=== PATIENT | male | born 1960 | race Caucasian/White ===

== ENCOUNTER → 2016-09-15 | Outpatient (CLI) | payer OTHER ==
[2016-09-15 18:01] LABS: ALT/SGPT 22 U/L (12-78); BLOOD UREA NITROGEN 17 mg/dl (7-18); CALCIUM 9.2 mg/dl (8.5-10.1); CARBON DIOXIDE 23 mmol/L (21-32); CHLORIDE 107 mmol/L (98-107); CHOLESTEROL 130 mg/dl (0-200); GLUCOSE 111 mg/dl (70-99); POTASSIUM 4.6 mmol/L (3.5-5.1); SODIUM 138 mmol/L (136-145); TRIGLYCERIDES 71 mg/dl (0-150); VERY LOW DENSITY LIPOPROT CALC 14 mg/dl
[2016-09-15 18:04] LABS: ALB/GLOB RATIO 1.2 (0.9-2); ALKALINE PHOSPHATASE 73 U/L (45-117); AST/SGOT 22 U/L (15-37); CHOLESTEROL/HDL RATIO 3.3; HDL CHOLESTEROL 40 mg/dl; LDL CHOLESTEROL CALCULATED 76 mg/dl
[2016-09-16 06:05] LABS: ESTIMATED AVERAGE GLUCOSE 117 mg/dl; HA1C FLAG Normal (Normal)
== END | disposition home or self-care (01) ==
LOC: C.LABPVFM 12:02
PROVIDERS: ATTEND Nurse Practitioner
DX: I10 Essential (primary) hypertension (principal); E78.5 Hyperlipidemia, unspecified; R73.01 Impaired fasting glucose

== ENCOUNTER → 2017-04-05 | Outpatient (CLI) | payer OTHER ==
[2017-04-05 17:48] LABS: ALT/SGPT 26 U/L (12-78); BLOOD UREA NITROGEN 19 mg/dl (7-18); BUN/CREATININE RATIO 14.7 (10-20); CALCIUM 9.3 mg/dl (8.5-10.1); CARBON DIOXIDE 26 mmol/L (21-32); CHLORIDE 106 mmol/L (98-107); CHOLESTEROL 151 mg/dl (0-200); GLUCOSE 119 mg/dl (70-99); POTASSIUM 4.7 mmol/L (3.5-5.1); SODIUM 136 mmol/L (136-145); TRIGLYCERIDES 64 mg/dl (0-150); VERY LOW DENSITY LIPOPROT CALC 13 mg/dl
[2017-04-05 17:51] LABS: ALB/GLOB RATIO 1.2 (0.9-2); ALKALINE PHOSPHATASE 81 U/L (45-117); AST/SGOT 22 U/L (15-37); CHOLESTEROL/HDL RATIO 3.6; HDL CHOLESTEROL 42 mg/dl; LDL CHOLESTEROL CALCULATED 96 mg/dl
[2017-04-06 07:46] LABS: ESTIMATED AVERAGE GLUCOSE 114 mg/dl; HA1C FLAG Normal (Normal)
== END | disposition home or self-care (01) ==
LOC: C.LABPVFM 10:59
PROVIDERS: ATTEND Nurse Practitioner
DX: E78.5 Hyperlipidemia, unspecified (principal); R73.01 Impaired fasting glucose; I10 Essential (primary) hypertension

== ENCOUNTER → 2017-10-06 | Outpatient (CLI) | payer OTHER ==
[2017-10-06 17:44] LABS: BLOOD UREA NITROGEN 20 mg/dl (7-18); CALCIUM 9.4 mg/dl (8.5-10.1); CARBON DIOXIDE 25 mmol/L (21-32); CREATININE 1.16 mg/dl (0.60-1.40); GLUCOSE 94 mg/dl (70-99); POTASSIUM 4.4 mmol/L (3.5-5.1); SODIUM 137 mmol/L (136-145)
== END | disposition home or self-care (01) ==
LOC: C.LABPVFM 13:47
PROVIDERS: ATTEND Nurse Practitioner
DX: I10 Essential (primary) hypertension (principal); R73.01 Impaired fasting glucose

== ENCOUNTER 2019-10-12 10:56 | Observation (INO) ==
[2019-10-12 11:42] LABS: Basophils # (auto) 0.06 K/uL (0-0.2); Basophils % (auto) 0.7 %; Eosinophils # (auto) 0.03 K/uL (0-0.5); Eosinophils % (auto) 0.3 %; Hematocrit (blood only) 37.5 % (42-52); Hemoglobin 13.1 g/dL (14.0-18.0); Immature Granulocytes # (auto) 0.11 K/uL (0.00-0.02); Immature Granulocytes % (auto) 1.3 %; Lymphocytes # (auto) 1.19 K/uL (1.2-3.4); Lymphocytes % (auto) 13.6 %; Mean Corpuscular Hemoglobin 31.9 pg (25-34); Mean Corpuscular Hgb Conc 34.9 g/dL (32-36); Mean Corpuscular Volume 91.2 fL (80-100); Mean Platelet Volume 10.2 fL (7.4-10.4); Monocytes # (auto) 0.57 K/uL (0.11-0.59); Monocytes % (auto) 6.5 %; Neutrophils # (auto) 6.78 K/uL (1.4-6.5); Neutrophils % (auto) 77.6 %; Platelet Count 252 K/uL (130-400); RDW Coefficient of Variation 15.7 % (11.5-14.5); Red Blood Count 4.11 M/uL (4.7-6.1); White Blood Count 8.74 K/uL (4.8-10.8)
[2019-10-12 11:48] LABS: Appearance Urine Clear (Clear); Bacteria Urine Automated Negative (Negative); Bilirubin Urine Negative (Negative); Blood Urine Negative (Negative); Color Urine Yellow; Epithelial Cell Urine Auto 0-5 /lpf (0-5); Glucose Urine UA Negative (Negative); Ketones Urine Negative (Negative); Leukocyte Esterase Urine Negative (Negative); Nitrite Urine Negative (Negative); Protein Urine 1+ (Negative); RBC Urine Automated 0-4 /hpf (0-4); Specific Gravity Urine 1.018 (1.000-1.030); Urobilinogen Urine Negative (Negative); pH Urine 5.5 (4.5-7.5)
[2019-10-12] MEDS: SODIUM CHLORIDE 0.9% 1000ML 1,000 ML IV SCH ×3 (11:53→17:18)
--- NOTE | 2019-10-12 11:53 | XRay Report ---
XR chest 1V portable CLINICAL HISTORY: 59 years-old Male presenting with arf, cough, flulike symptoms for several weeks. TECHNIQUE: Portable upright AP view of the chest was obtained. COMPARISON: None. FINDINGS: Borderline enlargement of the cardiac silhouette. Mild prominence of pulmonary vasculature with promi nence of interstitial lung markings. Bronchial wall cuffing is suspected diffusely. And a density wit h vague reticulonodular opacities in the lung bases, right greater than left. No large effusion or pn eumothorax. Degenerative changes of the thoracic spine. Upper abdomen normal. IMPRESSION: 1. Bibasilar reticulonodular vague opacities may suggest mild diffuse interstitial infiltrates or di ffuse bronchitis/bronchiolitis. This could relate to an inflammatory or atypical infectious etiology. 2. Borderline cardiomegaly with possible mild volume overload. ACT 112: Negative or not required by law. Results electronically sent 10/12/2019 11:51 AM to: Citlali Cole DO Electronically signed by: Alex Gannon M.D. 10/12/2019 11:51 AM
[2019-10-12 11:56] LABS: Albumin Level 3.2 gm/dl (3.4-5.0); BUN Creatinine Ratio 23.8 (10-20); Calcium 8.8 mg/dl (8.5-10.1); Creatinine Clr Calc Pharmacy 39.7 ml/min; Est GFR (African American) 33.8; Est GFR (Non-African American) 29.2; Potassium 3.6 mmol/L (3.5-5.1)
[2019-10-12 12:04] LABS: Albumin Globulin Ratio 0.8 (0.9-2); Total Protein 7.2 gm/dl (6.4-8.2); Troponin I 0.617 ng/ml (0-0.045)
--- NOTE | 2019-10-12 12:48 | CT Scan Report ---
CT abd pelvis wo con CLINICAL HISTORY: 59 years-old Male presenting with arf. TECHNIQUE: Multidetector CT of the abdomen and pelvis was performed without the use of intravenous co ntrast. IV contrast: None. One or more dose lowering techniques were used consistent with the princip les of ALA (as low as reasonably achievable), including automatic exposure control, mA or kV adjust ment to individual patient size, and/or use of iterative reconstruction. COMPARISON: None. CT DOSE (mGy.cm): The estimated cumulative dose is 972.16 mGycm. FINDINGS: Control Systems Developer topogram: Unremarkable. Lung bases: Multichamber enlargement of the heart. Coronary artery, aortic valve, and mitral annular calcification. No pericardial or pleural effusion. Extensive nodular infiltrates throughout the lung bases with a slight dependent predominance. Mild interlobular septal thickening may also be present. Liver: Normal morphology. Normal density. Biliary: No gross biliary ductal dilatation allowing for noncontrast technique. Normal gallbladder. Pancreas: Moderate atrophy Spleen: Normal. Adrenal glands: Normal noncontrast appearance. Kidneys and ureters: Normal noncontrast appearance. No nephrolithiasis. No hydronephrosis. Normal ure ters. Moderate bilateral perinephric fat infiltration, which is symmetric and nonspecific. 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 Bladder: Incompletely evaluated secondary to underdistention. Pelvic organs: Normal noncontrast appearance. Bowel: Normal. No bowel obstruction. Peritoneal cavity: No free fluid or intraperitoneal gas. Lymph nodes: No gross lymphadenopathy allowing for noncontrast technique. Vasculature: Atherosclerosis of the normal caliber abdominal aorta. Abdominal wall: Small fat-containing inguinal hernias. Musculoskeletal: Degenerative changes of the spine. IMPRESSION: 1. Extensive nodular infiltrates at the lung bases concerning for infectious bronchiolitis or bronch opneumonia versus aspiration. Less likely etiologies include metastatic disease and sarcoidosis. 2. Allowing for noncontrast technique, no acute intra-abdominal pathology. 3. No hydronephrosis or nephrolithiasis. No significant renal pathology. ACT 112: Negative or not required by law. Results electronically sent 10/12/2019 12:47 PM to: Citlali Cole DO Electronically signed by: Alex Gannon M.D. 10/12/2019 12:47 PM
[2019-10-12] MEDS ORDERED: ALBUT/IPRATROP 3MG/0.5MG NEB 3 ML VIAL NEB STA (12:57)
--- NOTE | 2019-10-12 14:40 | History & Physical Report ---
Date of Service October 12, 2019 Assessment & Plan (1) Fatigue: (2) KAMRYN (acute kidney injury): - Admit to med surg with tele - Consult nephrology - NSS at 125 mL/h, has already received 1 L NSS - Avoid nephrotoxins, holding home lisinopril as well as aspirin, renally dose other medications - Baseline creatinine of 1.1-1.3, CR = 2.35, BUN = 56 - Etiology likely decreased renal perfusion with poor oral intake, recent influenza a, and possibly taking routinely scheduled EL. (3) Generalized weakness: -Has been ongoing for approximately 3 weeks -Vitamin D supplementation was given x10 days, high-dose as per PCP, other vitamin deficiencies have recently been checked by PCP -IV fluids as above, other supportive care -PT/OT (4) Elevated troponin: - On admission, trop = 0.617, Trend troponins x2 sets - Patient does not demonstrate any findings consistent with ACS, it is likely that elevated troponin is secondary to demand ischemia, ?cardiorenal syndrome with valvular issues with aortic sclerosis - follow echo results - The patient admits to being very sedentary since becoming ill initially, so ideally would do a CTPE--due to his elevated kidney function it cannot be done today, consider tomorrow pending BMP trend - continue IV fluids as above - [place] [address] however the patient appear to be euvolemic on exam, also can hear loud murmur on exam, follow echo. - EKG reviewed as above, I do not have a previous scan to compare to, nor previous troponin for reference - Check 2 D echo - PT/OT consulted (5) Hypertension: - May continue atenolol, BP currently 132/76, holding lisinopril (6) Aortic valve sclerosis: - Hx of such, follow echo (7) Hyperlipidemia: - continue simvastatin 80 mg qpm, check lipid panel with am labs (8) Hidradenitis suppurativa: - stable, noted (9) Chronic gout: - Continue allopurinol (10) Tobacco abuse: - hx of smoking 3/4 ppd, has not been interested in smoking much at all, cessation encouraged, no nicotine patch at this time (11) DVT prophylaxis: - Teds, heparin subq CODE: FULL Dispo: From home, likely to remain in the hospital x 1-2 days. History of Present Illness Primary Care Provider: MADDIE Malone This is a 59 yo M with PMHx of HTN, HLD, impaired fasting glucose, moderate aortic and mitral regurg, hidradentis suppurativa, anxiety, chronic gout, chronic smoker with 3/4 ppd, who presents from PCP office for elevated BUN, Creatinine, Trop, and BNP. The patient recently was positive for influenza A, but upon going to his PCP ~ 3 wks ago, was outside of the treatment range for Tamiflu. Yesterday he had a follow-up appointment at his PCP for recheck of labs for worsening overall fatigue as part of a vitamin deficiency workup. Previously he had been vitamin D deficient and had taken high levels of this x10 days. He admits to poor appetite with intermittent nausea within the last week. He has not been taking his medications very routinely, but thinks that he did take lisinopril and baby aspirin the last 2 days. In regards to elevated troponin of 0.6 at time of admission, patient denies any chest pain, shortness of breath, exertional dyspnea, radiation of pain down the arm or up into the jaw. He also smokes routinely a 3/4 ppd however has not felt up to smoking cigarettes at all recently, and think he might have smoked a total 1/2 pack cigarettes within the past week. He does admit to having some intermittent lightheadedness whenever he would stand up abruptly within the past week. He has not ever required any supplemental oxygen. His daughter is at bedside and supports the history. Allergies Allergy/AdvReac Type Severity Reaction Status Date / Time No Known Drug Allergies Allergy Verified 10/12/19 12:11 Home Medications Home Medications Medication Instructions Recorded Confirmed Type hydrocodone 5 mg-acetaminophen 325 1 tab PO Q6H PRN #15 tab 07/12/19 10/12/19 Rx mg tablet allopurinol 300 mg PO QPM 10/12/19 10/12/19 History aspirin 81 mg PO QAM 10/12/19 10/12/19 History atenolol 75 mg PO QAM 10/12/19 10/12/19 History lisinopril 40 mg PO DAILY 10/12/19 10/12/19 History lorazepam 0.5 mg PO HS PRN 10/12/19 10/12/19 History potassium gluconate 2.5 meq PO QPM 10/12/19 10/12/19 History simvastatin 80 mg PO QPM 10/12/19 10/12/19 History Past Med/Surg History Medical History Anxiety (Chronic) Aortic valve sclerosis (Chronic) Chronic gout (Chronic) Dermatitis (Acute) Fatigue Hidradenitis suppurativa (Chronic) Hyperlipidemia (Chronic) Hypertension (Chronic) Impaired fasting glucose (Chronic) Influenza A (Acute) Lightheaded Poor appetite Vitamin D deficiency (Chronic) Surgical History No pertinent past surgical history Family History Father Heart disease Mother Leukemia Denies family history of Ovarian cancer Prostate cancer Myocardial infarction Breast cancer Colorectal cancer Stroke Social History Preferred Language: Maori Event Lighting Specialist Required: No Beliefs That Will Affect Care: None marital status: Current Living Situation: Spouse current occupational status: employed current occupation: self employed Other Information That Helps Us Care for You: No Feels Safe at Home: Yes Safety Concerns: Feels Safe At This Time Smoking Status: Current every day smoker Tobacco Type: cigarettes ; packs per day: 1 ; Do You Dip or Chew Tobacco: No ; Second Hand Exposure: No ; Tobacco Cessation Education Requested by Patient: No Hx Alcohol Use: Yes (rarely) Alcohol type: wine Hx Substance Use: No Dental Care, Regularly: Yes Seatbelt Use: always Sunscreen Use: No Review of Systems Review of Systems: Constitutional: No fever, sweats or chills, intermittent lightheadedness with abrupt standing Eyes: No diplopia, no worsening or blurred vision ENT: normal hearing, no trouble swallowing Respiratory: + Occasional cough, no sputum, no dyspnea at rest or on exertion Cardiovascular: No chest pain, tightness or palpitations Abdomen: No pain, nausea, vomiting, diarrhea or constipation Musculoskeletal: No joint pain, calf pain, swelling Neurologic: + Generalized weakness, no numbness/tingling, or balance problems Psychiatric: No anxiety or depression Skin: No rash or itch Physical Exam Physical Exam: General: awake, alert, no apparent distress Head: Normocephalic, atraumatic ENT: PERRL, EOMI, no pharyngeal exudate, mucous membranes moist Chest: on room air, + faint crackles heard at bases bilaterally, no wheezes rales or rhonchi otherwise Cardiac: Regular rate and rhythm, + loud TY, grade III/, no JVD, normal peripheral pulses, good capillary refill Abdominal: NABS x 4 quadrants, soft, nontender to palpation, no rebound, guarding or tenderness Extremities: Normal inspection, no peripheral edema or erythema, calfs nontender to palpation Psych: Normal mood and affect Neuro: AAO x 3, strength intact bilaterally and rated 5/5, no motor deficits, speech is clear, no peripheral sensory deficits Skin: no rash or erythema Results & Data Vital Signs (Past 12 Hours) Vital Signs Temp Pulse Pulse Resp BP BP Pulse Ox 10/12/19 13:19 71 17 96 10/12/19 13:00 73 20 132/76 97 10/12/19 11:06 36.4 C L 63 16 115/70 96 Diagnostic Findings XR chest 1V portable CLINICAL HISTORY: 59 years-old Male presenting with arf, cough, flulike symptoms for several weeks. TECHNIQUE: Portable upright AP view of the chest was obtained. COMPARISON: None. FINDINGS: Borderline enlargement of the cardiac silhouette. Mild prominence of pulmonary vasculature with prominence of interstitial lung markings. Bronchial wall cuffing is suspected diffusely. And a density with vague reticulonodular opacities in the lung bases, right greater than left. No large effusion or pneumothorax. Degenerative changes of the thoracic spine. Upper abdomen normal. IMPRESSION: 1. Bibasilar reticulonodular vague opacities may suggest mild diffuse interstitial infiltrates or diffuse bronchitis/bronchiolitis. This could relate to an inflammatory or atypical infectious etiology. 2. Borderline cardiomegaly with possible mild volume overload. ACT 112: Negative or not required by law. Results electronically sent 10/12/2019 11:51 AM to: Citlali Cole DO Electronically signed by: Alex Gannon M.D. 10/12/2019 11:51 AM ECG Additional Comments: 12-OCT-2019 11:51:10 [facility]-EDSTAT ROUTINE RETRIEVAL Normal sinus rhythm ST & T wave abnormality, consider lateral ischemia Prolonged QT Abnormal ECG No previous ECGs available 25mm/s 10mm/mV 150Hz 9.0.9 12SL 241 SMILEY: 16 Referred by: REFERRED SELF Unconfirmed Vent. rate 64 BPM [place] interval 202 ms QRS duration 102 ms QT/QTc 462/476 ms P-R-T axes 40 6 134 Code Status & VTE Plan Code Status Full code-discussed with the patient and his daughter at bedside Supervising Physician Co-Signing Physician Notes I have seen and examined patient with Samantha Ny PA-C and I agree with the assessment and plan. PG Care Time/CCT Total # of Minutes Spent Total Time Spent with Patient: Total time spent is greater than 50% in coordination of care (as documented) at patient's floor/unit and/or counseling patient: Coding Level of Care Code 72032 Initial Inpt Care Lvl 3 Diagnoses Fatigue R53.83 KAMRYN (acute kidney injury) N17.9 Generalized weakness R53.1 Elevated troponin R79.89 Hypertension I10 Aortic valve sclerosis I35.8 Hyperlipidemia E78.5 Hidradenitis suppurativa L73.2 Chronic gout [id number] Tobacco abuse Z72.0 DVT prophylaxis Z29.9
--- NOTE | 2019-10-12 16:01 | Electrocardiogram Report ---
Test Reason : Blood Pressure : / mmHG Vent. Rate : 064 BPM Atrial Rate : 064 BPM P-R Int : 202 ms QRS Dur : 102 ms QT Int : 462 ms P-R-T Axes : 040 006 134 degrees QTc Int : 476 ms Normal sinus rhythm Prolonged QT Abnormal ECG No previous ECGs available Confirmed by Mane Win ([id number]) on 10/12/2019 4:00:58 PM Referred By: REFERRED SELF Confirmed By:Mane Win
[2019-10-12] MEDS ORDERED: LORazepam 0.5 MG TAB PO PRN (16:44)
[2019-10-12] MEDS ORDERED: ONDANSETRON INJ 2 MG/ML 2 ML VIAL IV PRN (16:44)
[2019-10-12] MEDS ORDERED: ACETAMINOPHEN 325 MG TAB PO PRN (16:44)
[2019-10-12] MEDS: SIMVASTATIN 80 MG TAB PO SCH (20:24)
[2019-10-12] MEDS: allopurinoL 300 MG TAB PO SCH (20:24)
[2019-10-12] MEDS: HEPARIN SOD 5,000 UNIT/0.5 ML VIAL SQ SCH (20:25)
[2019-10-12] MEDS ORDERED: POTASSIUM GLUCONATE PO SCH (21:00)
[2019-10-13] MEDS: SODIUM CHLORIDE 0.9% 1000ML 1,000 ML IV SCH (01:39)
[2019-10-13 04:00] LABS: Hematocrit (blood only) 32.1 % (42-52); Mean Corpuscular Hemoglobin 31.5 pg (25-34); Mean Corpuscular Hgb Conc 34.3 g/dL (32-36); Mean Platelet Volume 9.7 fL (7.4-10.4); Platelet Count 212 K/uL (130-400); RDW Standard Deviation 53.1 fL (36.4-46.3); Red Blood Count 3.49 M/uL (4.7-6.1)
[2019-10-13 04:20] LABS: Albumin Level 2.6 gm/dl (3.4-5.0); BUN Creatinine Ratio 23.4 (10-20); Calcium 7.7 mg/dl (8.5-10.1); Creatinine Clr Calc Pharmacy 44.8 ml/min; Est GFR (African American) 39.4; Potassium 3.8 mmol/L (3.5-5.1)
[2019-10-13 04:30] LABS: Albumin Globulin Ratio 0.8 (0.9-2); Bilirubin,Total 0.8 mg/dl (0.2-1); Globulin 3.1 gm/dl (2.5-4.0); Total Protein 5.7 gm/dl (6.4-8.2)
[2019-10-13] MEDS: HEPARIN SOD 5,000 UNIT/0.5 ML VIAL SQ SCH ×2 (06:05→13:26)
[2019-10-13 07:25] LABS: Estimated Average Glucose 126 mg/dl
[2019-10-13] MEDS ORDERED: LACTATED RINGER'S 1,000 ML IV SCH (08:15)
[2019-10-13] MEDS: ATENOLOL 25 MG TABLET PO SCH (09:09)
[2019-10-13] MEDS: ASPIRIN 81 MG ECTAB PO SCH (09:17)
--- NOTE | 2019-10-13 11:25 | Emergency Department Note ---
Entered by Angelina Vera acting as a scribe for History of Present Illness General Chief complaint: Referred by Doctor Stated complaint: DR REF TO HAVE LEVELS CHECKED Time Seen by Provider: 10/12/19 11:12 Source: patient and family (daughter) History of Present Illness Onset (ago): hour(s) (today ) Location: head (general ) Pain Consistency: + other (episode ) Maximum Pain Intensity: 0 Quality: + other (referral by doctor) Associated symptoms: + cough (intermittent), + loss of appetite and + other (negative changes in urine) The patient is a 59 year old male who presents to the Emergency Room with complaints of an episode of referral by his doctor that occurred today. The patient states that he went to his PCP yesterday for a wellness visit and labs were performed at this time. The patient states that over the past 2 weeks he has had flu-like symptoms. The patient reports an intermittent cough over the past several weeks. The patient states that he still does not "feel right". He states that during this time he has had a loss of appetite. The patient denies any recent changes in his urine, and he denies any history of kidney problems. The patient's daughter reports that over the past several weeks the patient has not been taking his medications regularly. Home Medications Home Medications Medication Instructions Recorded Confirmed Type hydrocodone 5 mg-acetaminophen 325 1 tab PO Q6H PRN #15 tab 07/12/19 10/12/19 Rx mg tablet allopurinol 300 mg PO QPM 10/12/19 10/12/19 History aspirin 81 mg PO QAM 10/12/19 10/12/19 History atenolol 75 mg PO QAM 10/12/19 10/12/19 History lisinopril 40 mg PO DAILY 10/12/19 10/12/19 History lorazepam 0.5 mg PO HS PRN 10/12/19 10/12/19 History potassium gluconate 2.5 meq PO QPM 10/12/19 10/12/19 History simvastatin 80 mg PO QPM 10/12/19 10/12/19 History Allergies Allergy/AdvReac Type Severity Reaction Status Date / Time No Known Drug Allergies Allergy Verified 10/12/19 12:11 Past Med/Surg History Medical History Anxiety (Chronic) Aortic valve sclerosis (Chronic) Chronic gout (Chronic) Dermatitis (Acute) Fatigue Hidradenitis suppurativa (Chronic) Hyperlipidemia (Chronic) Hypertension (Chronic) Impaired fasting glucose (Chronic) Influenza A (Acute) Lightheaded Poor appetite Vitamin D deficiency (Chronic) Surgical History No pertinent past surgical history Family History Father Heart disease Mother Leukemia Denies family history of Ovarian cancer Prostate cancer Myocardial infarction Breast cancer Colorectal cancer Stroke Social History Preferred Language: Turkish Improvement Intern Required: No Beliefs That Will Affect Care: None marital status: Current Living Situation: Spouse current occupational status: employed current occupation: self employed Other Information That Helps Us Care for You: No Feels Safe at Home: Yes Safety Concerns: Feels Safe At This Time Smoking Status: Current every day smoker Tobacco Type: cigarettes ; packs per day: 1 ; Do You Dip or Chew Tobacco: No ; Second Hand Exposure: No ; Tobacco Cessation Education Requested by Patient: No Hx Alcohol Use: Yes (rarely) Alcohol type: wine Hx Substance Use: No Dental Care, Regularly: Yes Seatbelt Use: always Sunscreen Use: No Review of Systems See HPI for pertinent positives & negatives. and A total of 10 systems reviewed and were otherwise negative Physical Exam Vital Signs Vital Signs - 24 hr 10/12/19 13:00 10/12/19 13:19 10/12/19 14:39 Pulse Rate [Radial] 73 71 69 Pulse Rhythm [Radial] Regular Respiratory Rate 20 17 20 Respiratory Effort / Characteristics Non-Labored Non-Labored Spontaneous Respiratory Depth Normal Respiratory Pattern Regular Blood Pressure [Left Arm] 132/76 Blood Pressure Mean [Left Arm] 94 Pulse Oximetry 97 96 98 Oxygen Delivery Method Room Air Room Air GENERAL: alert, ill-appearing, well nourished, no distress, non-toxic EYE EXAM: normal conjunctiva, PERRL and EOM's grossly intact OROPHARYNX: no exudate, no erythema, lips, buccal mucosa, and tongue normal and mucous membranes are moist NECK: supple, no nuchal rigidity, no adenopathy, non-tender LUNGS: Clear to auscultation. Normal chest wall mechanics, no w/r/r, no increased work of breathing HEART: no murmurs, S1 normal and S2 normal ABDOMEN: abdomen soft, non-tender, normo-active bowel sounds, no masses, no rebound or guarding. BACK: Back is symmetrical on inspection and there is no deformity, no midline tenderness, no CVA tenderness. SKIN: no rashes and no bruising, no petechiae UPPER EXTREMITIES: upper extremities are grossly normal. FROM, nml pulses b/l. LOWER EXTREMITIES: No pitting edema. FROM, nml pulses b/l. NEURO EXAM: Normal sensorium, cranial nerves II-XII grossly intact, normal speech, no gross weakness of arms, no gross weakness of legs. Course Course 1124: Past medical records reviewed. The patient was evaluated in room A3. A complete history and physical exam was performed. 1326: Patient updated on results. Discussed with him need for additional evaluation and management. Patient and daughter bedside in agreement. 1426: I discussed the case with Dr. Coughlin[facility] Hospitalist who accepts the patient for further evaluation. 1522: Patient remaining hemodynamically stable in the emergency room. Patient is being cautiously hydrated with IV fluids. Patient kept up-to-date on results while awaiting hospitalist evaluation. Administered Medications Allopurinol (Zyloprim) 300 mg PO QPM [facility] Stop: 11/11/19 20:59 Last Admin: 10/12/19 20:24 Dose: 300 mg Documented by: [id number] Aspirin (Ecotrin Ectab) 81 mg PO QAM [facility]ITI Stop: 11/12/19 08:59 Last Admin: 10/13/19 09:17 Dose: 81 mg Documented by: [id number] Atenolol (Tenormin) 75 mg PO QAM TITI Stop: 11/12/19 08:59 Last Admin: 10/13/19 09:09 Dose: 75 mg Documented by: [id number] Heparin Sodium (Porcine) (Heparin Sodium (Porcine)) 5,000 units SQ Q8 TITI Stop: 11/11/19 21:59 Last Admin: 10/13/19 06:05 Dose: 5,000 units Documented by: [id number] Cosigned by: [id number] Admin: 10/12/19 20:25 Dose: 5,000 units Documented by: [id number] Cosigned by: [id number] Simvastatin (Zocor) 80 mg PO QPM [facility] Stop: 11/11/19 20:59 Last Admin: 10/12/19 20:24 Dose: 80 mg Documented by: [id number] Discontinued Medications Albuterol (Duoneb) 3 ml NEB NOW STA Stop: 10/12/19 12:58 Last Admin: 10/12/19 13:19 Dose: 3 ml Documented by: [id number] Sodium Chloride (Nss 1000ml) 1,000 mls @ 200 mls/hr IV .Q5H TITI Stop: 11/11/19 11:44 Last Admin: 10/12/19 17:14 Dose: Not Given Documented by: [id number] Infusion: 10/12/19 17:14 Dose: 0 mls/hr Documented by: [id number] Admin: 10/12/19 11:53 Dose: 200 mls/hr Documented by: [id number] Sodium Chloride (Nss 1000ml) 1,000 mls @ 125 mls/hr IV .Q8H TITI Stop: 11/11/19 16:43 Last Infusion: 10/13/19 09:44 Dose: 0 mls/hr Documented by: [id number] Admin: 10/13/19 01:39 Dose: 125 mls/hr Documented by: [id number] Infusion: 10/13/19 01:18 Dose: 125 mls/hr Documented by: [id number] Admin: 10/12/19 17:18 Dose: 125 mls/hr Documented by: [id number] Lactated Ringer's (Lr) 1,000 mls @ 125 mls/hr IV .Q8H TITI Stop: 11/12/19 08:14 Last Infusion: 10/13/19 10:47 Dose: 0 mls/hr Documented by: [id number] Admin: 10/13/19 09:26 Dose: 125 mls/hr Documented by: [id number] Medical Decision Making Differential Diagnosis Differential Diagnosis includes but is not limited to dehydration, stroke, anemia, hypoglycemia, hyponatremia, hypernatremia, urinary tract infection, pneumonia, bronchitis, sepsis, gastroenteritis, additional abdominal pathology, metabolic abnormalities and infections. Medical Records Attestation: I reviewed the patient's medical records. Home Medications Current Medication List: was personally reviewed by me Laboratory Data Attestation: I reviewed the patient's lab results. Result diagrams: 10/13/19 03:48 10/13/19 03:48 Lab Results 0310/12/19 10/12/19 Range/Units 11:25 11:25 11:25 WBC 8.74 (4.8-10.8) K/uL RBC 4.11 L (4.7-6.1) M/uL Hgb 13.1 L (14.0-18.0) g/dL Hct 37.5 L (42-52) % MCV 91.2 (80-100) fL MCH 31.9 (25-34) pg MCHC 34.9 (32-36) g/dL RDW Std Deviation 52.0 H (36.4-46.3) fL RDW Coeff of Katelin 15.7 H (11.5-14.5) % Plt Count 252 (130-400) K/uL MPV 10.2 (7.4-10.4) fL Immature Gran % (Auto) 1.3 % Neut % (Auto) 77.6 % Lymph % (Auto) 13.6 % [place] % (Auto) 6.5 % Eos % (Auto) 0.3 % Baso % (Auto) 0.7 % Immature Gran # (Auto) 0.11 H (0.00-0.02) K/uL Neut # (Auto) 6.78 H (1.4-6.5) K/uL Lymph # (Auto) 1.19 L (1.2-3.4) K/uL [place] # (Auto) 0.57 (0.11-0.59) K/uL Eos # (Auto) 0.03 (0-0.5) K/uL Baso # (Auto) 0.06 (0-0.2) K/uL Sodium 137 (136-145) mmol/L Potassium 3.6 (3.5-5.1) mmol/L Chloride 109 H (98-107) mmol/L Carbon Dioxide 21 (21-32) mmol/L Anion Gap 7.0 (3-11) BUN 56 H (7-18) mg/dl Creatinine 2.35 H (0.6-1.4) mg/dl Est Cr Clr Drug Dosing 39.7 ml/min Est GFR ( Amer) 33.8 Est GFR (Non-Af Amer) 29.2 BUN/Creatinine Ratio 23.8 H (10-20) Glucose 115 H (70-99) mg/dl Calcium 8.8 (8.5-10.1) mg/dl Magnesium 2.0 (1.8-2.4) mg/dl Total Bilirubin 1.0 (0.2-1) mg/dl AST 38 H (15-37) U/L ALT 42 (12-78) U/L Alkaline Phosphatase 62 (45-117) U/L Troponin I 0.617 H* (0-0.045) ng/ml NT-Pro-B Natriuret Pep 39281 H (0-900) pg/ml Total Protein 7.2 (6.4-8.2) gm/dl Albumin 3.2 L (3.4-5.0) gm/dl Globulin 4.0 (2.5-4.0) gm/dl Albumin/Globulin Ratio 0.8 L (0.9-2) Urine Color Yellow Urine Appearance Clear (Clear) Urine pH 5.5 (4.5-7.5) Ur Specific [place] 1.018 (1.000-1.030) Urine Protein 1+ H (Negative) Urine Glucose (UA) Negative (Negative) Urine Ketones Negative (Negative) Urine Blood Negative (Negative) Urine Nitrite Negative (Negative) Urine Bilirubin Negative (Negative) Urine Urobilinogen Negative (Negative) Ur Leukocyte Esterase Negative (Negative) Urine WBC (Auto) 1-5 (0-5) /hpf Urine RBC (Auto) 0-4 (0-4) /hpf U Hyaline Cast (Auto) 1-5 (0-5) /lpf U Epithel Cells (Auto) 0-5 (0-5) /lpf Urine Bacteria (Auto) Negative (Negative) Imaging Data Radiologist's Impression: Radiology results as stated below per my review and the radiologist's interpretation: XR chest 1V portable CLINICAL HISTORY: 59 years-old Male presenting with arf, cough, flulike symptoms for several weeks. TECHNIQUE: Portable upright AP view of the chest was obtained. COMPARISON: None. FINDINGS: Borderline enlargement of the cardiac silhouette. Mild prominence of pulmonary vasculature with prominence of interstitial lung markings. Bronchial wall cuffing is suspected diffusely. And a density with vague reticulonodular opacities in the lung bases, right greater than left. No large effusion or pneumothorax. Degenerative changes of the thoracic spine. Upper abdomen normal. IMPRESSION: 1. Bibasilar reticulonodular vague opacities may suggest mild diffuse interstitial infiltrates or diffuse bronchitis/bronchiolitis. This could relate to an inflammatory or atypical infectious etiology. 2. Borderline cardiomegaly with possible mild volume overload. ACT 112: Negative or not required by law. Results electronically sent 10/12/2019 11:51 AM to: Citlali Cole DO Electronically signed by: Alex Gannon M.D. 10/12/2019 11:[address] abd pelvis wo con CLINICAL HISTORY: 59 years-old Male presenting with arf. TECHNIQUE: Multidetector CT of the abdomen and pelvis was performed without the use of intravenous contrast. IV contrast: None. One or more dose lowering techniques were used consistent with the principles of ALARA (as low as r easonably achievable), including automatic exposure control, mA or kV adjustment to individual patient size, and/or use of iterative reconstruction. COMPARISON: None. CT DOSE (mGy.cm): The estimated cumulative dose is 972.16 mGycm. FINDINGS: Camera Systems Engineer topogram: Unremarkable. Lung bases: Multichamber enlargement of the heart. Coronary artery, aortic valve, and mitral annular calcification. No pericardial or pleural effusion. Extensive nodular infiltrates throughout the lung bases with a slight dependent predominance. Mild interlobular septal thickening may also be present. Liver: Normal morphology. Normal density. Biliary: No gross biliary ductal dilatation allowing for noncontrast technique. Normal gallbladder. Pancreas: Moderate atrophy Spleen: Normal. Adrenal glands: Normal noncontrast appearance. Kidneys and ureters: Normal noncontrast appearance. No nephrolithiasis. No hydronephrosis. Normal ureters. Moderate bilateral perinephric fat infiltration, which is symmetric and nonspecific. 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 Bladder: Incompletely evaluated secondary to underdistention. Pelvic organs: Normal noncontrast appearance. Bowel: Normal. No bowel obstruction. Peritoneal cavity: No free fluid or intraperitoneal gas. Lymph nodes: No gross lymphadenopathy allowing for noncontrast technique. Vasculature: Atherosclerosis of the normal caliber abdominal aorta. Abdominal wall: Small fat-containing inguinal hernias. Musculoskeletal: Degenerative changes of the spine. IMPRESSION: 1. Extensive nodular infiltrates at the lung bases concerning for infectious bronchiolitis or bronchopneumonia versus aspiration. Less likely etiologies include metastatic disease and sarcoidosis. 2. Allowing for noncontrast technique, no acute intra-abdominal pathology. 3. No hydronephrosis or nephrolithiasis. No significant renal pathology. ACT 112: Negative or not required by law. Results electronically sent 10/12/2019 12:47 PM to: Citlali Cole DO Electronically signed by: Alex Gannon M.D. 10/12/2019 12:47 PM ECG Data Attestation: I personally reviewed and interpreted this ECG as follows: Indication: + weakness Rate (beats per minute): 64 Rhythm: + sinus rhythm ECG Intervals/blocks: + First degree AV block ECG ST segments: + T-wave inversions (I, avL, V4-V6); no ST elevation ECG Findings: no PACs and no PVCs Comparison ECG Date: no prior available Blood Pressure Blood Pressure Findings: Elevated blood pressure Blood Pressure Disposition: further management by hospitalist ETTA Narrative Patient sent in after outpatient labs revealed acute renal failure. Patient reevaluated by his PCP after being diagnosed with influenza 2 weeks ago. Patient states he has had weakness, fatigue, poor appetite. Patient did feel he was staying up on fluid intake though. Patient afebrile here and hemodynamically stable throughout. Patient with no prior history of renal dysfunction or disease. Patient found to have a new elevated creatinine. No evidence of urinary tract infection. Patient sent for CT imaging which was reassuring and did not reveal any additional obstructive uropathy. Slight abnormalities noted at lung bases, likely due to recent influenza and known history of tobacco abuse. No evidence of focal consolidation. Given lack of leukocytosis and fever as well as other respiratory symptoms at this time. I do not feel patient needs started on antibiotics for a respiratory infection. Patient and family kept aware of plan and all results and were in agreement. Case was discussed with the hospitalist. I did note patient had an abnormal EKG, priors that were obtained by case management from his PCPs office were remote however did suggest that at some point there had been a change in his EKG. Patient's troponin here was elevated, however patient had no symptoms of chest pain or shortness of breath. My initial suspicion was that the patient's elevated troponin and elevated BNP were secondary to his acute renal failure. Patient was made aware of this also as well as likely need for additional card iac evaluation, he and daughter verbalized understanding. At this time I do not suspect evolving ACS or CHF. Impression & Plan Generalized weakness, Acute renal failure, Elevated troponin, Abnormal EKG, Tobacco abuse, Elevated brain natriuretic peptide (BNP) level Discharge Plan Visit Data *Final* Discharge Date/Time: 10/12/19 16:19 Chief Complaint: Referred by Doctor Stated Complaint: DR REF TO HAVE LEVELS CHECKED ED Provider: Citlali Cole Discharge Problem: Generalized weakness, Acute renal failure, Elevated troponin, Abnormal EKG, Tobacco abuse, Elevated brain natriuretic peptide (BNP) level Patient Disposition: Admitted As Inpatient Discharge Instructions Interventions: ED Discharge Assessment Last Done: 10/12/19 16:19 Discharge Problem: Acute renal failure Qualifiers: Acute renal failure type: unspecified Qualified Code(s): N17.9 - Acute kidney failure, unspecified The scribe's documentation has been prepared under my direction and personally reviewed by me in its entirety. I confirm that the note above accurately reflects all work, treatment, procedures, and medical decision making performed by me.
--- NOTE | 2019-10-13 12:39 | Nephrology Consultation ---
Date of Consultation October 13, 2019 Assessment & Plan (1) KAMRYN (acute kidney injury): - BP and volume status are acceptable - Mild NAGMA associated with KAMRYN and NSS - Hold IVF at this time - Continue to hold Lisinopril - Volume status euvolemic - Non-oliguric - KAMRYN attributed to volume depletion and EL coupled with recent infection - UA + protein, acellular microscopy - CT did not demonstrate any evidence of obstruction - Electrolytes are normal - Albumin low - Encourage nutrition - Repeat metabolic profile tomorrow - Outpatient follow up with nephrology can be arranged at discharge (2) Hypertension: - Continue to hold EL for now History of Present Illness Reason for Consultation: KAMRYN Requesting Physician: Victorina Ny PA-C> Attending Physician: Rosalio Lara MD History of Present Illness Mr. Carly Yee is a 59-year-old male seen in consultation today for acute kidney injury. Mr. Yee presented to [facility] yesterday with generalized fatigue and malaise. The patient was referred by his PCP with laboratory studies demonstrating kidney injury and an elevated troponin. Symptoms are improving. Laboratory studies are als improving. EKG was reassuring. The patient was found to be volume depleted on presentation. He has tolerated aggressive IVF hydration well. Urine output is appropriate. He is afebrile. He denies myalgias or arthralgias. Appetite is good. He denies any urinary symptoms. Mr. Yee had been diagnosed with influenza A several weeks ago. He presented outside the window for Tamiflu and was managed conservatively. Unfortunately, despite improvement in respiratory symptoms, generalized fatigue and malaise persisted. Medical history is notable for hypertension, hyperlipidemia, anxiety, gout, smoker, and hidradenitis suppurativa. Review of symptoms was also notable for mild orthostatic lightheadedness without syncope or presyncope. This has also improve with supportive care. Allergies Allergy/AdvReac Type Severity Reaction Status Date / Time No Known Drug Allergies Allergy Verified 10/12/19 12:11 Home Medications Home Medications Medication Instructions Recorded Confirmed Type hydrocodone 5 mg-acetaminophen 325 1 tab PO Q6H PRN #15 tab 07/12/19 10/12/19 Rx mg tablet allopurinol 300 mg PO QPM 10/12/19 10/12/19 History aspirin 81 mg PO QAM 10/12/19 10/12/19 History atenolol 75 mg PO QAM 10/12/19 10/12/19 History lisinopril 40 mg PO DAILY 10/12/19 10/12/19 History lorazepam 0.5 mg PO HS PRN 10/12/19 10/12/19 History potassium gluconate 2.5 meq PO QPM 10/12/19 10/12/19 History simvastatin 80 mg PO QPM 10/12/19 10/12/19 History Patient History Medical History Anxiety (Chronic) Aortic valve sclerosis (Chronic) Chronic gout (Chronic) Dermatitis (Acute) Fatigue Hidradenitis suppurativa (Chronic) Hyperlipidemia (Chronic) Hypertension (Chronic) Impaired fasting glucose (Chronic) Influenza A (Acute) Lightheaded Poor appetite Vitamin D deficiency (Chronic) Surgical History No pertinent past surgical history Family History Father Heart disease Mother Leukemia Denies family history of Ovarian cancer Prostate cancer Myocardial infarction Breast cancer Colorectal cancer Stroke Social History Preferred Language: Welsh Communication Ability: Effective 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 Beliefs That Will Affect Care: None marital status: Current Living Situation: Spouse current occupational status: employed current occupation: self employed Other Information That Helps Us Care for You: No Feels Safe at Home: Yes Safety Concerns: Feels Safe At This Time Smoking Status: Current every day smoker Tobacco Type: cigarettes ; packs per day: 1 ; Do You Dip or Chew Tobacco: No ; Second Hand Exposure: No ; Tobacco Cessation Education Requested by Patient: No Hx Alcohol Use: Yes (rarely) Alcohol type: wine Hx Substance Use: No Dental Care, Regularly: Yes Seatbelt Use: always Sunscreen Use: No Review of Systems Constitutional: no weight loss, no weight gain and no problem reported Eyes: no problem reported Ear, Nose, Mouth, Throat: no problem reported Respiratory: no problem reported Cardiovascular: no problem reported Gastrointestinal: no problem reported Musculoskeletal: no problem reported Integumentary: no problem reported Neurologic: no problem reported Psychiatric: no problem reported Endocrine: no problem reported Hematologic / Lymphatic: no problem reported Physical Exam Constitutional: well developed; no acute distress Eyes: no scleral abnormality and no corneal abnormality ENMT: Mouth: no oral mucosal abnormality and oral mucous membranes not dry Neck: normal visual inspection and trachea midline Respiratory: normal respiratory effort Auscultation: lungs clear to auscultation bilaterally Cardiovascular: Rate/Rhythm: regular rate Heart Sounds: normal S1 and normal S2 Extremities: no edema Musculoskeletal: Extremities: no cyanosis and no clubbing Skin: normal turgor; no lesions Neurologic: Motor/Sensory: no tremor and no asterixis Psychiatric: Orientation: alert and oriented x 3 Results & Data Vital Signs (Past 12 Hours) Vital Signs Temp Pulse Pulse Resp BP Pulse Ox 10/13/19 12:04 36.6 C 65 16 168/73 H 98 10/13/19 07:40 36.6 C 63 17 147/74 H 99 10/13/19 07:19 66 10/13/19 03:11 36.8 C 71 18 126/70 97 10/13/19 01:31 72 Laboratory Results Laboratory Results - last 24 hr 10/12/19 10/13/19 10/13/19 19:33 03:48 03:48 WBC 6.80 RBC 3.49 L Hgb 11.0 L Hct 32.1 L MCV 92.0 MCH 31.5 MCHC 34.3 RDW Std Deviation 53.1 H RDW Coeff of Katelin 16.0 H Plt Count 212 MPV 9.7 Sodium Potassium Chloride Carbon Dioxide Anion Gap BUN Creatinine Est Cr Clr Drug Dosing Est GFR ( Amer) Est GFR (Non-Af Amer) BUN/Creatinine Ratio Glucose Estimat Average Glucose Hemoglobin A1c Calcium Total Bilirubin AST ALT Alkaline Phosphatase Troponin I 0.376 H* 0.287 H* Total Protein Albumin Globulin Albumin/Globulin Ratio Triglycerides Cholesterol LDL Cholesterol, Calc VLDL Cholesterol, Calc HDL Cholesterol Cholesterol/HDL Ratio 10/13/19 10/13/19 03:48 03:48 WBC RBC Hgb Hct MCV MCH MCHC RDW Std Deviation RDW Coeff of Katelin Plt Count MPV Sodium 139 Potassium 3.8 Chloride 115 H Carbon Dioxide 19 L Anion Gap 5.0 BUN 48 H Creatinine 2.07 H Est Cr Clr Drug Dosing 44.8 Est GFR ( Amer) 39.4 Est GFR (Non-Af Amer) 34.0 BUN/Creatinine Ratio 23.4 H Glucose 88 Estimat Average Glucose 126 Hemoglobin A1c 6.0 H Calcium 7.7 L Total Bilirubin 0.8 AST 30 ALT 33 Alkaline Phosphatase 51 Troponin I Total Protein 5.7 L D Albumin 2.6 L Globulin 3.1 Albumin/Globulin Ratio 0.8 L Triglycerides 112 Cholesterol 121 LDL Cholesterol, Calc 73 VLDL Cholesterol, Calc 22 HDL Cholesterol 26 Cholesterol/HDL Ratio 5 PG Care Time/CCT Total # of Minutes Spent Total Time Spent with Patient: Total time spent is greater than 50% in coordination of care (as documented) at patient's floor/unit and/or counseling patient: Coding Level of Care Code 93706 Inpt Consult Level 4 Diagnoses KAMRYN (acute kidney injury) N17.9 Hypertension I10
--- NOTE | 2019-10-13 16:30 | XCELERA ---
[id number] \\[id number]
--- NOTE | 2019-10-13 20:37 | Hospitalist Progress Note ---
Date of Service October 13, 2019 Assessment & Plan (1) Uremic encephalopathy: Suspect this is the cause of his fatigue and reduced appetite given dramatic improvement. (2) KAMRYN (acute kidney injury): Appreciate nephrology consult - Suspected mostly pre-renal with improvement with IV fluids Possible intrinsic damage from influenza itself, however UA relatively unremarkable No post-renal cause on CT (3) Hyperchloremic metabolic acidosis: Secondary to NSS given on admission. IV fluids now d/c (see below). (4) Generalized weakness: as above for uremic encephalopathy PT/OT (5) Elevated troponin: Echocardiogram pending, need to r/o cardiomyopathy but also will see if any valvular disease given murmur on exam. Troponin trending down. Suspected demand-ischemic (6) Hypertension: Continue atenolol, holding lisinopril in light of KAMRYN. Stable BPO without lisinopril (7) Hyperlipidemia: Continue simvastatin 80 mg qpm, LDL 73 (8) Hidradenitis suppurativa: No current abscesses/cysts (9) Chronic gout: Continue allopurinol (10) Tobacco abuse: Recent cessation secondary to current illness. No known COPD, but mild wheezing on exam. Encouraged continued cessation. (11) Pre-diabetes: HbA1C 6.0. Lifestyle changes only warranted at present. (12) Mitral regurgitation and mitral stenosis: mod-severe MR, moderate MS Will consult cardiology as unclear if acute and will require close follow up. No influenza cardiomyopathy on echo (13) DVT prophylaxis: [place] SQ while inpatient Admission and Anticipated Discharge Date Admission Date: October 12, 2019 Anticipated date of discharge: 10/14/19 Subjective Patient reports generalized fatigue after influenza illness. No recurrent fever or chills. Since starting IV fluids he feels a dramatic improvement in his fatigue and appetite and notes he likely wasn't drinking enough at home. His is currently not at home and he has been struggling to keep up with his oral intake. He reports having a previous murmur with an echo but unsure of any prior valvular disease but notes murmurs run in his family -> although none have had valvular replacements as far as he is aware. Chronic smoker although reports having only a few cigarettes through this illness. Review of Systems Review of Systems: All systems reviewed & are unremarkable except as noted in HPI & below Physical Exam Constitutional: well developed; no acute distress Eyes: + anicteric sclerae; normal pupil size ENMT: Mouth: oral mucous membranes not dry Neck: normal visual inspection and trachea midline Respiratory: normal respiratory effort Auscultation: + crackles (mild bibasal); no wheezes Cardiovascular: Rate/Rhythm: regular rate Heart Sounds: + murmur (loudest at apex, systolic); + abnormal S1 and + abnormal S2 Extremities: no edema Gastrointestinal (Abdomen): normal bowel sounds, soft, nontender, no hepatosplenomegaly Musculoskeletal: no cyanosis or clubbing, extremities motor strength 5/5 Extremities: no cyanosis and no clubbing Skin: no rashes, warm and dry Neurologic: moves all extremities and awake; no focal motor deficits and not confused Speech / Cognition: normal speech Motor/Sensory: no tremor and no pronator drift Psychiatric: A+Ox3, euthymic affect Genitourinary: no CVA tenderness Lymphatic: no cervical or axillary lymphadenopathy Results & Data ([facility]) Vital Signs (Past 12 Hours) Vital Signs Temp Pulse Pulse Resp BP Pulse Ox 10/13/19 19:59 36.9 C 58 L 18 149/70 H 98 10/13/19 16:39 67 10/13/19 14:42 36.6 C 61 18 164/75 H 98 10/13/19 12:04 36.6 C 65 16 168/73 H 98 PG Care Time/CCT Total # of Minutes Spent Total Time Spent with Patient: Total time spent is greater than 50% in coordination of care (as documented) at patient's floor/unit and/or counseling patient: Coding Level of Care Code 09293 Subseq Hosp Care Lvl 3 Diagnoses Uremic encephalopathy G93.41; N19 KAMRYN (acute kidney injury) N17.9 Hyperchloremic metabolic acidosis E87.2 Generalized weakness R53.1 Elevated troponin R79.89 Hypertension I10 Hypertension type: essential hypertension Hyperlipidemia E78.2 Hyperlipidemia type: mixed hyperlipidemia Hidradenitis suppurativa L73.2 Chronic gout M1A.09X0 Gout etiology: idiopathic Gout site: multiple sites Presence of tophus: without tophus Tobacco abuse Z72.0 Pre-diabetes R73.03 Mitral regurgitation and mitral stenosis I34.2; I34.0 Cardiac valve disease etiology: nonrheumatic DVT prophylaxis Z29.9 (1) Hyperlipidemia Hyperlipidemia type: mixed hyperlipidemia Qualified Code(s): E78.2 - Mixed hyperlipidemia (2) Mitral regurgitation and mitral stenosis Cardiac valve disease etiology: nonrheumatic Qualified Code(s): I34.2 - Nonrheumatic mitral (valve) stenosis; I34.0 - Nonrheumatic mitral (valve) insufficiency (3) Chronic gout Gout etiology: idiopathic Gout site: multiple sites Presence of tophus: without tophus Qualified Code(s): M1A.09X0 - Idiopathic chronic gout, multiple sites, without tophus (tophi) (4) Hypertension Hypertension type: essential hypertension Qualified Code(s): I10 - Essential (primary) hypertension
[2019-10-14] MEDS: HEPARIN SOD 5,000 UNIT/0.5 ML VIAL SQ SCH ×2 (00:53→05:26)
[2019-10-14] MEDS: allopurinoL 300 MG TAB PO SCH (00:54)
[2019-10-14] MEDS: SIMVASTATIN 80 MG TAB PO SCH (00:54)
[2019-10-14 04:55] VITALS: TEMP 97.7
[2019-10-14 06:33] LABS: Hematocrit (blood only) 34.8 % (42-52); Hemoglobin 11.8 g/dL (14.0-18.0); Mean Corpuscular Hemoglobin 31.8 pg (25-34); Mean Corpuscular Hgb Conc 33.9 g/dL (32-36); Mean Corpuscular Volume 93.8 fL (80-100); Mean Platelet Volume 9.8 fL (7.4-10.4); Platelet Count 205 K/uL (130-400); RDW Standard Deviation 54.8 fL (36.4-46.3); Red Blood Count 3.71 M/uL (4.7-6.1); White Blood Count 6.41 K/uL (4.8-10.8)
[2019-10-14 07:10] LABS: Albumin Level 2.8 gm/dl (3.4-5.0); BUN Creatinine Ratio 20.3 (10-20); Calcium 8.6 mg/dl (8.5-10.1); Creatinine Clr Calc Pharmacy 46.9 ml/min; Est GFR (African American) 41.1; Est GFR (Non-African American) 35.5
[2019-10-14 07:12] LABS: Albumin Globulin Ratio 0.8 (0.9-2); Bilirubin,Total 0.8 mg/dl (0.2-1); Globulin 3.7 gm/dl (2.5-4.0); Total Protein 6.5 gm/dl (6.4-8.2)
[2019-10-14 07:28] VITALS: BP 127/71
[2019-10-14] MEDS: ASPIRIN 81 MG ECTAB PO SCH (08:23)
[2019-10-14] MEDS: ATENOLOL 25 MG TABLET PO SCH (08:23)
--- NOTE | 2019-10-14 10:36 | Nephrology Progress Note ---
Date of Service October 14, 2019 Assessment & Plan (1) KAMRYN (acute kidney injury): - Creatinine stable at 2.0 mg/dL - I discussed the plan of care with Dr. Lara this morning - Stable for discharge from a nephrology standpoint, outpatient follow up will be arranged in the clinic - Recheck a metabolic profile within 1 week - BP and volume status are acceptable - Mild NAGMA associated with KAMRYN and NSS - Continue to hold Lisinopril - Volume status euvolemic - Non-oliguric - KAMRYN attributed to volume depletion and EL coupled with recent infection - UA + protein, acellular microscopy - CT did not demonstrate any evidence of obstruction - Electrolytes are normal - In anticipation of outpatient follow up, nephrology will sign-off inpatient coverage. Please call with any additional questions or concerns. (2) Hypertension: - Continue to hold EL for now Subjective No acute events overnight. Feels well this morning. Hopes to be discharged home today. No fevers or chills. No lightheadedness, dizziness, syncope or presyncope. Denies any urinary complaints. Review of Systems Review of Systems: All systems reviewed & are unremarkable except as noted in HPI & below Physical Exam Constitutional: well developed; no acute distress Eyes: no scleral abnormality and no corneal abnormality ENMT: Mouth: no oral mucosal abnormality and oral mucous membranes not dry Neck: normal visual inspection and trachea midline Respiratory: normal respiratory effort Auscultation: lungs clear to auscultation bilaterally Cardiovascular: Rate/Rhythm: regular rate Heart Sounds: normal S1 and normal S2 Extremities: no edema Musculoskeletal: Extremities: no cyanosis and no clubbing Skin: normal turgor; no lesions Neurologic: Motor/Sensory: no tremor and no asterixis Psychiatric: Orientation: alert and oriented x 3 Results & Data Vital Signs (Past 12 Hours) Vital Signs Temp Pulse Pulse Resp BP BP Pulse Ox 10/14/19 07:28 36.5 C 58 L 20 127/71 97 10/14/19 07:20 60 10/14/19 03:36 36.5 C 71 21 138/77 97 10/14/19 00:59 162/74 H 10/14/19 00:06 36.7 C 70 17 171/76 H 97 10/14/19 00:00 68 Laboratory Results Laboratory Results - last 24 hr 10/14/19 10/14/19 06:09 06:09 WBC 6.41 RBC 3.71 L Hgb 11.8 L Hct 34.8 L MCV 93.8 MCH 31.8 MCHC 33.9 RDW Std Deviation 54.8 H RDW Coeff of Katelin 16.0 H Plt Count 205 MPV 9.8 Sodium 140 Potassium 4.0 Chloride 114 H Carbon Dioxide 23 Anion Gap 3.0 BUN 41 H Creatinine 2.00 H Est Cr Clr Drug Dosing 46.9 Est GFR ( Amer) 41.1 Est GFR (Non-Af Amer) 35.5 BUN/Creatinine Ratio 20.3 H Glucose 83 Calcium 8.6 Total Bilirubin 0.8 AST 33 ALT 38 Alkaline Phosphatase 60 Total Protein 6.5 Albumin 2.8 L Globulin 3.7 Albumin/Globulin Ratio 0.8 L PG Care Time/CCT Total # of Minutes Spent Total Time Spent with Patient: Total time spent is greater than 50% in coordination of care (as documented) at patient's floor/unit and/or counseling patient: Coding Level of Care Code 19430 Subseq Hosp Care Lvl 3 Diagnoses KAMRYN (acute kidney injury) N17.9 Hypertension I10
--- NOTE | 2019-10-14 11:24 | Discharge Summary ---
Date of Service October 14, 2019 Admission HPI Per Admitting Provider This is a 59 yo M with PMHx of HTN, HLD, impaired fasting glucose, moderate aortic and mitral regurg, hidradentis suppurativa, anxiety, chronic gout, chronic smoker with 3/4 ppd, who presents from PCP office for elevated BUN, Creatinine, Trop, and BNP. The patient recently was positive for influenza A, but upon going to his PCP ~ 3 wks ago, was outside of the treatment range for Tamiflu. Yesterday he had a follow-up appointment at his PCP for recheck of labs for worsening overall fatigue as part of a vitamin deficiency workup. Previously he had been vitamin D deficient and had taken high levels of this x10 days. He admits to poor appetite with intermittent nausea within the last week. He has not been taking his medications very routinely, but thinks that he did take lisinopril and baby aspirin the last 2 days. In regards to elevated troponin of 0.6 at time of admission, patient denies any chest pain, shortness of breath, exertional dyspnea, radiation of pain down the arm or up into the jaw. He also smokes routinely a 3/4 ppd however has not felt up to smoking cigarettes at all recently, and think he might have smoked a total 1/2 pack cigarettes within the past week. He does admit to having some intermittent lightheadedness whenever he would stand up abruptly within the past week. He has not ever required any supplemental oxygen. His daughter is at bedside and supports the history. Principal Diagnosis Acute kidney injury Demand ischemia (elevated troponin) Moderate-severe mitral regurgitation, moderate mitral stenosis Discharge Exam Constitutional well developed; no acute distress Eyes + anicteric sclerae; normal pupil size ENMT Mouth: oral mucous membranes not dry Neck normal visual inspection and trachea midline Respiratory normal respiratory effort Auscultation: no crackles and no wheezes Cardiovascular Rate/Rhythm: regular rate Heart Sounds: + murmur (loudest at apex, systolic); + abnormal S1 and + abnormal S2 Extremities: no edema Gastrointestinal (Abdomen) normal bowel sounds, soft, nontender, no hepatosplenomegaly Musculoskeletal no cyanosis or clubbing, extremities motor strength 5/5 Extremities: no cyanosis and no clubbing Skin no rashes, warm and dry Neurologic moves all extremities and awake; not confused Psychiatric A+Ox3, euthymic affect Genitourinary no CVA tenderness Discharge Data Allergies Allergy/AdvReac Type Severity Reaction Status Date / Time No Known Drug Allergies Allergy Verified 10/12/19 12:11 Consultations 10/12/19 14:28 ED Decision to Admit Stat 10/12/19 16:44 Consult Case Management - Discharge Planning Routine Consult Nephrology Routine Ordered Studies 10/12/19 11:39 CT abd pelvis wo con IMPRESSION: 1. Extensive nodular infiltrates at the lung bases concerning for infectious bronchiolitis or bronchopneumonia versus aspiration. Less likely etiologies include metastatic disease and sarcoidosis. 2. Allowing for noncontrast technique, no acute intra-abdominal pathology. 3. No hydronephrosis or nephrolithiasis. No significant renal pathology. Hospital Course (1) Uremic encephalopathy: Carly Yee is a 59 year old male were admitted to [facility] from October 11 to 2019 due to elevated creatinine on outpatient labs suggestive of acute kidney injury. He was diagnosed with KAMRYN and responded well to IV fluids. Suspected pre-renal secondary to dehydration after having influenza in setting of lisinopril use. Lisinopril discontinued and stable BP there no additional anti-hypertensives started. BMP ordered for 1 week with labs result to his PCP. He was reviewed by nephrology and creatinine improved from 2.43 to 2.00. He was eating and drinking well therefore appears medically stable for discharge at this time as discussed with Dr Peralta. BUn improved from 68 to 41 with subsequent improvement in appetite and generalized fatigue (although clearly not yet back to his baseline). No post renal cause of KAMRYN on CT. Echocardiogram ordered due to murmur on exam and mild bibasal crackles concerning for heart failure. No cardiomyopathy noted but he was diagnosed with moderate-severe mitral regurgitation and moderate mitral stenosis, which I suspect if more chronic. Recommend referral to cardiology from PCP to monitor this. Kind regards, Dr Rosalio Lara. (2) KAMRYN (acute kidney injury): (3) Hyperchloremic metabolic acidosis: (4) Generalized weakness: (5) Elevated troponin: (6) Hypertension: (7) Hyperlipidemia: (8) Hidradenitis suppurativa: (9) Chronic gout: (10) Tobacco abuse: (11) Pre-diabetes: (12) Mitral regurgitation and mitral stenosis: Total Time Total Time Spent Total Time Spent (In Minutes): 35 Total Time Includes: Examination of the Patient, Discharge Planning, Medication Reconciliation and Communication With Other Providers (Dr Peralta) Discharge Plan Discharge Items Patient Disposition: Home - Self-Care Reason For Visit: ELEVATED TROPONIN AND BNP,ACUTE KIDNEY INJURY Discharge Diagnosis: Acute kidney injury Demand ischemia Moderate-severe mitral regurgitation, moderate mitral stenosis Condition on Discharge: Fair Activity: Resume your previous activity Non-emergency contact: Primary Care Provider Call non-emergency contact if: you have any medication questions Follow-up/Referrals: Patience Hughes CRNP [Primary Care Provider] - 10/18/19 9:30 am Kei Peralta DO [Physician] - 10/26/19 11:20 am (in approximately 2-4 weeks) Diet: Regular Ambulatory Orders: Basic Metabolic Panel (Routine) Timeframe: 1 Week Location: Determined by Patient Ordered By: Rosalio Noonan Attending Provider Instructions: You were admitted to [facility] from October 11 to 2019 due to acute kidney injury. This occurred likely as a result of dehydration after h aving influenza. This improved with IV fluids. Lisinopril stopped as this can make your renal function worse. Given blood pressures while admitted to additional antihypertensive is required at this time, but you should follow up with your primary care physician to monitor this. Please continue to keep well hydrated at home with repeat lab tests in approximately 1 week and follow up with your primary care physician. In addition you had an echocardiogram due to murmur heard on exam. This showed Moderate-severe mitral regurgitation (leaking valve) and moderate mitral stenosis (valve not opening fully). Recommend referral to cardiology as an outpatient for monitoring of this. Kind regards, Dr Rosalio Lara. Pending Studies at Discharge: No Stand-Alone Forms: [facility], Smoking Cessation Medications and DC Order Prescriptions: Continued hydrocodone-acetaminophen 5-325 mg tablet 1 tab PO Q6H PRN (Reason: pain) Qty: 15 RF: 0 potassium gluconate 2.5 mEq Tablet 2.5 meq PO QPM RF: 0 aspirin 81 mg Tablet,Delayed Release (Dr/Ec) 81 mg PO QAM RF: 0 simvastatin 80 mg tablet 80 mg PO QPM RF: 0 lorazepam 0.5 mg tablet 0.5 mg PO HS PRN (Reason: Anxiety) RF: 0 allopurinol 300 mg tablet 300 mg PO QPM RF: 0 atenolol 50 mg tablet 75 mg PO QAM RF: 0 Discontinued lisinopril 40 mg tablet 40 mg PO DAILY RF: 0 Discharge Orders: Discharge Order (Routine); Ordered 10/14/19 Ordered By: Rosalio Minor/Other Patient Handouts: Acute Kidney Injury Dc, A1C Admission Data Admit Date/Time: 10/12/19 14:53 Attending Provider: Rosalio Lara Admit Provider: Cydnee Coughlin Primary Care Provider: Patience Hughes Other Providers: Niyah Mendez ; Rosalio Lara Other Interventions: Discharge Summary Assessment (RN) Last Done: 10/14/19 12:41 DC Date/Time DO NOT enter until pt leaves facility: 10/14/19 14:23 Coding Level of Care Code D/C Day Management >30 mins Diagnoses Uremic encephalopathy G93.41; N19 KAMRYN (acute kidney injury) N17.9 Hyperchloremic metabolic acidosis E87.2 Generalized weakness R53.1 Elevated troponin R79.89 Hypertension I10 Hyperlipidemia E78.2 Hyperlipidemia type: mixed hyperlipidemia Hidradenitis suppurativa L73.2 Chronic gout M1A.09X0 Gout etiology: idiopathic Gout site: multiple sites Presence of tophus: without tophus Tobacco abuse Z72.0 Pre-diabetes R73.03 Mitral regurgitation and mitral stenosis I34.2; I34.0 Cardiac valve disease etiology: nonrheumatic
[2019-10-14 12:42] VITALS: PULSE 68; O2SAT 97
== END 2019-10-14 14:23 | disposition home or self-care (01) | DRG 683 ==
LOC: ED 10:56 → INTOOBSV 14:53 → SUATTDRO 14:53 → 2N 14:53

== ENCOUNTER 2021-08-13 12:56 | Observation (INO) ==
[2021-08-13 13:39] LABS: Basophils # (auto) 0.05 K/uL (0-0.2); Basophils % (auto) 0.4 %; Eosinophils # (auto) 0.23 K/uL (0-0.5); Eosinophils % (auto) 1.7 %; Hematocrit (blood only) 36.9 % (42-52); Hemoglobin 12.3 g/dL (14.0-18.0); Immature Granulocytes # (auto) 0.13 K/uL (0.00-0.02); Lymphocytes # (auto) 1.09 K/uL (1.2-3.4); Lymphocytes % (auto) 8.3 %; Mean Corpuscular Hemoglobin 30.5 pg (25-34); Mean Corpuscular Hgb Conc 33.3 g/dL (32-36); Mean Corpuscular Volume 91.6 fL (80-100); Monocytes # (auto) 0.96 K/uL (0.11-0.59); Monocytes % (auto) 7.3 %; Neutrophils % (auto) 81.3 %; Platelet Count 344 K/uL (130-400); RDW Coefficient of Variation 14.1 % (11.5-14.5); RDW Standard Deviation 47.2 fL (36.4-46.3); Red Blood Count 4.03 M/uL (4.7-6.1); White Blood Count 13.16 K/uL (4.8-10.8)
[2021-08-13 13:50] LABS: INR 1.2 (0.9-1.1); Partial Thromboplastin Time 26.4 Seconds (21.0-31.0); Prothrombin Time 11.7 Seconds (9.0-12.0)
[2021-08-13 14:03] LABS: Alanine Aminotransferase 20 (12-78); Albumin Level 2.8 gm/dl (3.4-5.0); Aspartate Aminotransferase 13 U/L (15-37); BUN Creatinine Ratio 14.3 (10-20); Blood Urea Nitrogen 26 mg/dl (7-18); Calcium 9.2 mg/dl (8.5-10.1); Carbon Dioxide 23 mmol/L (21-32); Chloride 106 mmol/L (98-107); Est GFR (African American) 45.4 ml/min; Est GFR (Non-African American) 39.2 ml/min; Glucose 98 mg/dl (70-99); Potassium 4.4 mmol/L (3.5-5.1); Sodium 135 mmol/L (136-145)
[2021-08-13 14:05] LABS: Albumin Globulin Ratio 0.6 (0.9-2); Alkaline Phosphatase 91 U/L (45-117); Bilirubin,Total 0.5 mg/dl (0.2-1); Globulin 4.4 gm/dl (2.5-4.0); Total Protein 7.2 gm/dl (6.4-8.2)
--- NOTE | 2021-08-13 14:35 | Emergency Department Note ---
History of Present Illness General Chief complaint: Tachycardia Stated complaint: RAPID AFIB WITH RVR Time Seen by Provider: 08/13/21 14:26 Source: patient Mode of arrival: ambulatory Limitations: no limitations History of Present Illness Provider complaint: dysrhythmia This is a 61-year-old male presents the emergency department complaining of rapid heart rate. Patient was scheduled to have an EGD performed today, however during his intake with anesthesia he was noted to be tachycardic. Anesthesia spoke with the GI specialist who was scheduled to do the procedure who then contacted his biomedical analytical scientist and he was referred to the emergency room. Patient states he saw cardiology as part of his preop evaluations 2 weeks ago following an episode of atypical chest discomfort and was found to have new onset atrial fibrillation. Patient states he was started on metoprolol and Eliquis. He states he had a follow-up visit 2 days ago and was then found to have atrial flutter. He states his medications were increased. He states his last dose was Eliquis was on Tuesday as he needed to stop it in order to have the procedure done. Patient states he has been following with Dr. Brown previously due to a heart valve problem. He states he has previously had an echo. No prior history of dysrhythmia until 2 weeks ago. Patient denies fevers, chills, black or bloody stools. Patient states he has noticed increased dyspnea and palpitations with exertion as well as mild lightheadedness. No symptoms at rest. Patient denies any other recent medication changes. Pt seen during a time of high acuity and national emergency pandemic while wearing PPE. Home Medications Medication Instructions Recorded Confirmed Type potassium gluconate 2.5 mEq tablet 2.5 meq PO QPM 10/12/19 08/13/21 History cholecalciferol (vitamin D3) 125 5,000 units PO QAM 10/18/19 08/13/21 History mcg (5,000 unit) disintegrating tablet omeprazole 20 mg capsule,delayed 20 mg PO BID #60 cap 08/03/21 08/13/21 Rx release allopurinol 300 mg tablet 150 mg PO .COMPLEX tab 08/06/21 08/13/21 History atorvastatin 40 mg tablet 40 mg PO .COMPLEX tab 08/06/21 08/13/21 History apixaban 5 mg tablet (Eliquis) 5 mg PO BID 08/07/21 08/13/21 History cyanocobalamin (vitamin B-12) 1,000 mcg PO PM 08/07/21 08/13/21 History 1,000 mcg tablet metoprolol succinate 100 mg 150 mg PO BID #270 tab 08/12/21 08/13/21 Rx tablet,extended release 24 hr Allergies Allergy/AdvReac Type Severity Reaction Status Date / Time No Known Drug Allergies Allergy Verified 08/13/21 15:07 Past Med/Surg History Medical History Anxiety no meds at present > controlled Aortic valve sclerosis Atrial fibrillation dx 08/06/21 > started on Eliquis and metoprolol yesterday with Dr. Brown > no cardioversions Chronic gout CKD (chronic kidney disease) follows with Dr. Fabian Monroy GERD (gastroesophageal reflux disease) questionable? Hyperlipidemia Hypertension Leaky heart valve just monitoring Tobacco abuse Vitamin D deficiency Surgical History History of colonoscopy History of tooth extraction Family History Father Heart disease Mother Leukemia Denies family history of Ovarian cancer Prostate cancer Myocardial infarction Breast cancer Colorectal cancer Stroke Social History Smoking Status: Never smoker packs per day: 1; Years Smoked: 30; Cigarettes Per Day: 15 cigs per day; Second Hand Exposure: No; Hx Alcohol Use: No Hx Substance Use: No Preferred Language: Italian Communication Ability: Effective Puller Through Required: No Beliefs That Will Affect Care: None marital status: Current Living Situation: Spouse current occupational status: employed current occupation: self employed How many Children do You have: 1 Feels Safe at Home: Yes Childhood Exposure to Second-Hand Smoke: Yes caffeine: Yes Dental Care, Regularly: Yes Physical Activity Frequency: Daily Seatbelt Use: always Sunscreen Use: No Assistive Devices: Glasses Review of Systems A total of 10 systems reviewed and were otherwise negative All systems reviewed & are unremarkable except as noted in HPI & below Physical Exam Vital Signs Vital Signs - 24 hr 08/13/21 13:06 08/13/21 13:20 Temperature 36.6 C Temperature Source Temporal Artery Scan Pulse Rate 104 H Respiratory Rate 20 Respiratory Effort / Characteristics Non-Labored Spontaneous Respiratory Depth Normal Respiratory Pattern Regular Blood Pressure 184/74 H Blood Pressure Mean 110 Blood Pressure Position Sitting Pulse Oximetry 98 97 Oxygen Delivery Method Room Air Room Air Sepsis Recent Fever Within 48 Hours No Sepsis New/Unexplained Change in Mental Status No Sepsis Action Taken by Nursing No Action Required GENERAL: alert, well appearing, well nourished, no distress, non-toxic EYE EXAM: normal conjunctiva, PERRL and EOM's grossly intact OROPHARYNX: no exudate, no erythema, lips, buccal mucosa, and tongue normal and mucous membranes are moist NECK: supple, no nuchal rigidity, no adenopathy, non-tender LUNGS: Clear to auscultation. Normal chest wall mechanics, no w/r/r HEART: no murmurs, S1 normal and S2 normal ABDOMEN: abdomen soft, non-tender, normo-active bowel sounds, no masses, no rebound or guarding. BACK: Back is symmetrical on inspection and there is no deformity, no midline tenderness, no CVA tenderness. SKIN: no rashes and no bruising UPPER EXTREMITIES: upper extremities are grossly normal. FROM, nml pulses b/l. LOWER EXTREMITIES: No pitting edema. FROM, nml pulses b/l. NEURO EXAM: Normal sensorium, cranial nerves II-XII grossly intact, normal speech, no gross weakness of arms, no gross weakness of legs. Gross sensation intact. Course Course 1457: Discussed with Dr. Bishop, [facility] cardiology. Administered Medications Diltiazem HCl 125 mg/ Dextrose 125 mls @ 5 mls/hr IV .Q24H [facility]; Protocol Stop: 09/12/21 15:59 Last Admin: 08/13/21 16:29 Dose: 5 mg/hr, 5 mls/hr Documented by: [id number] Cosigned by: [id number] Medical Decision Making Differential Diagnosis Differential diagnosis includes etiologies such as premature contractions, electrolyte abnormality, cardiac dysrhythmia, thyroid dysfunction, pulmonary embolism, infection, gastrointestinal, as well as others were entertained. Medical Records Attestation: I reviewed the patient's medical records. Home Medications Current Medication List: was personally reviewed by me Laboratory Data Attestation: I reviewed the patient's lab results. Result diagrams: 08/13/21 13:31 08/13/21 13:31 Lab Results 08/13/21 08/13/21 08/13/21 Range/Units 13:31 13:31 13:31 WBC 13.16 H (4.8-10.8) K/uL RBC 4.03 L (4.7-6.1) M/uL Hgb 12.3 L (14.0-18.0) g/dL Hct 36.9 L (42-52) % MCV 91.6 (80-100) fL MCH 30.5 (25-34) pg MCHC 33.3 (32-36) g/dL RDW Std Deviation 47.2 H (36.4-46.3) fL RDW Coeff of Katelin 14.1 (11.5-14.5) % Plt Count 344 (130-400) K/uL MPV 9.0 (7.4-10.4) fL Immature Gran % (Auto) 1.0 % Neut % (Auto) 81.3 % Lymph % (Auto) 8.3 % [place] % (Auto) 7.3 % Eos % (Auto) 1.7 % Baso % (Auto) 0.4 % Neut # (Auto) 10.70 H (1.4-6.5) K/uL Lymph # (Auto) 1.09 L (1.2-3.4) K/uL [place] # (Auto) 0.96 H (0.11-0.59) K/uL Eos # (Auto) 0.23 (0-0.5) K/uL Baso # (Auto) 0.05 (0-0.2) K/uL Immature Gran # (Auto) 0.13 H (0.00-0.02) K/uL PT 11.7 (9.0-12.0) Seconds INR 1.2 H (0.9-1.1) APTT 26.4 (21.0-31.0) Seconds PTT Ratio 1.0 Sodium 135 L (136-145) mmol/L Potassium 4.4 (3.5-5.1) mmol/L Chloride 106 (98-107) mmol/L Carbon Dioxide 23 (21-32) mmol/L Anion Gap 6.0 (3-11) BUN 26 H (7-18) mg/dl Creatinine 1.82 H (0.6-1.4) mg/dl Est Cr Clr Drug Dosing Not Reportable Est GFR ( Amer) 45.4 ml/min Est GFR (Non-Af Amer) 39.2 ml/min BUN/Creatinine Ratio 14.3 (10-20) Glucose 98 (70-99) mg/dl Calcium 9.2 (8.5-10.1) mg/dl Total Bilirubin 0.5 (0.2-1) mg/dl AST 13 L (15-37) U/L ALT 20 (12-78) Alkaline Phosphatase 91 (45-117) U/L Troponin I (0-0.045) ng/ml Total Protein 7.2 (6.4-8.2) gm/dl Albumin 2.8 L (3.4-5.0) gm/dl Globulin 4.4 H (2.5-4.0) gm/dl Albumin/Globulin Ratio 0.6 L (0.9-2) 08/13/21 Range/Units 13:31 WBC (4.8-10.8) K/uL RBC (4.7-6.1) M/uL Hgb (14.0-18.0) g/dL Hct (42-52) % MCV (80-100) fL MCH (25-34) pg MCHC (32-36) g/dL RDW Std Deviation (36.4-46.3) fL RDW Coeff of Katelin (11.5-14.5) % Plt Count (130-400) K/uL MPV (7.4-10.4) fL Immature Gran % (Auto) % Neut % (Auto) % Lymph % (Auto) % [place] % (Auto) % Eos % (Auto) % Baso % (Auto) % Neut # (Auto) (1.4-6.5) K/uL Lymph # (Auto) (1.2-3.4) K/uL [place] # (Auto) (0.11-0.59) K/uL Eos # (Auto) (0-0.5) K/uL Baso # (Auto) (0-0.2) K/uL Immature Gran # (Auto) (0.00-0.02) K/uL PT (9.0-12.0) Seconds INR (0.9-1.1) APTT (21.0-31.0) Seconds PTT Ratio Sodium (136-145) mmol/L Potassium (3.5-5.1) mmol/L Chloride (98-107) mmol/L Carbon Dioxide (21-32) mmol/L Anion Gap (3-11) BUN (7-18) mg/dl Creatinine (0.6-1.4) mg/dl Est Cr Clr Drug Dosing Est GFR ( Amer) ml/min Est GFR (Non-Af Amer) ml/min BUN/Creatinine Ratio (10-20) Glucose (70-99) mg/dl Calcium (8.5-10.1) mg/dl Total Bilirubin (0.2-1) mg/dl AST (15-37) U/L ALT (12-78) Alkaline Phosphatase (45-117) U/L Troponin I < 0.015 (0-0.045) ng/ml Total Protein (6.4-8.2) gm/dl Albumin (3.4-5.0) gm/dl Globulin (2.5-4.0) gm/dl Albumin/Globulin Ratio (0.9-2) Imaging Data Radiologist's Impression: Chest X-Ray 08/13/21 00:00 XR chest 1V portable HISTORY: Atrial fibrillation. Tachycardia. COMPARISON: Chest 10/12/2019. FINDINGS: The heart is enlarged. There is mild diffuse interstitial thickening, unchanged. This favors mild central pulmonary vascular congestion without overt edema. No pneumothorax. No pleural effusions. No focal lung consolidations to suggest pneumonia. IMPRESSION: Cardiomegaly with mild central pulmonary vascular congestion without overt edema. ACT 112: Negative or not required by law. Electronically signed by: Tyrone Fortune M.D. 08/13/2021 3:05 PM ECG Data Attestation: I personally reviewed and interpreted this ECG as follows: Indication: + tachycardia Rate (beats per minute): 102 Rhythm: + atrial flutter ECG Intervals/blocks: + Normal QRS and + Normal QT ECG [place]: + Normal ECG ST segments: + Nonspecific ST abnormalities MDM Narrative This is a 61-year-old male who presents after being referred by the GI specialist scheduled to do his EGD today and cardiology. Patient does follow with cardiology and recently found to have atrial fibrillation which is a new diagnosis. Patient referred due to ongoing tachycardia despite recent increase in his medications by his biomedical analytical scientist as an outpatient. Patient does admit symptoms with exertion however not at rest. Patient found to have atrial flutter with a rapid ventricular response on EKG here. I did review patient's recent evaluation I did contact [facility] any cardiology who advised additional inpatient monitoring and evaluation. Patient was otherwise hemodynamically stable and afebrile. Covid swab 48 hours ago was part of his preop testing was negative. I did discuss with him possible need for additional inpatient medication management and monitoring as well as possible need for repeat echo given his prior history. Patient verbalized understanding of this and was in agreement with plan. Case discussed with hospitalist team. Patient's creatinine appears stable compared to prior. An order was placed for continuous cardiac monitoring. The monitor shows a rate of _106_ with _atrial flutter_ rhythm. Impression & Plan Tachycardia, CKD (chronic kidney disease), Atrial flutter, Dyspnea on exertion, Failure of outpatient treatment Discharge Plan Visit Data Chief Complaint: Tachycardia Stated Complaint: RAPID AFIB WITH RVR ED Provider: Citlali Cole Discharge Problem: Tachycardia, CKD (chronic kidney disease), Atrial flutter, Dyspnea on exertion, Failure of outpatient treatment Patient Disposition: Being Evaluated by Hospitalist Condition: Fair Forms Stand Alone Forms: My [facility] Learn with [place] Prescriptions Prescriptions: No Action omeprazole 20 mg capsule,delayed release(DR/EC) 20 mg PO BID Qty: 60 RF: 5 metoprolol succinate 100 mg tablet extended release 24 hr 150 mg PO BID Qty: 270 RF: 3 allopurinol 300 mg tablet 150 mg PO .COMPLEX RF: 0 atorvastatin 40 mg tablet 40 mg PO .COMPLEX RF: 0 cholecalciferol (vitamin D3) 5,000 unit tablet,disintegrating 5,000 units PO QAM RF: 0 potassium gluconate 2.5 mEq Tablet 2.5 meq PO QPM RF: 0 cyanocobalamin (vitamin B-12) 1,000 mcg Tablet 1,000 mcg PO PM RF: 0 Eliquis 5 mg Tablet 5 mg PO BID RF: 0 Referrals Referrals: Patience Hughes CRNP [Primary Care Provider] - Discharge Problem: CKD (chronic kidney disease) Qualifiers: Chronic kidney disease stage: unspecified stage Qualified Code(s): N18.9 - Chronic kidney disease, unspecified Atrial flutter Qualifiers: Atrial flutter type: unspecified Qualified Code(s): I48.92 - Unspecified atrial flutter
[2021-08-13 15:01] LABS: Troponin I < 0.015 ng/ml (0-0.045)
--- NOTE | 2021-08-13 15:06 | XRay Report ---
XR chest 1V portable HISTORY: Atrial fibrillation. Tachycardia. COMPARISON: Chest 10/12/2019. FINDINGS: The heart is enlarged. There is mild diffuse interstitial thickening, unchanged. This favor s mild central pulmonary vascular congestion without overt edema. No pneumothorax. No pleural effusio ns. No focal lung consolidations to suggest pneumonia. IMPRESSION: Cardiomegaly with mild central pulmonary vascular congestion without overt edema. ACT 112: Negative or not required by law. Electronically signed by: Tyrone Fortune M.D. 08/13/2021 3:05 PM
[2021-08-13] MEDS ORDERED: STAT IV Infusion **Titration per Protocol STA (15:47)
[2021-08-13] MEDS ORDERED: dilTIAZem HCL 125 MG in DEXTROSE 5% 100 ML IV SCH ×2 (16:00→21:23)
[2021-08-13] MEDS ORDERED: Heparin IV Adult Wt-Based Low-Dose *NO* Bolus Protocol IV SCH (16:02)
--- NOTE | 2021-08-13 16:04 | History & Physical Report ---
Date of Service August 13, 2021 Assessment & Plan (1) Atrial flutter with rapid ventricular response: (2) Paroxysmal atrial fibrillation with rapid ventricular response: (3) Moderate to severe mitral regurgitation: (4) Moderate mitral stenosis: (5) Mild aortic stenosis: (6) Mild aortic insufficiency: Plan: Mr. Yee is a 61-year-old male with a history of GERD, Anxiety, Tobacco Abuse, Hypertension, Hyperlipidemia, Obesity, CKD, Gout, and Valvular Heart Dis ease (Moderate to Severe IA, Moderate MS, Mild ,Mild AI) who was diagnosed with Paroxysmal Atrial Fibrillation with RVR on 08/06/[address] Brown office complaining of exertional dyspnea over the preceding 3 or 4 weeks. Patient was started on Toprol XL 100 mg b.i.d. and Eliquis 5 mg b.i.d.. He met with Dr. Brown in follow-up on 08/11/21 at which time an EKG showed A-Flutter at 105 bpm with variable AV conduction. Patient's Toprol XL was increased to 150 mg b.i.d., and he was maintained on Eliquis 5 mg b.i.d.. The patient was actually scheduled for an EGD today and he has not taken any Eliquis in the past 48 hours. When he was evaluated by Anesthesia he was noted to be tachycardic, particularly after walking with his ventricular response rate increasing into the 120s and 130s. EGD was canceled and he was referred to the emergency room. EGD was scheduled by his PCP for an anemia and intermittent upper abdomen and lower chest discomfort. Patient continues to complain of exertional dyspnea whenever he climbs up stairs, or if he walks up a grade. His exertional tolerance has decreased since being in atrial fibrillation/atrial flutter. Patient has not experienced any angina pectoris or anginal type discomfort, nor has he had any symptoms suggestive of stroke or mini stroke. His chest x-ray suggest mild central pulmonary vascular congestion without evidence of overt pulmonary edema and his proBNP is elevated -- most likely secondary to tachycardia in the presence of valvular heart disease. His last stool was "perico appearing" but he denies any martina melena or hematochezia. Recommend the following: -- Admit to PCU. -- Continue Toprol XL 150 mg b.i.d.. -- Begin IV Diltiazem drip no bolus, titrate to effect. -- Low dose Heparin drip, no bolus. -- Hold Heparin drip x 2 hours leading up to EGD tomorrow (I discussed this case with Dr. Hollis). -- Continue holding Eliquis until after EGD is completed. Plan going forward will include a transesophageal echocardiogram to further evaluate valvular heart disease. Continue with a rate control/anticoagulation strategy for a minimum of 3-1/2 to 4 weeks, then consider an elective electrical cardioversion if he is still in symptomatic atrial flutter/atrial fibrillation or if rate control is not adequately achieved. (7) Hypertension: Plan: BP is elevated today: -- Continue Toprol XL 150 mg b.i.d.. -- Begin IV Diltiazem drip, convert to oral Diltiazem at discharge. (8) Hyperlipidemia: Plan: -- Continue Atorvastatin 40 mg daily. (9) GERD (gastroesophageal reflux disease): Plan: -- Proceed with EGD tomorrow. -- Continue PPI. (10) Anemia: Plan: -- EGD planned for tomorrow. History of Present Illness Chief Complaint: -- A-Flutter with RVR. -- Recently Diagnosed Paroxysmal Atrial Fibrillation/Flutter. -- Valvular Heart Disease. Primary Care Provider: MADDIE Malone Mr. Yee is a 61-year-old male with a history of GERD, Anxiety, Tobacco Abus e, Hypertension, Hyperlipidemia, Obesity, CKD, Gout, and Valvular Heart Disease (Moderate to Severe IA, Moderate MS, Mild ,Mild AI) who was diagnosed with Paroxysmal Atrial Fibrillation with RVR on 08/06/[address] Brown office complaining of exertional dyspnea over the preceding 3 or 4 weeks. Patient was started on Toprol XL 100 mg b.i.d. and Eliquis 5 mg b.i.d.. He met with Dr. Brown in follow-up on 08/11/21 at which time an EKG showed A- Flutter at 105 bpm with variable AV conduction. Patient's Toprol XL was increased to 150 mg b.i.d., and he was maintained on Eliquis 5 mg b.i.d.. The patient was actually scheduled for an EGD today and he has not taken any Eliquis in the past 48 hours. When he was evaluated by Anesthesia he was noted to be tachycardic, particularly after walking with his ventricular response rate increasing into the 120s and 130s. EGD was canceled and he was referred to the emergency room. EGD was scheduled by his PCP for an anemia and intermittent upper abdomen and lower chest discomfort. Patient continues to complain of exertional dyspnea whenever he climbs up stairs, or if he walks up a grade. His exertional tolerance has decreased since being in atrial fibrillation/atrial flutter. Patient denies any exertional chest pain, heaviness, tightness, pressure, or discomfort. He denies any exertional neck, jaw, back, or arm pain. He denies any shortness of breath at rest, orthopnea, or PND. He denies any peripheral edema or weight gain. Patient occasionally feels a brief palpitation status rare. He has not had any syncope or near syncope. Patient has not had any symptoms suggestive of stroke or mini stroke. His last stool was "perico appearing" but he denies any martina melena or hematochezia. Patient denies any dysuria or hematuria. Allergies Allergy/AdvReac Type Severity Reaction Status Date / Time No Known Drug Allergies Allergy Verified 08/13/21 15:07 Home Medications Medication Instructions Recorded Confirmed Type potassium gluconate 2.5 mEq tablet 2.5 meq PO QPM 10/12/19 08/13/21 History cholecalciferol (vitamin D3) 125 5,000 units PO QAM 10/18/19 08/13/21 History mcg (5,000 unit) disintegrating tablet omeprazole 20 mg capsule,delayed 20 mg PO BID #60 cap 08/03/21 08/13/21 Rx release allopurinol 300 mg tablet 150 mg PO .COMPLEX tab 08/06/21 08/13/21 History atorvastatin 40 mg tablet 40 mg PO .COMPLEX tab 08/06/21 08/13/21 History apixaban 5 mg tablet (Eliquis) 5 mg PO BID 08/07/21 08/13/21 History cyanocobalamin (vitamin B-12) 1,000 mcg PO PM 08/07/21 08/13/21 History 1,000 mcg tablet metoprolol succinate 100 mg 150 mg PO BID #270 tab 08/12/21 08/13/21 Rx tablet,extended release 24 hr Past Med/Surg History Medical History Anxiety no meds at present > controlled Aortic valve sclerosis Atrial fibrillation dx 08/06/21 > started on Eliquis and metoprolol yesterday with Dr. Brown > no cardioversions Chronic gout CKD (chronic kidney disease) follows with Dr. Fabian Monroy GERD (gastroesophageal reflux disease) questionable? Hyperlipidemia Hypertension Leaky heart valve just monitoring Tobacco abuse Vitamin D deficiency Surgical History History of colonoscopy History of tooth extraction Family History Father Heart disease Mother Leukemia Denies family history of Ovarian cancer Prostate cancer Myocardial infarction Breast cancer Colorectal cancer Stroke Social History Smoking Status: Never smoker packs per day: 1; Years Smoked: 30; Cigarettes Per Day: 15 cigs per day; Second Hand Exposure: No; Hx Alcohol Use: No Hx Substance Use: No Preferred Language: Frisian Communication Ability: Effective Toy Consultant Required: No Beliefs That Will Affect Care: None marital status: Current Living Situation: Spouse current occupational status: employed current occupation: self employed How many Children do You have: 1 Feels Safe at Home: Yes Childhood Exposure to Second-Hand Smoke: Yes caffeine: Yes Dental Care, Regularly: Yes Physical Activity Frequency: Daily Seatbelt Use: always Sunscreen Use: No Assistive Devices: Glasses Review of Systems Review of Systems: 10 point ROS was completed, and is negative except for what is mentioned in the HPI. Physical Exam Physical Exam: GENERAL: Patient in no acute distress. HEENT: Head is atraumatic, normocephalic. EOM's intact. Sclerae anicteric. Facies symmetric. No perioral cyanosis. NECK: No JVD. JVP is just above the level of clavicle sitting upright. Carotid upstrokes are + 2 bilaterally. No bruits are noted. CHEST/LUNGS: Clear to auscultation throughout all lung artis. No wheezes, rales, or crackles. CVS: S1 and S2 are slightly irregular, tachycardic at 110 bpm. There is a grade 3/6 crescendo decrescendo basal systolic murmur heard best over the right 2nd intercostal space, grade 2/6 apical holosystolic murmur. No diastolic murmurs appreciated. No diastolic rumbles. No gallops or rubs. PMI is nonpalpable. No lifts, heaves, or thrills. No abdominal aortic or renal bruits. ABDOMINAL EXAM: Bowel sounds are present. No masses, organomegaly, or tenderness. EXTREMITIES: No clubbing or cyanosis. No edema. Intact posterior tibial and radial pulses bilaterally. NEUROLOGIC EXAM: Patient is awake, alert, and oriented. Pleasant and cooperative. Answers questions appropriately. Speech is clear. Normal mo vement in all 4 extremities. Gait pattern was not assessed. EKG 08/13/21: -- Atrial flutter with variable AV block. -- T wave inversions in leads I and aVL, consider lateral ischemia. -- When compared to 08/11/21 tracing; No significant change. Target Worker: -- A-flutter with variable AV conduction, rates ranging between 105-120 bpm. Results & Data Results & Data ([facility]) Vital Signs (Past 12 Hours) Vital Signs Temp Pulse Resp BP Pulse Ox 08/13/21 13:20 97 08/13/21 13:06 36.6 C 104 H 20 184/74 H 98 Laboratory Results Laboratory Results - last 24 hr 08/13/21 08/13/21 08/13/21 13:31 13:31 13:31 WBC 13.16 H RBC 4.03 L Hgb 12.3 L Hct 36.9 L MCV 91.6 MCH 30.5 MCHC 33.3 RDW Std Deviation 47.2 H RDW Coeff of Katelin 14.1 Plt Count 344 MPV 9.0 Immature Gran % (Auto) 1.0 Neut % (Auto) 81.3 Lymph % (Auto) 8.3 Alger % (Auto) 7.3 Eos % (Auto) 1.7 Baso % (Auto) 0.4 Neut # (Auto) 10.70 H Lymph # (Auto) 1.09 L Alger # (Auto) 0.96 H Eos # (Auto) 0.23 Baso # (Auto) 0.05 Immature Gran # (Auto) 0.13 H PT 11.7 INR 1.2 H APTT 26.4 PTT Ratio 1.0 Sodium 135 L Potassium 4.4 Chloride 106 Carbon Dioxide 23 Anion Gap 6.0 BUN 26 H Creatinine 1.82 H Est Cr Clr Drug Dosing Not Reportable Est GFR ( Amer) 45.4 Est GFR (Non-Af Amer) 39.2 BUN/Creatinine Ratio 14.3 Glucose 98 Calcium 9.2 Total Bilirubin 0.5 AST 13 L ALT 20 Alkaline Phosphatase 91 Troponin I Total Protein 7.2 Albumin 2.8 L Globulin 4.4 H Albumin/Globulin Ratio 0.6 L 08/13/21 13:31 WBC RBC Hgb Hct MCV MCH MCHC RDW Std Deviation RDW Coeff of Katelin Plt Count MPV Immature Gran % (Auto) Neut % (Auto) Lymph % (Auto) Alger % (Auto) Eos % (Auto) Baso % (Auto) Neut # (Auto) Lymph # (Auto) Alger # (Auto) Eos # (Auto) Baso # (Auto) Immature Gran # (Auto) PT INR APTT PTT Ratio Sodium Potassium Chloride Carbon Dioxide Anion Gap BUN Creatinine Est Cr Clr Drug Dosing Est GFR ( Amer) Est GFR (Non-Af Amer) BUN/Creatinine Ratio Glucose Calcium Total Bilirubin AST ALT Alkaline Phosphatase Troponin I < 0.015 Total Protein Albumin Globulin Albumin/Globulin Ratio Diagnostic Findings CXR 08/13/21: The heart is enlarged. There is mild diffuse interstitial thickening, unchanged. This favors mild central pulmonary vascular congestion without overt edema. No pneumothorax. No pleural effusions. No focal lung consolidations to suggest pneumonia. IMPRESSION: Cardiomegaly with mild central pulmonary vascular congestion without overt edema. Medications Administered Medications potassium gluconate 2.5 mEq tablet 2.5 meq PO QPM 10/12/19 [History Confirmed 08/13/21] cholecalciferol (vitamin D3) 125 mcg (5,000 unit) disintegrating tablet 5,000 units PO QAM 10/18/19 [History Confirmed 08/13/21] omeprazole 20 mg capsule,delayed release 20 mg PO BID #60 cap 08/03/21 [Rx Confirmed 08/13/21] allopurinol 300 mg tablet 150 mg PO .COMPLEX tab 08/06/21 [History Confirmed 08/13/21] atorvastatin 40 mg tablet 40 mg PO .COMPLEX tab 12/30/21 [History Confirmed 08/13/21] apixaban 5 mg tablet (Eliquis) 5 mg PO BID 08/07/21 [History Confirmed 08/13/21] cyanocobalamin (vitamin B-12) 1,000 mcg tablet 1,000 mcg PO PM 08/07/21 [History Confirmed 08/13/21] metoprolol succinate 100 mg tablet,extended release 24 hr 150 mg PO BID #270 tab 08/12/21 [Rx Confirmed 08/13/21] Home Medications Heparin Sodium/Dextrose (Heparin Iv Adult Wt-Based Low-Dose *No* Bolus Protocol) 1 ea IV Q15M TITI; Protocol Stop: 09/12/21 16:01 Diltiazem HCl 125 mg/ Dextrose 125 mls @ 5 mls/hr IV .Q24H TITI; Protocol Stop: 09/12/21 15:59 Heparin Sodium/Dextrose (Heparin Sodium/Dextrose) 25,000 units in 500 mls @ 0.02 mls/hr IV .Q24H TITI; Protocol Stop: 09/12/21 16:29 Code Status & VTE Plan Code Status Full Code VTE Prophylaxis Plan VTE Prophylaxis will be ordered: Yes Supervising Physician Co-Signing Physician Notes Documentation reviewed, I did discuss with PA. Patient presented here with rapid atrial fibrillation and hypertension. This is a recent diagnosis and the patient will have been started on Eliquis along with metoprolol. Eliquis has been discontinued the patient was due for an EGD in the very near future. Patient is now being admitted to a monitored bed, started on a Cardizem drip. I do see from his vital signs and is rate is improved although his blood pressure still somewhat elevated. Was cardiology to evaluate for further recommendations. PG Care Time/CCT Total # of Minutes Spent Total Time Spent with Patient: Total time spent is greater than 50% in coordination of care (as documented) at patient's floor/unit and/or counseling patient:35 Coding Level of Care Code INT OBSERVATION CARE 70M LVL 3 Diagnoses Atrial flutter with rapid ventricular response I48.92 Paroxysmal atrial fibrillation with rapid ventricular response I48.0 Moderate to severe mitral regurgitation I34.0 Moderate mitral stenosis I05.0 Mild aortic stenosis I35.0 Mild aortic insufficiency I35.1 Hypertension I10 Hypertension type: essential hypertension Hyperlipidemia E78.2 Hyperlipidemia type: mixed hyperlipidemia GERD (gastroesophageal reflux disease) K21.9 Anemia D64.9 Time Spent (min) 58 (1) Hyperlipidemia Hyperlipidemia type: mixed hyperlipidemia Qualified Code(s): E78.2 - Mixed hyperlipidemia (2) Hypertension Hypertension type: essential hypertension Qualified Code(s): I10 - Essential (primary) hypertension
[2021-08-13] MEDS ORDERED: HEPARIN SODIUM/DEXTROSE 25,000 UNITS/500 ML BAG IV SCH ×2 (16:30→21:23)
[2021-08-13 17:20] LABS: Thyroid Stimulating Hormone 0.665 uIu/ml (0.300-4.500)
[2021-08-13] MEDS ORDERED: CYANOCOBALAMIN 500 MCG TABLET (VITAMIN B-12) PO SCH (21:23)
[2021-08-13] MEDS ORDERED: ZOLPIDEM TARTRATE 5 MG TAB PO PRN (21:23)
[2021-08-13] MEDS ORDERED: Heparin IV Adult Wt-Based Low-Dose *NO* Bolus Protocol ONE (21:23)
[2021-08-13] MEDS ORDERED: MoRPHine SULFATE 2 MG/ML CARP IV PRN (21:23)
[2021-08-13] MEDS ORDERED: ACETAMINOPHEN 325 MG TAB PO PRN (21:23)
[2021-08-13] MEDS ORDERED: ALUMINUM/MAGNESIUM SUSP 30 ML UDC PO PRN (21:23)
[2021-08-13] MEDS ORDERED: MAGNESIUM HYDROXIDE SUSP 30 ML UDC PO PRN (21:23)
[2021-08-13] MEDS ORDERED: POTASSIUM GLUCONATE PO SCH (21:23)
[2021-08-13] MEDS ORDERED: ONDANSETRON INJ 2 MG/ML 2 ML VIAL IV PRN (21:23)
[2021-08-13] MEDS ORDERED: NITROGLYCERIN SL 0.4 MG/TAB TAB SL PRN (21:23)
[2021-08-13] MEDS ORDERED: POLYETHYLENE (MIRALAX) 17 GM PACK PO PRN (21:23)
[2021-08-13] MEDS: PANTOprazole 40 MG TAB PO SCH (22:16)
[2021-08-13] MEDS: METOPROLOL SUCC 50MG EXT REL TAB PO SCH (22:17)
[2021-08-14 02:58] LABS: Partial Thromboplastin Ratio 1.2; Partial Thromboplastin Time 31.2 Seconds (21.0-31.0)
[2021-08-14] MEDS ORDERED: HEPARIN SOD (PORCINE) 1000 UNIT/ML IV ONE (04:04)
[2021-08-14] MEDS ORDERED: HEPARIN IV BOLUS 3,000 UNITS in SYRINGE 0 ML IV ONE (05:00)
--- NOTE | 2021-08-14 06:44 | Electrocardiogram Report ---
Test Reason : Blood Pressure : / mmHG Vent. Rate : 102 BPM Atrial Rate : 340 BPM P-R Int : 000 ms QRS Dur : 086 ms QT Int : 364 ms P-R-T Axes : 000 025 126 degrees QTc Int : 474 ms Poor data quality, interpretation may be adversely affected Atrial flutter with variable A-V block T wave abnormality, consider lateral ischemia Abnormal ECG When compared with ECG of 12-OCT-2019 11:51, Atrial flutter has replaced Sinus rhythm Vent. rate has increased BY 38 BPM T wave inversion less evident in Anterolateral leads Confirmed by Ino Bisohp ([id number]) on 08/14/2021 6:44:05 AM Referred By: Confirmed By:Ino Bishop
[2021-08-14] MEDS: METOPROLOL SUCC 50MG EXT REL TAB PO SCH (08:55)
[2021-08-14] MEDS: PANTOprazole 40 MG TAB PO SCH (08:56)
[2021-08-14] MEDS ORDERED: ATORVASTATIN 40 MG TAB PO SCH (09:00)
[2021-08-14] MEDS ORDERED: allopurinoL 300 MG TAB PO SCH (09:00)
[2021-08-14] MEDS ORDERED: CHOLECALCIFEROL 5,000 UNITS 125 MCG TAB PO SCH (09:00)
--- NOTE | 2021-08-14 09:14 | History & Physical Bridge Note ---
Date of Service August 14, 2021 History & Physical Bridge Note I have examined the patient, reviewed the History & Physical and in the interval since the performance of the History & Physical I have noted the following changes of clinical significance: Patient now rate controlled on Cardizem ggt. Patient has been NPO except sips with medications post midnight. Denies any chest pain, palpitations, shortness of breath, abdominal pain, n/v, diarrhea, constipation, melena, or hematochezia. Discussed with Dr. Abernathy of anesthesia, okay to proceed with EGD today. PE: A&Ox3. RRR, +grade 2 systolic murmur. Lungs CTA bilaterally. Abdomen soft, nontender. Normal bowel sounds. A/P: Patient is a 61 y.o. male with intermittent substernal chest pain and shortness of breath admitted prior to EGD yesterday due to A flutter with RVR now rate controlled. * Remain NPO for now. * Stop Heparin ggt at 0930 this morning. * EGD with Dr. Benson at 1130 for further evaluation. * Continue Pantoprazole 40 mg BID. * Further recommendations will be made pending results of testing.
--- NOTE | 2021-08-14 11:25 | Anesthesiology Consultation ---
Date of Service August 14, 2021 The patient was supposed to have an EGD done yesterday but he came in with sob and was noted to be in afib with RVR. He was admitted to the hospital and placed on a diltiazem gtt. His HR is now under good control and he feels much better with no chest pain or sob this morning. Assessment & Plan (1) Encounter for pre-operative examination: Chart Review Chart Review: Acceptable Risk for Surgery (necessary surgery) and Patient NOT seen in Pre Admission Testing Consults Requested none History Surgery Operation Date: 08/14/21 15:45 Proposed Procedures p Esophagogastroduodenoscopy Dr. Marcelino Benson MD Height/Weight Height: 5 ft 10 in Weight: 101.5 kg Allergies Allergy/AdvReac Type Severity Reaction Status Date / Time No Known Drug Allergies Allergy Verified 08/13/21 15:07 Medications Home Medications Medication Instructions Recorded Confirmed Last Taken potassium gluconate 2.5 mEq tablet 2.5 meq PO QPM 10/12/19 08/13/21 08/13/21 cholecalciferol (vitamin D3) 125 5,000 units PO QAM 10/18/19 08/13/21 08/13/21 mcg (5,000 unit) disintegrating tablet omeprazole 20 mg capsule,delayed 20 mg PO BID #60 cap 08/03/21 08/13/21 08/13/21 08:00 release allopurinol 300 mg tablet 150 mg PO .COMPLEX tab 08/06/21 08/13/21 08/11/21 atorvastatin 40 mg tablet 40 mg PO .COMPLEX tab 08/06/21 08/13/21 08/11/21 apixaban 5 mg tablet (Eliquis) 5 mg PO BID 08/07/21 08/13/21 08/10/21 cyanocobalamin (vitamin B-12) 1,000 mcg PO PM 08/07/21 08/13/21 08/12/21 1,000 mcg tablet metoprolol succinate 100 mg 150 mg PO BID #270 tab 08/12/21 08/13/21 08/13/21 08:00 tablet,extended release 24 hr Active Medications Generic Name Dose Route Start Last Admin Trade Name Freq PRN Reason Stop Dose Admin Allopurinol 150 mg 08/14/21 09:00 08/14/21 08:48 Allopurinol 300 Mg Tab PO 09/13/21 08:59 150 mg Q3D@0900 TITI Administration Atorvastatin Calcium 40 mg 08/14/21 09:00 08/14/21 08:48 Atorvastatin 40 Mg Tab PO 09/13/21 08:59 40 mg Q3D@0900 TITI Administration Cyanocobalamin 1,000 mcg 08/13/21 21:23 08/13/21 22:16 Cyanocobalamin 500 Mcg Tablet (Vitamin B-12) PO 09/12/21 21:22 1,000 mcg PM TITI Administration Heparin Sodium/Dextrose 25,000 units in 500 mls @ 0 mls/hr 08/13/21 16:30 08/14/21 09:32 Heparin Sodium/Dextrose IV 09/12/21 16:29 0 units/hr .Q0M TITI 0 mls/hr Titration Protocol 0 UNITS/HR Metoprolol Succinate 150 mg 08/13/21 21:23 08/14/21 08:55 Metoprolol Succ 50mg Ext Rel Tab PO 09/12/21 21:22 150 mg BID TITI Administration Pantoprazole Sodium 40 mg 08/13/21 21:23 08/14/21 08:56 Pantoprazole 40 Mg Tab PO 09/12/21 21:22 40 mg BID TITI Administration Vitamin D 5,000 units 08/14/21 09:00 08/14/21 08:54 Cholecalciferol 5,000 Units 125 Mcg Tab PO 09/13/21 08:59 5,000 units QAM TITI Administration Past Medical History Medical History (Updated 08/14/21 @ 11:29 by Tyrone Abernathy MD) Anemia Anxiety no meds at present > controlled Aortic valve sclerosis Atrial fibrillation dx 08/06/21 > started on Eliquis and metoprolol yesterday with Dr. Brown > no cardioversions Chronic gout CKD (chronic kidney disease) follows with Dr. Fabian Monroy GERD (gastroesophageal reflux disease) questionable? Hyperlipidemia Hypertension Leaky heart valve just monitoring Obesity Tobacco abuse Vitamin D deficiency Exercise / Class Metabolic Activity II 4-5 Yardwork/Stairs/Walk up hill Past Family History Family History Father Heart disease Mother Leukemia Denies family history of Ovarian cancer Prostate cancer Myocardial infarction Breast cancer Colorectal cancer Stroke Past Surgical History Surgical History History of colonoscopy History of tooth extraction Past Anesthesia History No Hx of Anesthesia Complications and No Family Hx of Anesthesia Complications Social History Smoking Status: Current every day smoker tobacco type: cigarettes Smoking cigarettes per day: 15 cigs per day Do You Dip or Chew Tobacco: No Hx Alcohol Use: No Alcohol type: wine alcohol intake frequency: holidays/special occasions only Hx Substance Use: No substance use type: does not use Physical Exam Vital Signs Last Vital Signs Temp 37.0 C 08/14/21 08:00 Pulse 96 H 08/14/21 08:00 Resp 18 08/14/21 08:00 BP 142/69 H 08/14/21 08:00 Pulse Ox 96 08/14/21 08:00 Testing Laboratory Results 08/13/21 13:31 08/13/21 13:31 PT 11.7 Seconds (9.0-12.0) 08/13/21 13:31 INR 1.2 (0.9-1.1) H 08/13/21 13:31 APTT 31.2 Seconds (21.0-31.0) H 08/14/21 00:49 Electrocardiogram Date: 08/14/21 aflutter with variable heart block, rate 75, cannot rule out inferior infarct Chest X-Ray Date: 08/13/21 XR chest 1V portable HISTORY: Atrial fibrillation. Tachycardia. COMPARISON: Chest 10/12/2019. FINDINGS: The heart is enlarged. There is mild diffuse interstitial thickening, unchanged. This favors mild central pulmonary vascular congestion without overt edema. No pneumothorax. No pleural effusions. No focal lung consolidations to suggest pneumonia. IMPRESSION: Cardiomegaly with mild central pulmonary vascular congestion without overt edema. ACT 112: Negative or not required by law. Electronically signed by: Tyrone Fortune M.D. 08/13/2021 3:05 PM Dictated:08/13/21 1501 Transcribed: 08/13/21 1501 Echocardiogram Date: 03/24/21 EF: 70 Other Findings: + atrial enlargement (left atrial severe dilation) and + LVH (moderate concentric) Valvular Disease: + MS (mild) and + MR (moderate to severe) moderate outflow tract obstruction without MARCELL
[2021-08-14] MEDS ORDERED: LIDOCAINE 2% 2 ML VIAL/AMP(20MG/ML) INFIL ONE (11:51)
[2021-08-14] MEDS ORDERED: PROPOFOL IV EMULSION 10 MG/ML 20 ML VIAL IV ONE (11:51)
[2021-08-14] MEDS ORDERED: KETAMINE 50 MG/5 ML SYRINGE ONE (11:52)
[2021-08-14] MEDS ORDERED: dilTIAZem HCl 60 MG TAB PO ONE (12:00)
--- NOTE | 2021-08-14 12:16 | GI REPORT ---
Patient Name: Carly Yee Procedure Date: 08/14/2021 11:33 AM Date of : 1960 Admit Type: Inpatient Age: 61 Gender: Male Attending MD: Donny Benson MD Procedure: Upper GI endoscopy Providers: Donny Benson MD Referring MD: John Brown Indications: Epigastric abdominal pain Medicines: Monitored Anesthesia Care Complications: No immediate complications. Estimated blood loss: None. Estimated Blood Loss: Estimated blood loss: none. Procedure: Pre-Anesthesia Assessment: - Prior Anticoagulants: The patient has taken no previous anticoagulant or antiplatelet agents. - ASA Grade Assessment: II - A patient with mild systemic disease. After obtaining informed consent, the endoscope was passed under direct vision. Throughout the procedure, the patient's blood pressure, pulse, and oxygen saturations were monitored continuously. The Endoscope was introduced through the mouth, and advanced to the second part of duodenum. The upper GI endoscopy was accomplished without difficulty. The patient tolerated the procedure well. Findings: LA Grade A (one or more mucosal breaks less than 5 mm, not extending between tops of 2 mucosal folds) esophagitis with no bleeding was found in the lower third of the esophagus. Biopsies were taken with a cold forceps for histology. Estimated blood loss: none. Diffuse mild inflammation characterized by erythema was found in the stomach. Biopsies were taken with a cold forceps for Helicobacter pylori testing. Estimated blood loss: none. The duodenal bulb and second portion of the duodenum were normal. Impression: - LA Grade A esophagitis. Biopsied. - Gastritis. Biopsied. - Normal duodenal bulb and second portion of the duodenum. Recommendation: - Return patient to hospital [facility] for ongoing care. - Advance diet as tolerated today. - Await pathology results. Donny Benson MD 08/14/2021 12:16:00 PM This report has been signed electronically. Note Initiated On: 08/14/2021 11:33 AM Number of Addenda: 0 I attest to the content of the Intraoperative Record and orders documented therein, exceptions below {[id number]}
--- NOTE | 2021-08-14 12:21 | Anesthesiology Progress Note ---
Date of Service August 14, 2021 Anesthesia Post Procedure Vital Signs Vital Signs: Temp Pulse Pulse Pulse Resp BP BP 08/14/21 12:10 84 16 144/90 H 08/14/21 11:25 36.7 C 76 18 153/95 H 08/14/21 08:00 37.0 C 96 H 18 08/14/21 03:21 36.8 C 83 17 08/13/21 23:47 88 16 08/13/21 22:50 82 19 08/13/21 22:40 89 29 H 08/13/21 22:30 89 21 162/105 H 08/13/21 22:20 88 15 08/13/21 22:10 84 16 08/13/21 22:00 81 10 L 08/13/21 21:50 79 12 08/13/21 21:40 79 21 08/13/21 21:30 84 20 154/102 H 08/13/21 21:20 91 H 19 08/13/21 21:10 78 12 08/13/21 21:00 75 21 135/103 H 08/13/21 20:50 81 23 08/13/21 20:40 82 22 08/13/21 20:30 83 17 159/91 H 08/13/21 20:20 75 13 08/13/21 20:10 77 21 08/13/21 20:00 83 22 147/86 H 08/13/21 19:50 84 18 08/13/21 19:40 77 21 08/13/21 19:30 78 18 153/87 H 08/13/21 19:20 84 20 08/13/21 19:10 79 22 08/13/21 19:00 85 23 153/107 H 08/13/21 18:50 85 20 08/13/21 18:40 92 H 22 08/13/21 18:30 89 23 08/13/21 18:20 86 23 08/13/21 18:10 89 22 08/13/21 18:00 101 H 20 156/97 H 08/13/21 17:50 87 24 08/13/21 17:40 109 H 16 08/13/21 17:30 88 27 H 151/119 H 08/13/21 17:20 83 20 08/13/21 17:10 84 20 08/13/21 17:00 80 20 159/85 H 08/13/21 16:50 88 21 08/13/21 16:42 90 22 08/13/21 13:20 08/13/21 13:06 36.6 C 104 H 20 184/74 H BP Pulse Ox 08/14/21 12:10 99 08/14/21 11:25 98 08/14/21 08:00 142/69 H 96 08/14/21 03:21 138/84 95 08/13/21 23:47 128/64 97 08/13/21 22:50 08/13/21 22:40 08/13/21 22:30 97 08/13/21 22:20 96 08/13/21 22:10 87 L 08/13/21 22:00 98 08/13/21 21:50 94 08/13/21 21:40 91 08/13/21 21:30 95 08/13/21 21:20 97 08/13/21 21:10 97 08/13/21 21:00 97 08/13/21 20:50 96 08/13/21 20:40 92 08/13/21 20:30 94 08/13/21 20:20 97 08/13/21 20:10 95 08/13/21 20:00 94 08/13/21 19:50 92 08/13/21 19:40 95 08/13/21 19:30 08/13/21 19:20 94 08/13/21 19:10 96 08/13/21 19:00 96 08/13/21 18:50 96 08/13/21 18:40 95 08/13/21 18:30 96 08/13/21 18:20 97 08/13/21 18:10 08/13/21 18:00 91 08/13/21 17:50 08/13/21 17:40 08/13/21 17:30 08/13/21 17:20 96 08/13/21 17:10 96 08/13/21 17:00 97 08/13/21 16:50 97 08/13/21 16:42 97 08/13/21 13:20 97 08/13/21 13:06 98 Transfer of Care Handoff Completed per policy Notes Mental Status: alert / awake / arousable Patient Amnestic to Procedure: Yes Nausea / Vomiting: adequately controlled Pain: adequately controlled Airway Patency, RR, SpO2: stable & adequate BP & HR: stable & adequate Hydration State: stable & adequate Anesthetic Complications: no major complications apparent and Pt Satisfied with anesthetic care Notes: The patient is awake and comfortable. His vital signs are stable.
--- NOTE | 2021-08-14 15:17 | XCELERA ---
[id number]
--- NOTE | 2021-08-14 16:15 | Electrocardiogram Report ---
Test Reason : Blood Pressure : / mmHG Vent. Rate : 075 BPM Atrial Rate : 348 BPM P-R Int : 000 ms QRS Dur : 096 ms QT Int : 428 ms P-R-T Axes : 093 -05 111 degrees QTc Int : 477 ms Atrial flutter with variable A-V block Cannot rule out Inferior infarct , age undetermined Abnormal ECG When compared with ECG of 13-AUG-2021 13:22, No significant change was found Confirmed by Mane Win ([id number]) on 08/14/2021 4:15:39 PM Referred By: John Brown Confirmed By:Mane Win
--- NOTE | 2021-08-14 17:46 | Discharge Summary ---
Date of Service August 14, 2021 Admission HPI Per Admitting Provider Mr. Yee is a 61-year-old male with a history of GERD, Anxiety, Tobacco Abuse, Hypertension, Hyperlipidemia, Obesity, CKD, Gout, and Valvular Heart Disease (Moderate to Severe IN, Moderate MS, Mild ,Mild AI) who was diagnosed with Paroxysmal Atrial Fibrillation with RVR on 08/06/[address] Brown office complaining of exertional dyspnea over the preceding 3 or 4 weeks. Patient was started on Toprol XL 100 mg b.i.d. and Eliquis 5 mg b.i.d.. He met with Dr. Brown in follow-up on 08/11/21 at which time an EKG showed A- Flutter at 105 bpm with variable AV conduction. Patient's Toprol XL was increased to 150 mg b.i.d., and he was maintained on Eliquis 5 mg b.i.d.. The patient was actually scheduled for an EGD today and he has not taken any Eliquis in the past 48 hours. When he was evaluated by Anesthesia he was noted to be tachycardic, particularly after walking with his ventricular response rate increasing into the 120s and 130s. EGD was canceled and he was referred to the emergency room. EGD was scheduled by his PCP for an anemia and intermittent upper abdomen and lower chest discomfort. Patient continues to complain of exertional dyspnea whenever he climbs up stair s, or if he walks up a grade. His exertional tolerance has decreased since being in atrial fibrillation/atrial flutter. Patient denies any exertional chest pain, heaviness, tightness, pressure, or discomfort. He denies any exertional neck, jaw, back, or arm pain. He denies any shortness of breath at rest, orthopnea, or PND. He denies any peripheral edema or weight gain. Patient occasionally feels a brief palpitation status rare. He has not had any syncope or near syncope. Patient has not had any symptoms suggestive of stroke or mini stroke. His last stool was "perico appearing" but he denies any martina melena or hematochezia. Patient denies any dysuria or hematuria. Principal Diagnosis gastritis, aflutter w mild RVR Discharge Exam gen aaox3 pleasant nad heent nc at mmm breathing unlabored no accessory muscles good effort rate better controlled abd soft mild epigastric ttp no guarding no rebound no rigidity Discharge Data Allergies Allergy/AdvReac Type Severity Reaction Status Date / Time No Known Drug Allergies Allergy Verified 08/13/21 15:07 Consultations 08/13/21 15:14 ED Decision to Admit Stat Procedures Performed Operation Date: 08/14/21 15:45 Actual Procedures p EGD Biopsy Cytology - Donny Benson MD Hospital Course (1) Atrial flutter with rapid ventricular response: Rates now better controlled Home on diltiazem in addition to his metoprolol Continue anticoagulation Close outpatient cardiology follow-up (2) GERD (gastroesophageal reflux disease): gastritis on EGD - PPI BID, carafate, stress management, biopsies pending (3) Paroxysmal atrial fibrillation with rapid ventricular response: (4) Moderate to severe mitral regurgitation: (5) Moderate mitral stenosis: (6) Mild aortic stenosis: (7) Mild aortic insufficiency: (8) Hypertension: (9) Hyperlipidemia: (10) Anemia: -- EGD only with gastritis, outpt w/u and f/u stable for home Total Time Total Time Spent Total Time Spent (In Minutes): <30 Discharge Plan Discharge Items Patient Disposition: Home - Self-Care Reason For Visit: A-FLUTTER WITH RVR Discharge Diagnosis: atrial flutter, gastritis Condition on Discharge: Fair Activity: Resume your previous activity Non-emergency contact: Primary Care Provider and Gym Teacher Call non-emergency contact if: you have any medication questions Follow-up/Referrals: Patience Hughes CRNP [Primary Care Provider] - Diet: Low Sodium (2gm) Addtl Attending Provider Instructions: gastritis -your stomach pain/upper abdominal pain most likely relates to gastritis -gastritis is inflammation of the lining of the stomach, which as we discussed, has multiple causes. The biopsy will mostly define whether or not it is an infection with a bacteria called H. pyloriif this is positive, Dr. Benson will be getting you on appropriate treatment -Beyond H. pylori, the other common causes of gastritis are anti-inflammatories (of which you take none), alcohol (you do not drink), and stress manag ementwhich you noted has been a bit of an issue recently. Before even talking about what we do to treat the gastritis itself, we definitely need to have you work on the underlying cause. Given that music sounds to be a good way for you to have a "meditative form of stress management" I would highly recommend you increase how often you are listening, and relaxing listening to musicI am really happy that you started once a week, but "doctors orders" I would recommend doing it somewhere between 5 times a week to dailyat least even a little bit. -As you are working on "root cause" we can also increase what were doing to help your stomach lining heal over. Take the omeprazole (Prilosec) twice a dayyou have noted you are taking it once. Additionally, I have sent a prescription for a medicine called Carafate (sucralfate)as we discussed, the Carafate mostly helps to coat stomach and esophagus, making it less painful. The omeprazole reduces acid that allows it to heal over Atrial fibrillation flutter -Your heart rates were still running a little bit higher than we would likeas we discussed, it is very common with atrial flutter (even more so than atrial fibrillationwhich is why Dr. Brown is watching this closely and has a low threshold to move forward with a cardioversion). -Your echocardiogram (ultrasound of your heart) looked essentially identical to the one from Marchwith a normal squeeze (ejection fraction 60 to 65%), a little bit of thickening of the heart wall (mild concentric LVH), and a little bit of mild valvular disease (mild aortic regurgitation, mild mitral stenosis and mild mitral regurgitation) -atrial flutter is fairly common to be a little bit difficult to control the rateso it is not very surprising that your rates were still little faster than we would like (certainly not in any sort of super worrisome range, just faster than we would like to see), and anytime somebody sick with anything else, atrial arrhythmias like atrial flutter frequently go fasterso the discomfort from the gastritis, as well as the stress, or both probably reasons that your heart rates were a little faster as well. At any rate, we have added diltiazem 120 mg angel lyto augment the metoprololto help keep your rates under control. Continue to follow closely with Dr. Brown, typically in the early going of a diagnosis like this, the medications to control it are almost always a "work in progress" Pending Studies at Discharge: No Stand-Alone Forms: My [facility], Smoking Cessation Medications and DC Order Prescriptions: New diltiazem HCl [Taztia XT] 120 mg Capsule,Extended Release 24 Hr 120 mg PO QAM Qty: 30 RF: 0 sucralfate [Carafate] 100 mg/mL suspension 1 g PO AC 28 Days Qty: 840 RF: 0 Continued omeprazole 20 mg capsule,delayed release(DR/EC) 20 mg PO BID Qty: 60 RF: 5 metoprolol succinate 100 mg tablet extended release 24 hr 150 mg PO BID Qty: 270 RF: 3 allopurinol 300 mg tablet 150 mg PO .COMPLEX RF: 0 atorvastatin 40 mg tablet 40 mg PO .COMPLEX RF: 0 cholecalciferol (vitamin D3) 5,000 unit tablet,disintegrating 5,000 units PO QAM RF: 0 potassium gluconate 2.5 mEq Tablet 2.5 meq PO QPM RF: 0 cyanocobalamin (vitamin B-12) 1,000 mcg Tablet 1,000 mcg PO PM RF: 0 Eliquis 5 mg Tablet 5 mg PO BID RF: 0 Discharge Orders: Discharge Order (Routine); Ordered 08/14/21 Ordered By: Hernan Connors Admission Data Admit Date/Time: 08/13/21 15:45 Attending Provider: Hernan Connors Admit Provider: Mahendra Ruiz Primary Care Provider: Patience Hughes Other Providers: Mahendra Ruiz Coding Level of Care Code 07313 OBS Care - Discharge Diagnoses Atrial flutter with rapid ventricular response I48.92 Paroxysmal atrial fibrillation with rapid ventricular response I48.0 Moderate to severe mitral regurgitation I34.0 Moderate mitral stenosis I05.0 Mild aortic stenosis I35.0 Mild aortic insufficiency I35.1 Hypertension I10 Hypertension type: essential hypertension Hyperlipidemia E78.2 Hyperlipidemia type: mixed hyperlipidemia GERD (gastroesophageal reflux disease) K21.9 Anemia D64.9
[2021-08-15] MEDS ORDERED: dilTIAZem ER 120 MG CAPCR PO SCH (09:00)
== END 2021-08-14 18:03 | disposition home or self-care (01) ==
LOC: ED 12:56 → EDINP 12:56 → SUATTDRO 15:45 → 2S 18:45

== ENCOUNTER 2024-09-07 15:08 | Inpatient (IN) ==
--- NOTE | 2024-09-07 15:54 | XRay Report ---
XR chest 1V not portable CLINICAL HISTORY: Chest pain, nonspecific COMPARISON STUDY: 07/30/2024 FINDINGS: Stable cardiomegaly with mild pulmonary vascular congestion. Stable moderate left pleural e ffusion and associated consolidation at the left lower lung. No pneumothorax. IMPRESSION: Stable exam. ACT 112: Negative or not required by law. Electronically signed by: Gustavo Allen M.D. 09/07/2024 3:53 PM
--- NOTE | 2024-09-07 16:29 | Emergency Department Note ---
Impression & Plan Acute exacerbation of CHF (congestive heart failure), KAMRYN (acute kidney injury), BURNS (dyspnea on exertion), Elevated troponin ED Provider Note NAME: NAYELI ORO AGE: 64 SEX: M : 1960 ARRIVES VIA: Walk-In INFORMANT: Patient, daughter ED PROVIDER(S): Shun Darling MD CHIEF COMPLAINT: Shortness of breath, leg swelling, decreased p.o. intake MEDICAL DECISION MAKING: Patient presents with the above. The patient does have significant 4+ pitting edema in the lower extremities. No calor. IV was established and blood work was obtained along with an EKG and chest x-ray. Patient's blood work shows a normal white count hemoglobin with thrombocytopenia at 82,000 which is new. Kidney function with creatinine 2.86. Worsened from prior. Troponin elevated at 120. Repeat at 129. BNP greater than 4700. Patient was ordered IV Lasix 80 mg. I did speak the on-call hospitalist service and the patient was admitted to the medicine service by Dr. Rider Discussion w/ other healthcare providers: RASHAAD Calix PA-C and Dr. Rider inpatient medicine service Prior /Outside records reviewed: None Differential diagnosis: Reactive airway disease, pneumonia, pneumothorax, COPD, CHF, ACS, pulmonary embolism, musculoskeletal, GERD as well as other pathologies were considered. Diagnostics, as interpreted by me: ECG: Junctional rhythm versus A-fib, ventricular rate 54 normal QRS duration, normal axis. Cardiac monitoring: An order was placed for continuous cardiac monitoring. The monitor shows a rate of 68 with sinus rhythm. Patient was placed on pulse oximetry Medical decision rules: None Imaging studies: I informally interpreted the patient's chest x-ray shows left-sided pleural effusion with formal report to follow. HPI: Patient presents due to concern for worsening shortness of breath decreased p.o. intake fatigability. The patient states that he cannot get more than 4 is currently located in the bed to meet with the bathroom door without being very winded and needing to take a break. Patient denies any cough or fever. Non- smoker. The patient states that he is compliant with his medications. Patient states that he does follow with [facility] with heart failure as well as with Dr. Yanez. He reportedly did have an x-ray just prior to the was called about it and told that he might have a extra fluid on the lungs which may benefit from what he describes as fluid removal or thoracentesis. He states that he never received any sort of follow-up call. Patient states that he has been taking his medications and is compliant. No increase in salt or processed foods per patient in the diet. Patient did not take his morning medications but otherwise has been taking them. Patient denies any falls or trauma. Patient states that his legs have been more swollen. He does not think that he has been gaining weight but that his legs been more swollen he has even had some leakage of clear fluid from the lower portion of the right leg. He also reports he does not been eating or drinking as much. Daughter at bedside also states the same and that he looks very thin from the waist above. PAST MEDICAL HISTORY: See Below PAST SURGICAL HISTORY: See Below SOCIAL HISTORY: See Below HOME MEDICATIONS: See Below ALLERGIES: See Below VITALS: See Below PHYSICAL EXAMINATION: GENERAL: NAD, non-toxic. Wearing glasses. Thin in appearance. EYE EXAM: Normal conjunctiva. PERRL, no anisocoria and EOM's grossly intact w/o pain. OROPHARYNX: Moist mucus membranes, grossly normal dentition. NECK: Trachea midline, no stridor. Supple, no nuchal rigidity, no adenopathy, non-tender. No signs of meningismus. FROM of the neck with good chin to chest and neck extension. LUNGS: Bibasilar crackles. Normal chest wall mechanics. HEART: NSR, systolic ejection murmur noted. ABDOMEN: Abdomen soft, non-tender, no masses, no rebound or guarding. BACK: No CVA TTP. SKIN: No rashes and no bruising. UPPER EXTREMITIES: Upper extremities are grossly normal. LOWER EXTREMITIES: Grossly normal, 4+ symmetric pitting edema without calf pain or erythema. NEURO EXAM: A&O x3, cranial nerves II-XII grossly intact, normal speech, moves all 4 extremities. Past Med/Surg History Problem List (Updated 09/08/24 @ 00:22 by Shun Darling MD) Elevated troponin (Acute) Acute exacerbation of CHF (congestive heart failure) (Acute) Difficulty swallowing KAMRYN (acute kidney injury) (Acute) Acute heart failure with preserved ejection fraction (HFpEF) Pleural effusion, left Dynamic left ventricular outflow obstruction Aortic regurgitation Mitral regurgitation Mitral stenosis (HFpEF) heart failure with preserved ejection fraction Peripheral edema Restless leg syndrome Pre-diabetes [id number] kidney injury BURNS (dyspnea on exertion) (Acute) Declined smoking cessation Anemia Obesity Tachycardia (Acute) CKD (chronic kidney disease) (Acute) Atrial flutter (Acute) GERD (gastroesophageal reflux disease) questionable? Anxiety (Chronic) Chronic gout (Chronic) Hidradenitis suppurativa (Chronic) Hyperlipidemia (Chronic) Hypertension (Chronic) Moderate to severe mitral regurgitation Moderate mitral stenosis Mild aortic stenosis Mild aortic insufficiency Medical History Anxiety no meds at present > controlled Leaky heart valve just monitoring CKD (chronic kidney disease) follows with Dr. Peralta Hypertension Hyperlipidemia Chronic gout Atrial fibrillation dx 08/06/21 > started on Eliquis and metoprolol yesterday with Dr. Brown > no cardioversions Tobacco abuse Aortic valve sclerosis Surgical History History of colonoscopy History of tooth extraction Family History Father Heart disease Mother Leukemia Denies family history of Ovarian cancer Prostate cancer Myocardial infarction Breast cancer Colorectal cancer Stroke Social History Smoking Status: Current every day smoker Tobacco Type: Cigarettes Age Started Using Tobacco: 20; packs per day: 1; Cigarettes Per Day: 15; Second Hand Exposure: No; Do You Dip or Chew Tobacco: No; Hx Alcohol Use: No Hx Substance Use: No Preferred Language: Georgian Communication Ability: Effective Hearing Ability: Normal 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 Beliefs That Will Affect Care: None marital status: Current Living Situation: Alone current occupational status: retired current occupation: self employed How many Children do You have: 1 Feels Safe at Home: Yes Safety Concerns: Feels Safe At This Time Childhood Exposure to Second-Hand Smoke: Yes Diet: regular caffeine: Yes Dental Care, Regularly: Yes Physical Activity Frequency: Daily Seatbelt Use: always Sunscreen Use: No Assistive Devices: Glasses Allergies Allergies Allergy/AdvReac Type Severity Reaction Status Date / Time No Known Drug Allergies Allergy Unknown Verified 09/07/24 19:03 Home Meds Home Medications Medication Instructions Recorded Confirmed potassium gluconate 2.5 mEq tablet 2.5 meq PO QAM 10/12/19 09/07/24 cyanocobalamin (vitamin B-12) 1,000 mcg PO PM 08/07/21 09/07/24 1,000 mcg tablet furosemide 20 mg tablet 20 mg PO DAILY 09/07/24 09/07/24 metolazone 2.5 mg tablet 2.5 mg PO WK 09/07/24 09/07/24 Previous Rx's Medication Instructions Recorded nitroglycerin 0.4 mg sublingual 0.4 mg sublingual Q5M PRN chest 10/29/22 tablet pain #25 tabs ferrous sulfate 325 mg (65 mg 325 mg PO Q OTHER DAY #30 tabs 10/06/23 iron) tablet gabapentin 100 mg capsule 200 mg (2 x 100 mg) PO DAILY #60 11/01/23 caps atorvastatin 40 mg tablet 40 mg PO .COMPLEX #45 tabs 11/02/23 allopurinol 300 mg tablet 300 mg PO DAILY #90 tabs 12/29/23 metoprolol succinate 100 mg 100 mg PO BID #180 tabs 02/07/24 tablet,extended release 24 hr diltiazem HCl 120 mg 120 mg PO DAILY #90 caps 02/29/24 capsule,extended release 24 hr omeprazole 20 mg capsule,delayed 20 mg PO BID #60 caps 02/29/24 release apixaban 5 mg tablet (Eliquis) 5 mg PO BID #60 tabs 03/29/24 digoxin 125 mcg (0.125 mg) tablet 125 mcg PO DAILY #90 tabs 07/10/24 empagliflozin 10 mg tablet 10 mg PO DAILY #90 tabs 08/06/24 (Jardiance) Results & Data (ED) Vital Signs Vital Signs - 24 hr 09/07/24 15:22 09/07/24 16:18 09/07/24 16:18 Temperature 37.0 C Temperature Source Temporal Artery Scan Pulse Rate 56 L Pulse Rate [Apical] 53 L Respiratory Rate 17 17 Respiratory Effort / Characteristics Non-Labored Spontaneous Non-Labored Spontaneous Respiratory Depth Normal Normal Blood Pressure 123/73 Blood Pressure [Right Arm] 125/67 Blood Pressure Mean 89 Blood Pressure Mean [Right Arm] 86 Blood Pressure Position Sitting Blood Pressure Position [Right Arm] Semi-fowlers Pulse Oximetry 97 94 94 Oxygen Delivery Method Room Air Room Air Room Air Sepsis Recent Fever Within 48 Hours No Sepsis New/Unexplained Change in Mental Status N/A Sepsis Action Taken by Nursing No Action Required 09/07/24 16:20 09/07/24 16:47 09/07/24 18:00 Temperature Temperature Source Pulse Rate 54 L 53 L Pulse Rate [Apical] 52 L Respiratory Rate 14 17 Respiratory Effort / Characteristics Non-Labored Spontaneous Respiratory Depth Normal Blood Pressure Blood Pressure [Right Arm] 123/64 Blood Pressure Mean Blood Pressure Mean [Right Arm] 83 Blood Pressure Position Blood Pressure Position [Right Arm] Semi-fowlers Pulse Oximetry 94 94 Oxygen Delivery Method Room Air Room Air Sepsis Recent Fever Within 48 Hours Sepsis New/Unexplained Change in Mental Status Sepsis Action Taken by Long Term Medications Current Medication List: was personally reviewed by me Laboratory Data Attestation: I reviewed the patient's lab results. 09/07/24 15:30 09/07/24 15:30 Lab Results 09/07/24 09/07/24 09/07/24 Range/Units 15:30 16:30 17:40 WBC 7.28 (4.8-10.8) K/ul RBC 4.72 (4.70-6.10) M/uL Hgb 15.5 (14.0-18.0) g/dl Hct 46.1 (42.0-52.0) % MCV 97.7 (80.0-100.0) fL MCH 32.8 (25.0-34.0) pg MCHC 33.6 (32.0-36.0) g/dL RDW Std Deviation 61.0 H (36.4-46.3) fL RDW Coeff of Katelin 17.2 H (11.5-14.5) % Plt Count 82 L (130-400) K/uL MPV 12.7 H (9.4-12.4) fL Immature Gran % (Auto) 0.5 % Neut % (Auto) 82.9 % Lymph % (Auto) 8.2 % [place] % (Auto) 6.9 % Eos % (Auto) 0.8 % Baso % (Auto) 0.7 % Neut # (Auto) 6.03 (1.40-6.50) K/uL Lymph # (Auto) 0.60 L (1.20-3.40) K/uL [place] # (Auto) 0.50 (0.11-0.59) K/uL Eos # (Auto) 0.06 (0.00-0.50) K/uL Baso # (Auto) 0.05 (0.00-0.20) K/uL Immature Gran # (Auto) 0.04 (0.01-0.20) K/uL Absolute Nucleated RBC 0.02 (0.00-0.12) K/uL Nucleated RBC % (auto) 0.3 % Platelet Estimate Decreased L (Normal) PT Cancelled 13.2 H INR Cancelled 1.2 H APTT Cancelled 29 PTT Ratio Cancelled 1.1 Sodium 140 (136-145) mmol/L Potassium 3.7 (3.5-5.1) mmol/L Chloride 101 (98-107) mmol/L Carbon Dioxide 28 (21-32) mmol/L Anion Gap 11 (3-11) BUN 92 H (6-23) mg/dl Creatinine 2.86 H (0.6-1.4) mg/dl Est Cr Clr Drug Dosing 29.3 ml/min eGFR 23.82 BUN/Creatinine Ratio 32.2 H (10-20) Glucose 114 H (70-99(Fasting)) mg/dl Calcium 9.1 (8.6-10.3) mg/dl Phosphorus 4.7 (2.5-4.9) mg/dl Magnesium 2.2 (1.7-2.4) mg/dl Total Bilirubin 1.5 H (0.2-1.0) mg/dl AST 19 (13-39) U/L ALT 14 (7-52) U/L Alkaline Phosphatase 110 H (34-104) U/L Troponin I High Sens 120.7 H* (0-20) pg/ml B-Natriuretic Peptide > 4700 H (0-100) pg/ml Total Protein 6.3 (6.0-8.3) gm/dl Albumin 3.5 (3.4-5.0) gm/dl Globulin 2.8 (2.5-4.0) gm/dl Albumin/Globulin Ratio 1.3 (0.9-2) 09/07/24 Range/Units 17:41 WBC (4.8-10.8) K/ul RBC (4.70-6.10) M/uL Hgb (14.0-18.0) g/dl Hct (42.0-52.0) % MCV (80.0-100.0) fL MCH (25.0-34.0) pg MCHC (32.0-36.0) g/dL RDW Std Deviation (36.4-46.3) fL RDW Coeff of [place]elin (11.5-14.5) % Plt Count (130-400) K/uL MPV (9.4-12.4) fL Immature Gran % (Auto) % Neut % (Auto) % Lymph % (Auto) % [place] % (Auto) % Eos % (Auto) % Baso % (Auto) % Neut # (Auto) (1.40-6.50) K/uL Lymph # (Auto) (1.20-3.40) K/uL [place] # (Auto) (0.11-0.59) K/uL Eos # (Auto) (0.00-0.50) K/uL Baso # (Auto) (0.00-0.20) K/uL Immature Gran # (Auto) (0.01-0.20) K/uL Absolute Nucleated RBC (0.00-0.12) K/uL Nucleated RBC % (auto) % Platelet Estimate (Normal) PT INR APTT PTT Ratio Sodium (136-145) mmol/L Potassium (3.5-5.1) mmol/L Chloride (98-107) mmol/L Carbon Dioxide (21-32) mmol/L Anion Gap (3-11) BUN (6-23) mg/dl Creatinine (0.6-1.4) mg/dl Est Cr Clr Drug Dosing ml/min eGFR BUN/Creatinine Ratio (10-20) Glucose (70-99(Fasting)) mg/dl Calcium (8.6-10.3) mg/dl Phosphorus (2.5-4.9) mg/dl Magnesium (1.7-2.4) mg/dl Total Bilirubin (0.2-1.0) mg/dl AST (13-39) U/L ALT (7-52) U/L Alkaline Phosphatase (34-104) U/L Troponin I High Sens 129.4 H* (0-20) pg/ml B-Natriuretic Peptide (0-100) pg/ml Total Protein (6.0-8.3) gm/dl Albumin (3.4-5.0) gm/dl Globulin (2.5-4.0) gm/dl Albumin/Globulin Ratio (0.9-2) Administered Medications Metoprolol Succinate (Metoprolol Succ 50mg Ext Rel Tab) 100 mg PO BID TITI Stop: 10/07/24 21:44 Last Admin: 09/07/24 21:59 Dose: Not Given Documented By: TMG Pantoprazole Sodium (Pantoprazole 40 Mg Tab) 40 mg PO BID TITI Stop: 10/07/24 21:59 Last Admin: 09/07/24 22:25 Dose: 40 mg Documented By: TMG Discontinued Medications Furosemide (Furosemide 40 Mg/4 Ml Vial) 80 mg IV ONE ONE Stop: 09/07/24 17:48 Last Admin: 09/07/24 17:59 Dose: 80 mg Documented By: MMF Potassium Chloride (Potassium Chloride 20 Meq/15 Ml Udc) 20 meq PO NOW STA Stop: 09/07/24 19:17 Last Admin: 09/07/24 19:43 Dose: 20 meq Documented By: MMF Imaging Data Radiologist's Impression: Chest X-Ray 09/07/24 15:30 XR chest 1V not portable CLINICAL HISTORY: Chest pain, nonspecific COMPARISON STUDY: 07/30/2024 FINDINGS: Stable cardiomegaly with mild pulmonary vascular congestion. Stable moderate left pleural effusion and associated consolidation at the left lower lung. No pneumothorax. IMPRESSION: Stable exam. ACT 112: Negative or not required by law. Electronically signed by: Gustavo Allen M.D. 09/07/2024 3:53 PM Discharge Plan Visit Data Chief Complaint: Shortness of Breath/Dyspnea Stated Complaint: SOB, LEGS SWELLED, ED Provider: Shun Darling Discharge Problem: Acute exacerbation of CHF (congestive heart failure), KAMRYN (acute kidney injury), BURNS (dyspnea on exertion), Elevated troponin Patient Disposition: Admitted As Inpatient Discharge Instructions Interventions: ED Discharge Assessment Last Done: 09/07/24 21:10 Discharge Problem: Acute exacerbation of CHF (congestive heart failure) Qualifiers: Heart failure type: unspecified Qualified Code(s): I50.9 - Heart failure, unspecified
[2024-09-07 17:12] LABS: Albumin Globulin Ratio 1.3 (0.9-2); Albumin Level 3.5 gm/dl (3.4-5.0); BUN Creatinine Ratio 32.2 (10-20); Bilirubin,Total 1.5 mg/dl (0.2-1.0); Calcium 9.1 mg/dl (8.6-10.3); Creatinine Clr Calc Pharmacy 29.3 ml/min; Globulin 2.8 gm/dl (2.5-4.0); Magnesium 2.2 mg/dl (1.7-2.4); Phosphorus 4.7 mg/dl (2.5-4.9); Potassium 3.7 mmol/L (3.5-5.1); Total Protein 6.3 gm/dl (6.0-8.3)
[2024-09-07 17:17] LABS: Basophils # (auto) 0.05 K/uL (0.00-0.20); Basophils % (auto) 0.7 %; Eosinophils # (auto) 0.06 K/uL (0.00-0.50); Eosinophils % (auto) 0.8 %; Hematocrit (blood only) 46.1 % (42.0-52.0); Hemoglobin 15.5 g/dl (14.0-18.0); Immature Granulocytes # (auto) 0.04 K/uL (0.01-0.20); Immature Granulocytes % (auto) 0.5 %; Lymphocytes % (auto) 8.2 %; Mean Corpuscular Hemoglobin 32.8 pg (25.0-34.0); Mean Corpuscular Hgb Conc 33.6 g/dL (32.0-36.0); Mean Corpuscular Volume 97.7 fL (80.0-100.0); Mean Platelet Volume 12.7 fL (9.4-12.4); Monocytes % (auto) 6.9 %; Neutrophils # (auto) 6.03 K/uL (1.40-6.50); Neutrophils % (auto) 82.9 %; Nucleated RBC # (auto) 0.02 K/uL (0.00-0.12); Nucleated RBC % (auto) 0.3 %; Platelet Count 82 K/uL (130-400); Platelet Estimate Decreased (Normal); RDW Coefficient of Variation 17.2 % (11.5-14.5); Red Blood Count 4.72 M/uL (4.70-6.10); White Blood Count 7.28 K/ul (4.8-10.8)
[2024-09-07 17:32] LABS: Troponin I High Sensitivity 120.7 pg/ml (0-20)
[2024-09-07] MEDS: FUROSEMIDE 40 MG/4 ML VIAL IV ONE (17:59)
--- NOTE | 2024-09-07 17:59 | History & Physical Report ---
Date of Service September 07, 2024 Assessment & Plan (1) Acute heart failure with preserved ejection fraction (HFpEF): (2) KAMRYN (acute kidney injury): (3) Difficulty swallowing: Plan #Acute CHF CXR on arrival revealed cardiomegaly with mild pulmonary vascular congestion LETY on 12/18/2023 revealed LVEF >70%, with severe left atrial dilation and moderate to severe mitral annular calcification BNP >4700 on arrival (similar to prior) Lasix 80 mg IV x 1 given in the ED Potassium elixir 20mEq x 1 Hold further Lasix and metolazone for now Daily weights Strict I&O monitoring Heart healthy diet (1200 mL fluid restriction) Cardiology consult appreciated #KAMRYN BUN 92, creatinine 2.86 (baseline around 2.3, but progressively worsening) Avoid nephrotoxic agents where possible Nephrology consult appreciated for potential cardiorenal syndrome #Elevated troponin Troponin 120->129; trend to peak Patient reports he is chest pain-free at time of admission Suspect secondary to acute heart failure, demand ischemia Continuous telemetry monitoring #Difficulty swallowing Progressive worsening dysphagia of pills over the past 2 months Gastroenterology consult appreciated for potential EGD #Paroxysmal atrial fibrillation Continue digoxin, metoprolol Digoxin level ordered, pending Hold Eliquis in the event that patient requires thoracentesis #Tobacco use Nicotine patch Continue to encourage cessation Disposition: Admit to PCU telemetry Full code Heart healthy, low-sodium diet (1200 mL fluid restriction) VTE PPx: Thigh-high SCDs; hold Eliquis History of Present Illness Chief Complaint: SOB/dyspnea Primary Care Provider: John Brown MD Carly is a 64-year-old male with PMH of HFpEF, left ventricular outflow obstruction, moderate to severe mitral regurg, atrial flutter, anxiety, HTN, and HLD. He presented on 09/07 for progressive weakness, bilateral leg swelling, and SOB with exertion. He denies SOB at rest, but his SOB with exertion has been getting significantly worse. He reports he can barely take 5 steps without feeling the need to sit down. He also endorses orthopnea. Only recent change in medication was that patient was decreased on metolazone at cardiology appointment on July 27. He reports good compliance with taking his medication at home, but does report he had significant difficulty swallowing. This has been an issue over the past 2 months. He says he is okay swallowing small pills, but has difficulty with big ones, and it makes him "not want to take pills". Patient had an EGD done in 2019 for his stomach, for short-term dysphagia, but then later improved; he does not believe he had a balloon dilation at that time. Patient did not take his regular medicine this morning. Patient lives by himself. He does not ambulate with a walker or cane. His daughter (Jose) at bedside does express concern for significant weight loss over the fall; patient reports used to be 225 pounds, but is currently 170. Patient's also recently left him. No sick contacts. Patient reports he watches his salt intake at home. He is still producing urine. He is a current tobacco cigarette smoker; smokes 0.75 packs/day. Patient's vitals are stable at time of admission. ED course: Lasix 80 mg IV ROS: Patient endorses progressive worsening of BURNS, LE edema, weight changes, difficulty swallowing, runny nose, coughing (attributes to sinuses), orthopnea diarrhea (resolved; had it last month), bright red blood in stool (ongoing; he reports he has had hemorrhoids before, but reports this looks different as it is "mucuous-y"). Patient denies fever, chills, night-sweats, chest pain, chest palpitations, pleuritic CP, syncope, abdominal pain, N/V, melena, burning with urination, blood in urine, or decreased urinary frequency. Allergies Allergy/AdvReac Type Severity Reaction Status Date / Time No Known Drug Allergies Allergy Unknown Verified 09/07/24 19:03 Home Medications Medication Instructions Recorded Confirmed Type potassium gluconate 2.5 mEq tablet 2.5 meq PO QAM 10/12/19 09/07/24 History cyanocobalamin (vitamin B-12) 1,000 mcg PO PM 08/07/21 09/07/24 History 1,000 mcg tablet nitroglycerin 0.4 mg sublingual 0.4 mg sublingual Q5M PRN chest 10/29/22 09/07/24 Rx tablet pain #25 tabs ferrous sulfate 325 mg (65 mg 325 mg PO Q OTHER DAY #30 tabs 10/06/23 09/07/24 Rx iron) tablet gabapentin 100 mg capsule 200 mg (2 x 100 mg) PO DAILY #60 11/01/23 09/07/24 Rx caps atorvastatin 40 mg tablet 40 mg PO .COMPLEX #45 tabs 11/02/23 09/07/24 Rx allopurinol 300 mg tablet 300 mg PO DAILY #90 tabs 12/29/23 09/07/24 Rx metoprolol succinate 100 mg 100 mg PO BID #180 tabs 02/07/24 09/07/24 Rx tablet,extended release 24 hr diltiazem HCl 120 mg 120 mg PO DAILY #90 caps 02/29/24 09/07/24 Rx capsule,extended release 24 hr omeprazole 20 mg capsule,delayed 20 mg PO BID #60 caps 02/29/24 09/07/24 Rx release apixaban 5 mg tablet (Eliquis) 5 mg PO BID #60 tabs 03/29/24 09/07/24 Rx digoxin 125 mcg (0.125 mg) tablet 125 mcg PO DAILY #90 tabs 07/10/24 09/07/24 Rx empagliflozin 10 mg tablet 10 mg PO DAILY #90 tabs 08/06/24 09/07/24 Rx (Jardiance) furosemide 20 mg tablet 20 mg PO DAILY 09/07/24 09/07/24 History metolazone 2.5 mg tablet 2.5 mg PO WK 09/07/24 09/07/24 History Past Med/Surg History Problem List (Updated 09/07/24 @ 19:23 by Tyrone Calix PA-C) Difficulty swallowing KAMRYN (acute kidney injury) Acute heart failure with preserved ejection fraction (HFpEF) Pleural effusion, left Dynamic left ventricular outflow obstruction Aortic regurgitation Mitral regurgitation Mitral stenosis (HFpEF) heart failure with preserved ejection fraction Peripheral edema Restless leg syndrome Pre-diabetes [id number] kidney injury BURNS (dyspnea on exertion) Declined smoking cessation Anemia Obesity Tachycardia (Acute) CKD (chronic kidney disease) (Acute) Atrial flutter (Acute) GERD (gastroesophageal reflux disease) questionable? Anxiety (Chronic) Chronic gout (Chronic) Hidradenitis suppurativa (Chronic) Hyperlipidemia (Chronic) Hypertension (Chronic) Moderate to severe mitral regurgitation Moderate mitral stenosis Mild aortic stenosis Mild aortic insufficiency Medical History (Updated 09/07/24 @ 19:23 by Tyrone Calix PA-C) Anxiety no meds at present > controlled Leaky heart valve just monitoring CKD (chronic kidney disease) follows with Dr. Peralta Hypertension Hyperlipidemia Chronic gout Atrial fibrillation dx 08/06/21 > started on Eliquis and metoprolol yesterday with Dr. Brown > no cardioversions Tobacco abuse Aortic valve sclerosis Surgical History History of colonoscopy History of tooth extraction Family History Father Heart disease Mother Leukemia Denies family history of Ovarian cancer Prostate cancer Myocardial infarction Breast cancer Colorectal cancer Stroke Social History Smoking Status: Current every day smoker Tobacco Type: Cigarettes Age Started Using Tobacco: 20; packs per day: 1; Cigarettes Per Day: 15 cigs per day; Second Hand Exposure: No; Do You Dip or Chew Tobacco: No; Hx Alcohol Use: No Hx Substance Use: No Preferred Language: Somali Communication Ability: Effective Hearing Ability: Normal Distribution Collection Operator Required: No Beliefs That Will Affect Care: None marital status: Current Living Situation: Spouse current occupational status: retired current occupation: self employed How many Children do You have: 1 Feels Safe at Home: Yes Childhood Exposure to Second-Hand Smoke: Yes Diet: regular caffeine: Yes Dental Care, Regularly: Yes Physical Activity Frequency: Daily Seatbelt Use: always Sunscreen Use: No Assistive Devices: None Review of Systems Review of Systems: See HPI above Physical Exam Physical Exam: General: no acute distress; non-toxic appearing; malnourished, cachectic; cooperative; SpO2 94% on RA HEENT: normocephalic, atraumatic; no scleral icterus; PERRLA; vision and hearing grossly intact Neck: supple; positive JVD; no lymphadenopathy; trachea midline Skin: warm, dry without signs of tenting; no cyanosis; no rashes, bruising, lesions, or erythema noted CV: chest wall NTP; RR, bradycardic around 48 bpm; S1/S2 normal; 4/6 systolic ejection murmur auscultated at the second ICS MCL; pulses intact and symmetric at radial, DP, and PT Lungs: no acute respiratory distress; symmetrical chest wall expansion; clear breath sounds across all lung artis w/o adventitious sounds; no wheezing ABD: Soft, NTP; BS present; no rebound/guarding; no distention MSK: no tics or fasciculations; +3 pitting edema in lower extremities bilaterally, nonerythematous Neuro: A&Ox3; normal mood and affect; fluent speech; no focal deficits; sensation intact and symmetric in lower extremities bilaterally Results & Data Results & Data Vital Signs (Past 12 Hours) Vital Signs Temp Pulse Pulse Resp BP BP Pulse Ox 09/07/24 16:47 53 L 09/07/24 16:20 54 L 14 94 09/07/24 16:18 53 L 17 125/67 94 09/07/24 16:18 94 09/07/24 15:22 37.0 C 56 L 17 123/73 97 O2 Del Method 09/07/24 16:47 09/07/24 16:20 Room Air 09/07/24 16:18 Room Air 09/07/24 16:18 Room Air 09/07/24 15:22 Room Air Laboratory Results Abnormal lab results 09/07/24 09/07/24 Range/Units 15:30 16:30 RDW Std Deviation 61.0 H (36.4-46.3) fL RDW Coeff of Katelin 17.2 H (11.5-14.5) % Plt Count 82 L (130-400) K/uL MPV 12.7 H (9.4-12.4) fL Lymph # (Auto) 0.60 L (1.20-3.40) K/uL Platelet Estimate Decreased L (Normal) BUN 92 H (6-23) mg/dl Creatinine 2.86 H (0.6-1.4) mg/dl BUN/Creatinine Ratio 32.2 H (10-20) Glucose 114 H (70-99(Fasting)) mg/dl Total Bilirubin 1.5 H (0.2-1.0) mg/dl Alkaline Phosphatase 110 H (34-104) U/L Troponin I High Sens 120.7 H* (0-20) pg/ml B-Natriuretic Peptide > 4700 H (0-100) pg/ml Diagnostic Findings Chest X-Ray 09/07/24 15:30 XR chest 1V not portable CLINICAL HISTORY: Chest pain, nonspecific COMPARISON STUDY: 07/30/2024 FINDINGS: Stable cardiomegaly with mild pulmonary vascular congestion. Stable moderate left pleural effusion and associated consolidation at the left lower lung. No pneumothorax. IMPRESSION: Stable exam. ACT 112: Negative or not required by law. Electronically signed by: Gustavo Allen M.D. 09/07/2024 3:53 PM ECG Additional Comments: ECG revealed junctional rhythm at 54 bpm; QTc 386 Code Status & VTE Plan Code Status Full code VTE Prophylaxis Plan VTE Prophylaxis will be ordered: Yes Supervising Physician Co-Signing Physician Notes Patient seen and examined, chart reviewed, case discussed with Tyrone Calix, Janet Dias and I agree with the assessment and plan as above except as otherwise noted Labs and images reviewed Carly is a 64-year-old male with past medical history of HFpEF, GERD, CKD who presents with bilateral pleural effusion, lower extremity edema, troponin elevation, and BNP elevation above the limits of detection was recommended for admission for acute CHF. He does have a history of HFpEF and left ventricular outflow obstruction. He has had bilateral leg swelling. Additionally has had poor p.o. intake with solids due to difficulty swallowing over several weeks. His p.o. intake has been poor, is not been able to swallow solids and liquids well. Acute on chronic HFpEF, history of moderate mitral stenosis, severe mitral leaflet MARCELL with dynamic LVOTO, moderate pulmonary hypertension, chronic pleural effusions, moderate mitral stenosis, a flutter on anticoagulation currently on hold With lower extremity edema, mild JVD, markedly elevated BNP, and pleural effusions; although he has had significant weight loss and poor p.o. intake to solids due to his dysphagia. Severe LVH, and severe mitral leaflet MARCELL,history of outflow tract obstruction. Patient is at very high risk of outflow obstruction with any tachyarrhythmia, currently is sinus bradycardia. Patient has been seen [facility] by cardiology recently, with weight loss although part of this is likely protein malnutrition from difficulty swallowing as well as, but nonetheless has had significant weight loss. Chest x-ray with mild edema/congestion but persistent effusions. Eliquis remains held in case thoracentesis is pursued Received 80 mg IV Lasix in the ER. Will reevaluate output and creatinine stability prior to ordering additional doses Troponin mildly elevated repeat similar, suspect demand EKG: Junctional. Patient does have lower extremity symptoms which are disproportionately worse compared to relatively mild x-ray findings. Recommend venous mobilization strategies, SCDs to the thighs to help mobilize fluid along with diuresis Patient is medically complex and follows with Dr. Brown. Has preferred to avoid surgical intervention if at all possible due to concerns regarding renal f ailure/dialysis. KAMRYN baseline creatinine 1.82.3 Due to combination of hypertension, and cardiorenal syndrome Creatinine 2.86 on admission. Hold EL. Diuresis as noted. Dysphagia Patient has had significant weight loss and has had difficulty swallowing solids. Food sometimes get stuck. Slowly worsening. GI consulted for EGD evaluation Agree with assessment management above PG Care Time/CCT Total # of Minutes Spent Total Time Spent with Patient: Total time spent is greater than 50% in coordination of care (as documented) at patient's floor/unit and/or counseling patient: C[place] [address] INT INP/OBS CARE 375MIN Patient Type Established History Comprehensive Exam Comprehensive Medical Decision Making High Complexity Diagnoses Acute heart failure with preserved ejection fraction (HFpEF) I50.31 KAMRYN (acute kidney injury) N17.9 Difficulty swallowing R13.10
[2024-09-07 18:38] LABS: INR 1.2 (0.9-1.1); Partial Thromboplastin Ratio 1.1; Partial Thromboplastin Time 29 Seconds (21-31); Prothrombin Time 13.2 Seconds (9.0-12.0)
[2024-09-07] MEDS ORDERED: POTASSIUM CHLORIDE / WTR 10 MEQ/100 ML PLCT IV SCH (19:15)
[2024-09-07] MEDS: POTASSIUM CHLORIDE 20 MEQ/15 ML UDC PO STA (19:43)
[2024-09-07] MEDS ORDERED: POTASSIUM CHLORIDE 20 MEQ/15 ML UDC PO SCH (21:00)
[2024-09-07] MEDS: METOPROLOL SUCC 50MG EXT REL TAB PO SCH (21:59)
[2024-09-07] MEDS ORDERED: INFLUENZA VACC TS2024-25(6m+)/PF (IIV3) 0.5mL Syr IM ONE (22:04)
[2024-09-07] MEDS: PANTOprazole 40 MG TAB PO SCH (22:25)
[2024-09-08] MEDS: GABAPENTIN 100 MG CAP PO SCH (01:12)
[2024-09-08 06:39] LABS: BUN Creatinine Ratio 33.6 (10-20); Calcium 8.9 mg/dl (8.6-10.3); Creatinine Clr Calc Pharmacy 30.2 ml/min; Potassium 3.7 mmol/L (3.5-5.1)
[2024-09-08] MEDS ORDERED: GABAPENTIN 100 MG CAP PO SCH (09:00)
--- NOTE | 2024-09-08 09:41 | Gastrointestinal Consultation ---
Date of Consultation September 08, 2024 Assessment & Plan (1) Difficulty swallowing: Pill dysphagia is common and is usually not an anatomical issue, some people just have difficulty swallowing pills. However he does have dysphagia to foods as well. With this I do think EGD with dilatation could be considered. However he would need to be off eliquis for a few days. Most importantly, his cardiac status needs to be maximized before we consider a procedure that is fairly elective. This could also be done as an outpatient. At some point he should consider colonoscopy History of Present Illness Reason for Consultation: pill dysphagia Attending Physician: Alex Rider MD History of Present Illness 64 year old man admitted with CHF and distal edema mentioned on admission that he has difficulty swallowing pills (large ones). He has had this going back to childhood. He thinks it has been getting worse over the past few months and now he says he has difficulty with toast and other hard foods. He has heartburn but it is reasonably well controlled with omeprazole twice daily. He does not have to vomit to get food out but the other day he was with his daughter and coughed up a pill that he had taken an hour or so before. He does report having had an EGD by Dr. Benson in 2021 that showed mild esophagitis by report. He has not had a colonoscopy in over 20 years Allergies Allergy/AdvReac Type Severity Reaction Status Date / Time No Known Drug Allergies Allergy Unknown Verified 09/07/24 19:03 Home Medications Medication Instructions Recorded Confirmed Type potassium gluconate 2.5 mEq tablet 2.5 meq PO QAM 10/12/19 09/07/24 History cyanocobalamin (vitamin B-12) 1,000 mcg PO PM 08/07/21 09/07/24 History 1,000 mcg tablet nitroglycerin 0.4 mg sublingual 0.4 mg sublingual Q5M PRN chest 10/29/22 09/07/24 Rx tablet pain #25 tabs ferrous sulfate 325 mg (65 mg 325 mg PO Q OTHER DAY #30 tabs 10/06/23 09/07/24 Rx iron) tablet gabapentin 100 mg capsule 200 mg (2 x 100 mg) PO DAILY #60 11/01/23 09/07/24 Rx caps atorvastatin 40 mg tablet 40 mg PO .COMPLEX #45 tabs 11/02/23 09/07/24 Rx allopurinol 300 mg tablet 300 mg PO DAILY #90 tabs 12/29/23 09/07/24 Rx metoprolol succinate 100 mg 100 mg PO BID #180 tabs 02/07/24 09/07/24 Rx tablet,extended release 24 hr diltiazem HCl 120 mg 120 mg PO DAILY #90 caps 02/29/24 09/07/24 Rx capsule,extended release 24 hr omeprazole 20 mg capsule,delayed 20 mg PO BID #60 caps 02/29/24 09/07/24 Rx release apixaban 5 mg tablet (Eliquis) 5 mg PO BID #60 tabs 03/29/24 09/07/24 Rx digoxin 125 mcg (0.125 mg) tablet 125 mcg PO DAILY #90 tabs 07/10/24 09/07/24 Rx empagliflozin 10 mg tablet 10 mg PO DAILY #90 tabs 08/06/24 09/07/24 Rx (Jardiance) furosemide 20 mg tablet 20 mg PO DAILY 09/07/24 09/07/24 History metolazone 2.5 mg tablet 2.5 mg PO WK 09/07/24 09/07/24 History Patient History Medical History Anxiety no meds at present > controlled Leaky heart valve just monitoring CKD (chronic kidney disease) follows with Dr. Peralta Hypertension Hyperlipidemia Chronic gout Atrial fibrillation dx 08/06/21 > started on Eliquis and metoprolol yesterday with Dr. Brown > no cardioversions Tobacco abuse Aortic valve sclerosis Surgical History History of colonoscopy History of tooth extraction Family History Father Heart disease Mother Leukemia Denies family history of Ovarian cancer Prostate cancer Myocardial infarction Breast cancer Colorectal cancer Stroke Social History Smoking Status: Current every day smoker Tobacco Type: Cigarettes Age Started Using Tobacco: 20; packs per day: 1; Cigarettes Per Day: 15; Second Hand Exposure: No; Do You Dip or Chew Tobacco: No; Hx Alcohol Use: No Hx Substance Use: No Preferred Language: Azeri Communication Ability: Effective Hearing Ability: Normal Oil Program Compliance Specialist Required: No Beliefs That Will Affect Care: None marital status: Current Living Situation: Alone current occupational status: retired current occupation: self employed How many Children do You have: 1 Feels Safe at Home: Yes Safety Concerns: Feels Safe At This Time Childhood Exposure to Second-Hand Smoke: Yes Diet: regular caffeine: Yes Dental Care, Regularly: Yes Physical Activity Frequency: Daily Seatbelt Use: always Sunscreen Use: No Assistive Devices: Glasses Review of Systems Review of Systems: All systems reviewed & are unremarkable except as noted in HPI & below Physical Exam Constitutional: WD/WN, vitals as above Neck: trachea midline, no thyromegaly Respiratory: normal respiratory effort, lungs clear to auscultation Cardiovascular: RRR, no murmur, no edema Gastrointestinal (Abdomen): normal bowel sounds, soft, nontender, no hepatosplenomegaly Musculoskeletal: marked distal edema Results & Data Vital Signs (Past 12 Hours) Vital Signs Temp Pulse Pulse Resp BP Pulse Ox O2 Del Method 09/08/24 08:09 36.4 C L 56 L 18 102/64 96 Room Air 09/08/24 03:31 36.4 C L 55 L 18 105/65 96 Room Air 09/07/24 23:00 45 L 09/07/24 21:40 36.3 C L 48 L 18 115/70 97 Room Air 09/07/24 21:40 Room Air 09/07/24 21:36 09/07/24 21:36 51 L O2 Del Method 09/08/24 08:09 09/08/24 03:31 09/07/24 23:00 09/07/24 21:40 09/07/24 21:40 09/07/24 21:36 Room Air 09/07/24 21:36 Laboratory Results 09/08/24 09/07/24 09/07/24 Range/Units 06:07 23:46 19:26 WBC (4.8-10.8) K/ul RBC (4.70-6.10) M/uL Hgb (14.0-18.0) g/dl Hct (42.0-52.0) % MCV (80.0-100.0) fL MCH (25.0-34.0) pg MCHC (32.0-36.0) g/dL RDW Std Deviation (36.4-46.3) fL RDW Coeff of Katelin (11.5-14.5) % Plt Count (130-400) K/uL MPV (9.4-12.4) fL Immature Gran % (Auto) % Neut % (Auto) % Lymph % (Auto) % Weld % (Auto) % Eos % (Auto) % Baso % (Auto) % Neut # (Auto) (1.40-6.50) K/uL Lymph # (Auto) (1.20-3.40) K/uL Weld # (Auto) (0.11-0.59) K/uL Eos # (Auto) (0.00-0.50) K/uL Baso # (Auto) (0.00-0.20) K/uL Immature Gran # (Auto) (0.01-0.20) K/uL Absolute Nucleated RBC (0.00-0.12) K/uL Nucleated RBC % (auto) % Platelet Estimate (Normal) PT INR APTT PTT Ratio Sodium 138 (136-145) mmol/L Potassium 3.7 (3.5-5.1) mmol/L Chloride 103 (98-107) mmol/L Carbon Dioxide 26 (21-32) mmol/L Anion Gap 9 (3-11) BUN 93 H (6-23) mg/dl Creatinine 2.77 H (0.6-1.4) mg/dl Est Cr Clr Drug Dosing 30.2 ml/min eGFR 24.75 BUN/Creatinine Ratio 33.6 H (10-20) Glucose 115 H (70-99(Fasting)) mg/dl Calcium 8.9 (8.6-10.3) mg/dl Phosphorus (2.5-4.9) mg/dl Magnesium (1.7-2.4) mg/dl Total Bilirubin (0.2-1.0) mg/dl AST (13-39) U/L ALT (7-52) U/L Alkaline Phosphatase (34-104) U/L Troponin I High Sens 130.7 H* 122.1 H* (0-20) pg/ml B-Natriuretic Peptide (0-100) pg/ml Total Protein (6.0-8.3) gm/dl Albumin (3.4-5.0) gm/dl Globulin (2.5-4.0) gm/dl Albumin/Globulin Ratio (0.9-2) Digoxin 2.3 H (0.8-2.0) ng/ml 09/07/24 09/07/24 09/07/24 Range/Units 17:41 17:40 16:30 WBC (4.8-10.8) K/ul RBC (4.70-6.10) M/uL Hgb (14.0-18.0) g/dl Hct (42.0-52.0) % MCV (80.0-100.0) fL MCH (25.0-34.0) pg MCHC (32.0-36.0) g/dL RDW Std Deviation (36.4-46.3) fL RDW Coeff of Katelin (11.5-14.5) % Plt Count (130-400) K/uL MPV (9.4-12.4) fL Immature Gran % (Auto) % Neut % (Auto) % Lymph % (Auto) % Weld % (Auto) % Eos % (Auto) % Baso % (Auto) % Neut # (Auto) (1.40-6.50) K/uL Lymph # (Auto) (1.20-3.40) K/uL Weld # (Auto) (0.11-0.59) K/uL Eos # (Auto) (0.00-0.50) K/uL Baso # (Auto) (0.00-0.20) K/uL Immature Gran # (Auto) (0.01-0.20) K/uL Absolute Nucleated RBC (0.00-0.12) K/uL Nucleated RBC % (auto) % Platelet Estimate (Normal) PT 13.2 H INR 1.2 H APTT 29 PTT Ratio 1.1 Sodium (136-145) mmol/L Potassium (3.5-5.1) mmol/L Chloride (98-107) mmol/L Carbon Dioxide (21-32) mmol/L Anion Gap (3-11) BUN (6-23) mg/dl Creatinine (0.6-1.4) mg/dl Est Cr Clr Drug Dosing ml/min eGFR BUN/Creatinine Ratio (10-20) Glucose (70-99(Fasting)) mg/dl Calcium (8.6-10.3) mg/dl Phosphorus (2.5-4.9) mg/dl Magnesium (1.7-2.4) mg/dl Total Bilirubin (0.2-1.0) mg/dl AST (13-39) U/L ALT (7-52) U/L Alkaline Phosphatase (34-104) U/L Troponin I High Sens 129.4 H* (0-20) pg/ml B-Natriuretic Peptide > 4700 H (0-100) pg/ml Total Protein (6.0-8.3) gm/dl Albumin (3.4-5.0) gm/dl Globulin (2.5-4.0) gm/dl Albumin/Globulin Ratio (0.9-2) Digoxin (0.8-2.0) ng/ml 09/07/24 Range/Units 15:30 WBC 7.28 (4.8-10.8) K/ul RBC 4.72 (4.70-6.10) M/uL Hgb 15.5 (14.0-18.0) g/dl Hct 46.1 (42.0-52.0) % MCV 97.7 (80.0-100.0) fL MCH 32.8 (25.0-34.0) pg MCHC 33.6 (32.0-36.0) g/dL RDW Std Deviation 61.0 H (36.4-46.3) fL RDW Coeff of Katelin 17.2 H (11.5-14.5) % Plt Count 82 L (130-400) K/uL MPV 12.7 H (9.4-12.4) fL Immature Gran % (Auto) 0.5 % Neut % (Auto) 82.9 % Lymph % (Auto) 8.2 % Weld % (Auto) 6.9 % Eos % (Auto) 0.8 % Baso % (Auto) 0.7 % Neut # (Auto) 6.03 (1.40-6.50) K/uL Lymph # (Auto) 0.60 L (1.20-3.40) K/uL Weld # (Auto) 0.50 (0.11-0.59) K/uL Eos # (Auto) 0.06 (0.00-0.50) K/uL Baso # (Auto) 0.05 (0.00-0.20) K/uL Immature Gran # (Auto) 0.04 (0.01-0.20) K/uL Absolute Nucleated RBC 0.02 (0.00-0.12) K/uL Nucleated RBC % (auto) 0.3 % Platelet Estimate Decreased L (Normal) PT Cancelled INR Cancelled APTT Cancelled PTT Ratio Cancelled Sodium 140 (136-145) mmol/L Potassium 3.7 (3.5-5.1) mmol/L Chloride 101 (98-107) mmol/L Carbon Dioxide 28 (21-32) mmol/L Anion Gap 11 (3-11) BUN 92 H (6-23) mg/dl Creatinine 2.86 H (0.6-1.4) mg/dl Est Cr Clr Drug Dosing 29.3 ml/min eGFR 23.82 BUN/Creatinine Ratio 32.2 H (10-20) Glucose 114 H (70-99(Fasting)) mg/dl Calcium 9.1 (8.6-10.3) mg/dl Phosphorus 4.7 (2.5-4.9) mg/dl Magnesium 2.2 (1.7-2.4) mg/dl Total Bilirubin 1.5 H (0.2-1.0) mg/dl AST 19 (13-39) U/L ALT 14 (7-52) U/L Alkaline Phosphatase 110 H (34-104) U/L Troponin I High Sens 120.7 H* (0-20) pg/ml B-Natriuretic Peptide (0-100) pg/ml Total Protein 6.3 (6.0-8.3) gm/dl Albumin 3.5 (3.4-5.0) gm/dl Globulin 2.8 (2.5-4.0) gm/dl Albumin/Globulin Ratio 1.3 (0.9-2) Digoxin (0.8-2.0) ng/ml Diagnostic Findings Chest X-Ray 09/07/24 15:30 XR chest 1V not portable CLINICAL HISTORY: Chest pain, nonspecific COMPARISON STUDY: 07/30/2024 FINDINGS: Stable cardiomegaly with mild pulmonary vascular congestion. Stable moderate left pleural effusion and associated consolidation at the left lower lung. No pneumothorax. IMPRESSION: Stable exam. ACT 112: Negative or not required by law. Electronically signed by: Gustavo Allen M.D. 09/07/2024 3:53 PM
[2024-09-08] MEDS: NICOTINE 14 MG/24 HR PATCH TD SCH (09:52)
[2024-09-08] MEDS: DIGOXIN 0.125 MG TAB PO SCH (09:52)
[2024-09-08] MEDS: allopurinoL 300 MG TAB PO SCH (09:53)
[2024-09-08] MEDS: dilTIAZem HCL 120 MG CAPCR PO SCH (09:54)
[2024-09-08] MEDS: FUROSEMIDE 40 MG/4 ML VIAL IV ONE ×2 (12:51→14:08)
--- NOTE | 2024-09-08 12:52 | Nephrology Consultation ---
Date of Consultation September 08, 2024 Assessment & Plan (1) KAMRYN (acute kidney injury): Non-oliguric. KAMRYN consistent with cardiorenal syndrome. Electrolytes acceptable. Volume status hypervolemic. No emergent indication for dialysis. Thankfully, digoxin level appears to be improving. Digoxin will be held due to evidence of toxicity. Levels will be monitored routinely. UA/microscopy and random urine sodium requested now. Document strict I/O's. Repeat metabolic profile tomorrow AM. Hold empagliflozin. Avoid RAASi. Continue diuretics to encourage slightly negative fluid balance. (2) Cardiorenal syndrome: Complex history. Progressive symptoms. (3) Acute heart failure with preserved ejection fraction (HFpEF): Cardiology consultation pending. Diuretics to encourage gentle diuresis. Suspect AV whitney blocking medications will need to be adjusted. Digoxin has been held. Avoid RAASi. (4) CKD (chronic kidney disease): Chronic kidney disease IIIb-IV A3. CKD attributed to arterionephrosclerosis, hypertension, and cardiorenal syndrome. No recent imaging. Potential future indications for [employer]EDGE [employer]ER were reviewed today. (5) Atrial flutter: Remains on diltiazem + metoprolol. Heart rate 45-50 bpm on telemetry. Digoxin level toxic. The medication has been held. (6) Moderate to severe mitral regurgitation: Suggest updating a transthoracic echocardiogram. I will defer to cardiology regarding management moving forward. (7) Dynamic left ventricular outflow obstruction: (8) Digoxin toxicity: History of Present Illness Reason for Consultation: ? Cardiorenal syndrome Requesting Physician: Alex Rider MD Attending Physician: Alex Rider MD History of Present Illness Mr. Carly Yee is a 64 year-old male with chronic kidney disease who I know well from the outpatient nephrology clinic. Carly follows with me in the [facility] nephrology clinic in [facility]. Our last clinic visit was in April. At that time, kidney function was stable with a baseline creatinine of 1.8-2.3 mg/dL. Proteinuria is high grade with a MACR >5000 mg/g. Carly's CKD has been attributed to hypertension, glomerular arteriosclerosis, and severe cardiorenal syndrome. He has never had a kidney biopsy. Carly is experiencing an unfortunate progressive frailty and worsening overall health. He has cachexia or sarcopenia with edema. He has significant persistent lower extremity edema and notable progressive weakness. These symptoms are the primary reasons that he presented to the [facility] for evaluation yesterday. Carly describes feeling incr easingly weak and having difficulty with some basic activities. He is also experiencing some difficulty swallowing some medications. He notes that despite increasing the dose of his digoxin and adding metolazone during follow up with Dr. Brown in the cardiology clinic in early July, his condition has worsened. Carly has understandable anxiety regarding his health. A lot of this anxiety stems from family members who are dealing with kidney and heart problems. His younger brother was told that he has a "hardening of the heart wall" which can run in families. His younger sister also developed hardening of her heart wall. She required placement of a cardiac pacemaker following a procedure to reduce the tissue in her heart wall. His older sister recently started on dialysis following a procedure for her heart which involved valve replacement surgery. Carly also notes that his father developed ESKD following a cardiac procedure. Carly had told me at our last visit that his sister and brother were both diagnosed with hypertrophic cardiomyopathy. Carly had a LETY completed in December demonstrating severe concentric LVH with severe LVOT. Severe L atrial dilation noted. Mild aortic stenosis appreciated. Moderate to severe mitral calcification. Severe mitral regurgitation. RVSP 50-55%. Medical history is notable for SVT/atrial fibrillation-->permanent atrial fibrillation/flutter, mitral regurgitation, aortic stenosis/LVOT obstruction, hypertension, hyperlipidemia, anxiety, gout, smoker, and hidradenitis suppurativa. Evaluation in the ER included an EKG demonstrating a junctional rhythm at 50 bpm. CXR demonstrating cardiomegaly and pulmonary vascular congestion. 80 mg IV furosemide was provided in the ER. I/O's have not been documented. empagliflozin has been held. Serum creatinine was 2.38 mg/dL in July. Creatinine 2.86 mg/dL yesterday and 2.77 mg/dL this AM. Carly is non-oliguric. Allergies Allergy/AdvReac Type Severity Reaction Status Date / Time No Known Drug Allergies Allergy Unknown Verified 09/07/24 19:03 Home Medications Medication Instructions Recorded Confirmed Type potassium gluconate 2.5 mEq tablet 2.5 meq PO QAM 10/12/19 09/07/24 History cyanocobalamin (vitamin B-12) 1,000 mcg PO PM 08/07/21 09/07/24 History 1,000 mcg tablet nitroglycerin 0.4 mg sublingual 0.4 mg sublingual Q5M PRN chest 10/29/22 09/07/24 Rx tablet pain #25 tabs ferrous sulfate 325 mg (65 mg 325 mg PO Q OTHER DAY #30 tabs 10/06/23 09/07/24 Rx iron) tablet gabapentin 100 mg capsule 200 mg (2 x 100 mg) PO DAILY #60 11/01/23 09/07/24 Rx caps atorvastatin 40 mg tablet 40 mg PO .COMPLEX #45 tabs 11/02/23 09/07/24 Rx allopurinol 300 mg tablet 300 mg PO DAILY #90 tabs 12/29/23 09/07/24 Rx metoprolol succinate 100 mg 100 mg PO BID #180 tabs 02/07/24 09/07/24 Rx tablet,extended release 24 hr diltiazem HCl 120 mg 120 mg PO DAILY #90 caps 02/29/24 09/07/24 Rx capsule,extended release 24 hr omeprazole 20 mg capsule,delayed 20 mg PO BID #60 caps 02/29/24 09/07/24 Rx release apixaban 5 mg tablet (Eliquis) 5 mg PO BID #60 tabs 03/29/24 09/07/24 Rx digoxin 125 mcg (0.125 mg) tablet 125 mcg PO DAILY #90 tabs 07/10/24 09/07/24 Rx empagliflozin 10 mg tablet 10 mg PO DAILY #90 tabs 08/06/24 09/07/24 Rx (Jardiance) furosemide 20 mg tablet 20 mg PO DAILY 09/07/24 09/07/24 History metolazone 2.5 mg tablet 2.5 mg PO WK 09/07/24 09/07/24 History Patient History Medical History Anxiety no meds at present > controlled Leaky heart valve just monitoring CKD (chronic kidney disease) follows with Dr. Peralta Hypertension Hyperlipidemia Chronic gout Atrial fibrillation dx 08/06/21 > started on Eliquis and metoprolol yesterday with Dr. Brown > no cardioversions Tobacco abuse Aortic valve sclerosis Surgical History History of colonoscopy History of tooth extraction Family History Father Heart disease Mother Leukemia Denies family history of Ovarian cancer Prostate cancer Myocardial infarction Breast cancer Colorectal cancer Stroke Social History Smoking Status: Current every day smoker Tobacco Type: Cigarettes Age Started Using Tobacco: 20; packs per day: 1; Cigarettes Per Day: 15; Second Hand Exposure: No; Do You Dip or Chew Tobacco: No; Hx Alcohol Use: No Hx Substance Use: No Preferred Language: Pashto Communication Ability: Effective Hearing Ability: Normal Cheesemaker Required: No Beliefs That Will Affect Care: None marital status: Current Living Situation: Alone current occupational status: retired current occupation: self employed How many Children do You have: 1 Feels Safe at Home: Yes Safety Concerns: Feels Safe At This Time Childhood Exposure to Second-Hand Smoke: Yes Diet: regular caffeine: Yes Dental Care, Regularly: Yes Physical Activity Frequency: Daily Seatbelt Use: always Sunscreen Use: No Assistive Devices: Glasses Review of Systems Review of Systems: All systems reviewed & are unremarkable except as noted in HPI & below Constitutional: + fatigue, + weakness and + weight loss; no anorexia Ear, Nose, Mouth, Throat: + dysphagia (difficulty with large pills ); no sore throat and no hoarseness Respiratory: + dyspnea on exertion; no cough and no h emoptysis Cardiovascular: + dyspnea on exertion, + orthopnea, + li ghtheadedness and + edema; no chest pain, no palpitations and no syncope Gastrointestinal: + diarrhea/loose stools Genitourinary: no decreased urination Neurologic: + restless legs Physical Exam Constitutional: + thin and + frail appearing; no acute d istress Eyes: no scleral abnormality and no corneal abnormality sallow complexion; facial thinning Neck: normal visual inspection and trachea midline Respiratory: normal respiratory effort Auscultation: lungs clear to auscultation bilaterally Cardiovascular: Rate/Rhythm: + bradycardic Heart Sounds: normal S1, normal S2 and + murmur Vessels: + JVD Extremities: + edema Musculoskeletal: Extremities: no cyanosis and no clubbing Skin: + turgor decreased; no jaundice Neurologic: Motor/Sensory: no tremor and no asterixis Psychiatric: Orientation: alert and oriented x 3 Results & Data Vital Signs (Past 12 Hours) Vital Signs Temp Pulse Pulse Resp BP Pulse Ox O2 Del Method 09/08/24 11:11 36.4 C L 49 L 19 113/60 91 Room Air 09/08/24 09:52 57 L 09/08/24 08:09 36.4 C L 56 L 18 102/64 96 Room Air 09/08/24 05:50 52 L 09/08/24 03:31 36.4 C L 55 L 18 105/65 96 Room Air Laboratory Results Laboratory Results - last 24 hr 09/07/24 09/07/24 09/07/24 15:30 16:30 17:40 WBC 7.28 RBC 4.72 Hgb 15.5 Hct 46.1 MCV 97.7 MCH 32.8 MCHC 33.6 RDW Std Deviation 61.0 H RDW Coeff of Katelin 17.2 H Plt Count 82 L MPV 12.7 H Immature Gran % (Auto) 0.5 Neut % (Auto) 82.9 Lymph % (Auto) 8.2 [place] % (Auto) 6.9 Eos % (Auto) 0.8 Baso % (Auto) 0.7 Neut # (Auto) 6.03 Lymph # (Auto) 0.60 L [place] # (Auto) 0.50 Eos # (Auto) 0.06 Baso # (Auto) 0.05 Immature Gran # (Auto) 0.04 Absolute Nucleated RBC 0.02 Nucleated RBC % (auto) 0.3 Platelet Estimate Decreased L PT Cancelled 13.2 H INR Cancelled 1.2 H APTT Cancelled 29 PTT Ratio Cancelled 1.1 Sodium 140 Potassium 3.7 Chloride 101 Carbon Dioxide 28 Anion Gap 11 BUN 92 H Creatinine 2.86 H Est Cr Clr Drug Dosing 29.3 eGFR 23.82 BUN/Creatinine Ratio 32.2 H Glucose 114 H Calcium 9.1 Phosphorus 4.7 Magnesium 2.2 Total Bilirubin 1.5 H AST 19 ALT 14 Alkaline Phosphatase 110 H Troponin I High Sens 120.7 H* B-Natriuretic Peptide > 4700 H Total Protein 6.3 Albumin 3.5 Globulin 2.8 Albumin/Globulin Ratio 1.3 Digoxin 09/07/24 09/07/24 09/07/24 17:41 19:26 23:46 WBC RBC Hgb Hct MCV MCH MCHC RDW Std Deviation RDW Coeff of Katelin Plt Count MPV Immature Gran % (Auto) Neut % (Auto) Lymph % (Auto) [place] % (Auto) Eos % (Auto) Baso % (Auto) Neut # (Auto) Lymph # (Auto) [place] # (Auto) Eos # (Auto) Baso # (Auto) Immature Gran # (Auto) Absolute Nucleated RBC Nucleated RBC % (auto) Platelet Estimate PT INR APTT PTT Ratio Sodium Potassium Chloride Carbon Dioxide Anion Gap BUN Creatinine Est Cr Clr Drug Dosing eGFR BUN/Creatinine Ratio Glucose Calcium Phosphorus Magnesium Total Bilirubin AST ALT Alkaline Phosphatase Troponin I High Sens 129.4 H* 122.1 H* B-Natriuretic Peptide Total Protein Albumin Globulin Albumin/Globulin Ratio Digoxin 2.3 H 09/08/24 09/08/24 06:07 11:22 WBC RBC Hgb Hct MCV MCH MCHC RDW Std Deviation RDW Coeff of Katelin Plt Count MPV Immature Gran % (Auto) Neut % (Auto) Lymph % (Auto) [place] % (Auto) Eos % (Auto) Baso % (Auto) Neut # (Auto) Lymph # (Auto) [place] # (Auto) Eos # (Auto) Baso # (Auto) Immature Gran # (Auto) Absolute Nucleated RBC Nucleated RBC % (auto) Platelet Estimate PT INR APTT PTT Ratio Sodium 138 Potassium 3.7 Chloride 103 Carbon Dioxide 26 Anion Gap 9 BUN 93 H Creatinine 2.77 H Est Cr Clr Drug Dosing 30.2 eGFR 24.75 BUN/Creatinine Ratio 33.6 H Glucose 115 H Calcium 8.9 Phosphorus Magnesium Total Bilirubin AST ALT Alkaline Phosphatase Troponin I High Sens 130.7 H* B-Natriuretic Peptide Total Protein Albumin Globulin Albumin/Globulin Ratio Digoxin 2.0 Diagnostic Findings XR chest 1V not portable COMPARISON STUDY: 07/30/2024 FINDINGS: Stable cardiomegaly with mild pulmonary vascular congestion. Stable moderate left pleural effusion and associated consolidation at the left lower lung. No pneumothorax. IMPRESSION: Stable exam. PG Care Time/CCT Total # of Minutes Spent Total Time Spent with Patient: Total time spent is greater than 50% in coordination of care (as documented) at patient's floor/unit and/or counseling patient: Coding Level of Care Code 69412 IN/OBS CONSULT LVL 5,80M Diagnoses KAMRYN (acute kidney injury) N17.9 Cardiorenal syndrome I13.10 Acute heart failure with preserved ejection fraction (HFpEF) I50.31 CKD (chronic kidney disease) N18.9 Chronic kidney disease stage: unspecified stage Atrial flutter I48.92 Atrial flutter type: unspecified Moderate to severe mitral regurgitation I34.0 Dynamic left ventricular outflow obstruction I51.89 Digoxin toxicity T46.0X1A (4) CKD (chronic kidney disease) Chronic kidney disease stage: unspecified stage Qualified Code(s): N18.9 - Chronic kidney disease, unspecified (5) Atrial flutter Atrial flutter type: unspecified Qualified Code(s): I48.92 - Unspecified atrial flutter
--- NOTE | 2024-09-08 13:33 | Hospitalist Progress Note ---
Date of Service September 08, 2024 Assessment & Plan (1) Acute heart failure with preserved ejection fraction (HFpEF): (2) KAMRYN (acute kidney injury): (3) Difficulty swallowing: Plan #Acute CHF CXR on arrival revealed cardiomegaly with mild pulmonary vascular congestion LETY on 12/18/2023 revealed LVEF >70%, with severe left atrial dilation and moderate to severe mitral annular calcification BNP >4700 on arrival (similar to prior) Lasix 80 mg IV x 1 given in the ED Patient had good clinical and diuretic response to the Lasix in the emergency room Will give him another dose of 80 mg IV x 1 now Monitor daily weights Monitor BMP Monitor I's and O's Cardiology and nephrology involved Patient may need further cardiac evaluation during this hospital stay #KAMRYN On admission, BUN 92, creatinine 2.86 (baseline around 2.3, but progressively worsening) Nephrology consulted Creatinine 2.7 in response to 80 mg of IV Lasix he received yesterday Will give him another 80 mg of IV Lasix today Monitor BMP closely #Elevated troponin Troponin 120->129; trend to peak Patient reports he is chest pain-free at time of admission Suspect secondary to acute heart failure, demand ischemia Continuous telemetry monitoring #Difficulty swallowing Progressive worsening dysphagia of pills over the past 2 months Gastroenterology consulted GI planning on outpatient EGD and possibly colonoscopy after acute issues resolved #Paroxysmal atrial fibrillation Was bradycardic this morning with pauses Hold metoprolol and Cardizem Hold digoxin Digoxin level ordered, pending Hold Eliquis in the event that patient requires thoracentesis #Tobacco use Nicotine patch Continue to encourage cessation Full code Heart healthy, low-sodium diet (1200 mL fluid restriction) VTE PPx: Thigh-high SCDs; hold Eliquis Admission and Anticipated Discharge Date Admission Date: September 07, 2024 Subjective Patient was seen and examined at 9:40 AM. He says that he urinated quite a bit in response to the IV Lasix he got in the emergency room. His leg swelling has slightly improved. This nurse notified me of bradycardia and pauses on telemetry. Metoprolol and Cardizem were held this morning. Review of Systems Review of Systems: All systems reviewed & are unremarkable except as noted in Subjective Physical Exam 2 Physical Exam: General: Awake, conversant Heart: S1, S2/regular rate and rhythm, no murmur rubs or gallops Lungs: Bibasilar crackles. Normal effort Abdomen: Soft/nontender/nondistended. No hepatosplenomegaly Extremities: No clubbing/cyanosis. 2-3+ pitting bilateral edema Behavior: Appropriate, cooperative Results & Data Results & Data Vital Signs (Past 12 Hours) Vital Signs Temp Pulse Pulse Resp BP Pulse Ox O2 Del Method 09/08/24 11:11 36.4 C L 49 L 19 113/60 91 Room Air 09/08/24 09:52 57 L 09/08/24 08:09 36.4 C L 56 L 18 102/64 96 Room Air 09/08/24 05:50 52 L 09/08/24 03:31 36.4 C L 55 L 18 105/65 96 Room Air Laboratory Results Abnormal lab results 09/07/24 09/07/24 09/07/24 Range/Units 15:30 16:30 17:40 RDW Std Deviation 61.0 H (36.4-46.3) fL RDW Coeff of Katelin 17.2 H (11.5-14.5) % Plt Count 82 L (130-400) K/uL MPV 12.7 H (9.4-12.4) fL Lymph # (Auto) 0.60 L (1.20-3.40) K/uL Platelet Estimate Decreased L (Normal) PT 13.2 H (9.0-12.0) Seconds INR 1.2 H (0.9-1.1) BUN 92 H (6-23) mg/dl Creatinine 2.86 H (0.6-1.4) mg/dl BUN/Creatinine Ratio 32.2 H (10-20) Glucose 114 H (70-99(Fasting)) mg/dl Total Bilirubin 1.5 H (0.2-1.0) mg/dl Alkaline Phosphatase 110 H (34-104) U/L Troponin I High Sens 120.7 H* (0-20) pg/ml B-Natriuretic Peptide > 4700 H (0-100) pg/ml Digoxin (0.8-2.0) ng/ml 09/07/24 09/07/24 09/07/24 Range/Units 17:41 19:26 23:46 RDW Std Deviation (36.4-46.3) fL RDW Coeff of Katelin (11.5-14.5) % Plt Count (130-400) K/uL MPV (9.4-12.4) fL Lymph # (Auto) (1.20-3.40) K/uL Platelet Estimate (Normal) PT (9.0-12.0) Seconds INR (0.9-1.1) BUN (6-23) mg/dl Creatinine (0.6-1.4) mg/dl BUN/Creatinine Ratio (10-20) Glucose (70-99(Fasting)) mg/dl Total Bilirubin (0.2-1.0) mg/dl Alkaline Phosphatase (34-104) U/L Troponin I High Sens 129.4 H* 122.1 H* (0-20) pg/ml B-Natriuretic Peptide (0-100) pg/ml Digoxin 2.3 H (0.8-2.0) ng/ml 09/08/24 Range/Units 06:07 RDW Std Deviation (36.4-46.3) fL RDW Coeff of Katelin (11.5-14.5) % Plt Count (130-400) K/uL MPV (9.4-12.4) fL Lymph # (Auto) (1.20-3.40) K/uL Platelet Estimate (Normal) PT (9.0-12.0) Seconds INR (0.9-1.1) BUN 93 H (6-23) mg/dl Creatinine 2.77 H (0.6-1.4) mg/dl BUN/Creatinine Ratio 33.6 H (10-20) Glucose 115 H (70-99(Fasting)) mg/dl Total Bilirubin (0.2-1.0) mg/dl Alkaline Phosphatase (34-104) U/L Troponin I High Sens 130.7 H* (0-20) pg/ml B-Natriuretic Peptide (0-100) pg/ml Digoxin (0.8-2.0) ng/ml Diagnostic Findings Chest X-Ray 09/07/24 15:30 XR chest 1V not portable CLINICAL HISTORY: Chest pain, nonspecific COMPARISON STUDY: 07/30/2024 FINDINGS: Stable cardiomegaly with mild pulmonary vascular congestion. Stable moderate left pleural effusion and associated consolidation at the left lower lung. No pneumothorax. IMPRESSION: Stable exam. ACT 112: Negative or not required by law. Electronically signed by: Gustavo Allen M.D. 09/07/2024 3:53 PM PG Care Time/CCT Total # of Minutes Spent Total Time Spent with Patient: Total time spent is greater than 50% in coordination of care (as documented) at patient's floor/unit and/or counseling patient: Coding Level of Care Code 56835 SUB INP/OBS CARE 2/35MIN Diagnoses Acute heart failure with preserved ejection fraction (HFpEF) I50.31 KAMRYN (acute kidney injury) N17.9 Difficulty swallowing R13.10
--- NOTE | 2024-09-08 14:26 | Cardiology Consultation ---
Date of Consultation September 08, 2024 Assessment & Plan (1) (HFpEF) heart failure with preserved ejection fraction: (2) Junctional bradycardia: (3) Severe mitral regurgitation: (4) Moderate mitral stenosis: (5) Dynamic left ventricular outflow obstruction: (6) Mild aortic stenosis: (7) CKD (chronic kidney disease): (8) Digoxin toxicity: (9) Pleural effusion, left: Plan 64 a man with longstanding and complex valvular heart disease and longstanding chronic renal insufficiency who has been borderline compensated for some time and now presents with evidence of volume retention/HFpEF complicated by junctional bradycardic rhythm (digoxin level mildly supratherapeutic), persistent left pleural effusion, and mildly progressive renal insufficiency. I have discussed with him numerous times more aggressive intervention, but he has never felt poorly enough to feel that the risk of interventions (such as cardiac catheterization) potentially resulting in renal failure would be acceptable to him (his sister is on hemodialysis). However, multiple attempts at medical management appear to be failing and even at the risk of renal failure it would seem that he should proceed with a complete evaluation and consideration of valvular surgery if possible. This would involve a repeat transesophageal echocardiogram and cardiac catheterization to reevaluate valves and assess the degree of coronary artery disease (if present). I will discuss this further over the next day or so, if he agrees to further evaluation ultimately he will require evaluation at a tertiary center, we will also discuss the degree of workup here versus tertiary center (likely [facility]). In the meantime, would hope to optimize hemodynamics (aim heart rate 70-80 bpm) by holding negative chronotropic medications (metoprolol, diltiazem, digoxin) until his junctional escape rhythm resolves while gradually diuresing with close attention to his renal function. Could utilize PRN metoprolol tartrate for any transient tachycardia once his junctional rhythm resolves, then gradually reintroduce diltiazem and/or digoxin as his heart rate/BP allow. I will continue to follow along closely. History of Present Illness Reason for Consultation: Acute CHF; potential cardiorenal syndrome Requesting Physician: Alex Rider MD Attending Physician: Alex Rider MD History of Present Illness 64-year-old man with HFpEF, significant mixed mitral and aortic valvular disease, more recently noted dynamic left ventricular outflow tract obstruction, permanent atrial flutter (diltiazem/metoprolol/apixaban), chronic kidney disease(creatinine range 1.852.4 over the past year), DM, gout, and other medical problems who is well-known to me from multiple cardiology outpatient encounters, admitted yesterday with progressive weakness, leg swelling, and dyspnea on minimal exertion. Mild chronic orthopnea, no PND. No chest pain, troponin curve was flat ([id number] on 4 draws). ECG showed underlying atrial fibrillation with an apparent junctional escape rhythm at 54 bpm. Telemetry with similar appearance, occasional brief pauses (up to 2 seconds). Transesophageal echo December 2023 showed EF greater than 70% with severe LVH, mild , severe dynamic LVOT obstruction, moderate MS with severe MR, mild to moderate AI, and moderate pulmonary hypertension. At the time my evaluation, he was comfortable at rest. Allergies Allergy/AdvReac Type Severity Reaction Status Date / Time No Known Drug Allergies Allergy Unknown Verified 09/07/24 19:03 Home Medications Medication Instructions Recorded Confirmed Type potassium gluconate 2.5 mEq tablet 2.5 meq PO QAM 10/12/19 09/07/24 History cyanocobalamin (vitamin B-12) 1,000 mcg PO PM 08/07/21 09/07/24 History 1,000 mcg tablet nitroglycerin 0.4 mg sublingual 0.4 mg sublingual Q5M PRN chest 10/29/22 09/07/24 Rx tablet pain #25 tabs ferrous sulfate 325 mg (65 mg 325 mg PO Q OTHER DAY #30 tabs 10/06/23 09/07/24 Rx iron) tablet gabapentin 100 mg capsule 200 mg (2 x 100 mg) PO DAILY #60 11/01/23 09/07/24 Rx caps atorvastatin 40 mg tablet 40 mg PO .COMPLEX #45 tabs 11/02/23 09/07/24 Rx allopurinol 300 mg tablet 300 mg PO DAILY #90 tabs 12/29/23 09/07/24 Rx metoprolol succinate 100 mg 100 mg PO BID #180 tabs 02/07/24 09/07/24 Rx tablet,extended release 24 hr diltiazem HCl 120 mg 120 mg PO DAILY #90 caps 02/29/24 09/07/24 Rx capsule,extended release 24 hr omeprazole 20 mg capsule,delayed 20 mg PO BID #60 caps 02/29/24 09/07/24 Rx release apixaban 5 mg tablet (Eliquis) 5 mg PO BID #60 tabs 03/29/24 09/07/24 Rx digoxin 125 mcg (0.125 mg) tablet 125 mcg PO DAILY #90 tabs 07/10/24 09/07/24 Rx empagliflozin 10 mg tablet 10 mg PO DAILY #90 tabs 08/06/24 09/07/24 Rx (Jardiance) furosemide 20 mg tablet 20 mg PO DAILY 09/07/24 09/07/24 History metolazone 2.5 mg tablet 2.5 mg PO WK 09/07/24 09/07/24 History Patient History Medical History Anxiety no meds at present > controlled Leaky heart valve just monitoring CKD (chronic kidney disease) follows with Dr. Peralta Hypertension Hyperlipidemia Chronic gout Atrial fibrillation dx 08/06/21 > started on Eliquis and metoprolol yesterday with Dr. Brown > no cardioversions Tobacco abuse Aortic valve sclerosis Surgical History History of colonoscopy History of tooth extraction Family History Father Heart disease Mother Leukemia Denies family history of Ovarian cancer Prostate cancer Myocardial infarction Breast cancer Colorectal cancer Stroke Social History Smoking Status: Current every day smoker Tobacco Type: Cigarettes Age Started Using Tobacco: 20; packs per day: 1; Cigarettes Per Day: 15; Second Hand Exposure: No; Do You Dip or Chew Tobacco: No; Hx Alcohol Use: No Hx Substance Use: No Preferred Language: Syriac Communication Ability: Effective Hearing Ability: Normal Gui Developer Required: No Beliefs That Will Affect Care: None marital status: Current Living Situation: Alone current occupational status: retired current occupation: self employed How many Children do You have: 1 Feels Safe at Home: Yes Safety Concerns: Feels Safe At This Time Childhood Exposure to Second-Hand Smoke: Yes Diet: regular caffeine: Yes Dental Care, Regularly: Yes Physical Activity Frequency: Daily Seatbelt Use: always Sunscreen Use: No Assistive Devices: Glasses Physical Exam Physical Exam: Adult white male in no acute distress. BP 113/60 mmHg. Pulse in the 50 bpm range and regular. Respirations 19 and unlabored. Skin: No ecchymosis or generalized lesions. Stasis changes both lower extremities. HEENT: Benign. Neck: Jugular venous pulse 1/[address] to the angle of the jaw at 90 with prominent "v" waves. No carotid bruits. Lungs: Dullness and few crackles left base, generally clear. Cardiac: Irregular rhythm. 3/6 systolic ejection murmur right upper sternal border radiating to the carotids (no obvious change in murmur upon standing), moderately reduced aortic closure sound, 3/6 apical holosystolic murmur radiating to the right sternal border and axilla. No diastolic murmur appreciated. Accentuated S1. No gallop or rub. Abdomen: benign. Extremities: Brisk radial and dorsalis pedis pulses. Good capillary refill. 2-3+ pretibial edema. Neurologic: Normal affect and conversation, nonfocal. Results & Data Vital Signs (Past 12 Hours) Vital Signs Temp Pulse Pulse Resp BP Pulse Ox O2 Del Method 09/08/24 11:11 97.5 F L 49 L 19 113/60 91 Room Air 09/08/24 09:52 57 L 09/08/24 08:09 97.5 F L 56 L 18 102/64 96 Room Air 09/08/24 05:50 52 L 09/08/24 03:31 97.5 F L 55 L 18 105/65 96 Room Air Laboratory Results Normal WBC, hemoglobin 15.5, platelet count 82,000. Normal electrolytes, BUN 93, creatinine 2.77. PG Care Time/CCT Total # of Minutes Spent Total Time Spent with Patient: Total time spent is greater than 50% in coordination of care (as documented) at patient's floor/unit and/or counseling patient: Coding Level of Care Code 93539 IN/OBS CONSULT LVL 5,80M Diagnoses Chronic heart failure with preserved ejection fraction I50.32 Heart failure chronicity: chronic Junctional bradycardia R00.1 Severe mitral regurgitation I34.0 Moderate mitral stenosis I05.0 Dynamic left ventricular outflow obstruction I51.89 Mild aortic stenosis I35.0 CKD (chronic kidney disease) N18.9 Chronic kidney disease stage: unspecified stage Digoxin toxicity T46.0X1A Pleural effusion, left J90 (1) (HFpEF) heart failure with preserved ejection fraction Heart failure chronicity: chronic Qualified Code(s): I50.32 - Chronic diastolic (congestive) heart failure (7) CKD (chronic kidney disease) Chronic kidney disease stage: unspecified stage Qualified Code(s): N18.9 - Chronic kidney disease, unspecified
[2024-09-08 14:41] LABS: Appearance Urine Clear (Clear); Bacteria Urine Automated None Seen (None Seen); Bilirubin Urine Negative (Negative); Blood Urine Negative (Negative); Color Urine Yellow; Epithelial Cell Urine Auto 0-2 /hpf (0-2); Glucose Urine UA Trace (Negative); Ketones Urine Negative (Negative); Leukocyte Esterase Urine Trace (Negative); Nitrite Urine Negative (Negative); Protein Urine 3+ (Negative); RBC Urine Automated 0-2 /hpf (0-2); Specific Gravity Urine 1.015 (1.000-1.030); Sperm Urine Present (None Prsent); Urobilinogen Urine Negative (Negative); WBC Urine Automated 0-5 /hpf (0-5); pH Urine 5.5 (4.5-7.5)
[2024-09-09 07:37] LABS: Hemoglobin 14.5 g/dl (14.0-18.0); Mean Corpuscular Hgb Conc 33.7 g/dL (32.0-36.0); Mean Corpuscular Volume 97.7 fL (80.0-100.0); Mean Platelet Volume 12.3 fL (9.4-12.4); Nucleated RBC # (auto) 0.02 K/uL (0.00-0.12); Nucleated RBC % (auto) 0.3 %; Platelet Count 92 K/uL (130-400); RDW Coefficient of Variation 17.2 % (11.5-14.5); RDW Standard Deviation 61.4 fL (36.4-46.3); White Blood Count 6.55 K/ul (4.8-10.8)
[2024-09-09 07:59] LABS: Albumin Globulin Ratio 1.1 (0.9-2); Albumin Level 3.2 gm/dl (3.4-5.0); BUN Creatinine Ratio 33.3 (10-20); Bilirubin,Total 1.4 mg/dl (0.2-1.0); Creatinine Clr Calc Pharmacy 30.6 ml/min; Globulin 2.9 gm/dl (2.5-4.0); Phosphorus 4.2 mg/dl (2.5-4.9); Potassium 3.6 mmol/L (3.5-5.1); Total Protein 6.1 gm/dl (6.0-8.3)
[2024-09-09 08:19] LABS: Ferritin 140.3 ng/ml (8-388)
[2024-09-09] MEDS: ACETAMINOPHEN 325 MG TAB PO PRN (08:35)
[2024-09-09] MEDS: ATORVASTATIN 40 MG TAB PO SCH (08:40)
--- NOTE | 2024-09-09 09:04 | Electrocardiogram Report ---
Test Reason : Blood Pressure : */* mmHG Vent. Rate : 54 BPM Atrial Rate : * BPM P-R Int : * ms QRS Dur : 108 ms QT Int : 408 ms P-R-T Axes : * -20 150 degrees QTcB Int : 386 ms Atrial fibrillation with escape Junctional rhythm Non-specific intra-ventricular conduction delay ST depression in Anterolateral leads , consider ischemia Abnormal ECG When compared with ECG of 14-Aug-2021 06:52, HR has decreased by 21 bpm Junctional bradycardia now present ST depression in Anterolateral leads now present Confirmed by John Brown ([id number]) on 09/09/2024 9:03:49 AM Referred By: REFERRED SELF Confirmed By: John Brown
--- NOTE | 2024-09-09 11:26 | Nephrology Progress Note ---
Date of Service September 09, 2024 Assessment & Plan (1) KAMRYN (acute kidney injury): Plan: Non-oliguric. KAMRYN consistent with cardiorenal syndrome. Electrolytes acceptable. Volume status hypervolemic. No emergent indication for dialysis. Thankfully, digoxin level is trending down. Digoxin will be held due to evidence of toxicity. Levels will be monitored routinely. Urine microscopy is acellular. Hyaline casts noted. Document strict I/O's. Repeat metabolic profile tomorrow AM. Hold empagliflozin. Avoid RAASi. Continue diuretics to encourage slightly negative fluid balance. (2) Cardiorenal syndrome: Plan: Cardiology consult appreciated. Additional work-up regarding valvular heart disease and LVOT obstruction to follow. (3) Acute heart failure with preserved ejection fraction (HFpEF): Plan: Diuretics to encourage gentle diuresis. (4) CKD (chronic kidney disease): Plan: Chronic kidney disease IIIb-IV A3. CKD attributed to arterionephrosclerosis, hypertension, and cardiorenal syndrome. No recent imaging. 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 (5) Atrial flutter: Plan: AV whitney blocking agents held. (6) Moderate to severe mitral regurgitation: (7) Dynamic left ventricular outflow obstruction: (8) Digoxin toxicity: Admission and Anticipated Discharge Date Admission Date: September 07, 2024 Subjective No acute events overnight. Carly was seen and evaluated with his daughter at the bedside. He states that he is feeling better this AM. He repots good response to IV furosemide yesterday. He feels slightly stronger this AM. He also notes that his swallowing has improved. LE edema has improved slightly. He denie s chest pains or palpitations. He does not endorse significant lightheadedness or dizziness. Review of Systems Review of Systems: All systems reviewed & are unremarkable except as noted in HPI & below Physical Exam Constitutional: + thin and + frail appearing; no acute d istress Eyes: no scleral abnormality and no corneal abnormality Neck: normal visual inspection and trachea midline Respiratory: normal respiratory effort Auscultation: lungs clear to auscultation bilaterally Cardiovascular: Rate/Rhythm: + bradycardic Heart Sounds: normal S1, normal S2 and + murmur Vessels: + JVD Extremities: + edema Musculoskeletal: Extremities: no cyanosis and no clubbing Skin: + turgor decreased; no jaundice Neurologic: Motor/Sensory: no tremor and no asterixis Psychiatric: Orientation: alert and oriented x 3 Results & Data Vital Signs (Past 12 Hours) Vital Signs Temp Pulse Resp BP Pulse Ox O2 Del Method 09/09/24 11:14 36.6 C 46 L 18 121/74 97 Room Air 09/09/24 07:40 36.8 C 56 L 18 124/69 94 Room Air 09/09/24 07:30 Room Air 09/09/24 03:43 36.4 C L 65 16 127/76 96 Room Air Laboratory Results Laboratory Results - last 24 hr 09/08/24 09/08/24 09/08/24 11:22 14:18 Unknown WBC RBC Hgb Hct MCV MCH MCHC RDW Std Deviation RDW Coeff of Katelin Plt Count MPV Absolute Nucleated RBC Nucleated RBC % (auto) Sodium Potassium Chloride Carbon Dioxide Anion Gap BUN Creatinine Est Cr Clr Drug Dosing eGFR BUN/Creatinine Ratio Glucose Calcium Phosphorus Iron TIBC Transferrin Transferrin % Sat Ferritin Total Bilirubin AST ALT Alkaline Phosphatase Total Protein Albumin Globulin Albumin/Globulin Ratio Urine Color Yellow Urine Appearance Clear Urine pH 5.5 Ur Specific [place] 1.015 Urine Protein 3+ H Urine Glucose (UA) Trace H Urine Ketones Negative Urine Blood Negative Urine Nitrite Negative Urine Bilirubin Negative Urine Urobilinogen Negative Ur Leukocyte Esterase Trace H Urine WBC (Auto) 0-5 Urine RBC (Auto) 0-2 U Hyaline Cast (Auto) 3-5 H U Epithel Cells (Auto) 0-2 Urine Bacteria (Auto) None Seen Urine Sperm Present A Ur Random Sodium 34 Digoxin 2.0 09/09/24 07:02 WBC 6.55 RBC 4.40 L Hgb 14.5 Hct 43.0 MCV 97.7 MCH 33.0 MCHC 33.7 RDW Std Deviation 61.4 H RDW Coeff of Katelin 17.2 H Plt Count 92 L MPV 12.3 Absolute Nucleated RBC 0.02 Nucleated RBC % (auto) 0.3 Sodium 139 Potassium 3.6 Chloride 102 Carbon Dioxide 28 Anion Gap 9 BUN 91 H Creatinine 2.73 H Est Cr Clr Drug Dosing 30.6 eGFR 25.18 BUN/Creatinine Ratio 33.3 H Glucose 102 H Calcium 9.0 Phosphorus 4.2 Iron 63 TIBC 393 Transferrin 281 Transferrin % Sat 16 L Ferritin 140.3 Total Bilirubin 1.4 H AST 32 ALT 22 Alkaline Phosphatase 110 H Total Protein 6.1 Albumin 3.2 L Globulin 2.9 Albumin/Globulin Ratio 1.1 Urine Color Urine Appearance Urine pH Ur Specific [place] Urine Protein Urine Glucose (UA) Urine Ketones Urine Blood Urine Nitrite Urine Bilirubin Urine Urobilinogen Ur Leukocyte Esterase Urine WBC (Auto) Urine RBC (Auto) U Hyaline Cast (Auto) U Epithel Cells (Auto) Urine Bacteria (Auto) Urine Sperm Ur Random Sodium Digoxin 1.9 PG Care Time/CCT Total # of Minutes Spent Total Time Spent with Patient: Total time spent is greater than 50% in coordination of care (as documented) at patient's floor/unit and/or counseling patient: Coding Level of Care Code 30237 SUB INP/OBS CARE 3/50MIN Diagnoses KAMRYN (acute kidney injury) N17.9 Cardiorenal syndrome I13.10 Acute heart failure with preserved ejection fraction (HFpEF) I50.31 CKD (chronic kidney disease) N18.9 Chronic kidney disease stage: unspecified stage Atrial flutter I48.92 Atrial flutter type: unspecified Moderate to severe mitral regurgitation I34.0 Dynamic left ventricular outflow obstruction I51.89 Digoxin toxicity T46.0X1A (4) CKD (chronic kidney disease) Chronic kidney disease stage: unspecified stage Qualified Code(s): N18.9 - C hronic kidney disease, unspecified (5) Atrial flutter Atrial flutter type: unspecified Qualified Code(s): I48.92 - Unspecified atrial flutter
[2024-09-09] MEDS: NYSTATIN OINT 15 GM TUBE EXT SCH (12:28)
[2024-09-09] MEDS: FUROSEMIDE 40 MG/4 ML VIAL IV ONE (12:28)
--- NOTE | 2024-09-09 13:41 | Hospitalist Progress Note ---
Date of Service September 09, 2024 Assessment & Plan (1) Acute heart failure with preserved ejection fraction (HFpEF): (2) KAMRYN (acute kidney injury): (3) Difficulty swallowing: Plan #Acute CHF CXR on arrival revealed cardiomegaly with mild pulmonary vascular congestion LETY on 12/18/2023 revealed LVEF >70%, with severe left atrial dilation and moderate to severe mitral annular calcification BNP >4700 on arrival (similar to prior) The patient got Lasix 80 mg IV in the ER and yesterday Patient had good clinical and diuretic response to the Lasix in the emergency room Will give him another dose of 80 mg IV x 1 now Monitor daily weights Monitor BMP Monitor I's and O's Cardiology and nephrology involved Patient may need further cardiac evaluation for his valvular heart disease soon Cardiology to decide on LETY/cardiac catheterization in the next few days #KAMRYN On admission, BUN 92, creatinine 2.86 (baseline around 2.3, but progressively worsening) Nephrology consulted Creatinine stable at in response to 80 mg of IV Lasix he received yesterday Will give him another 80 mg of IV Lasix today Monitor BMP closely #Elevated troponin Troponin 120->129; trend to peak Patient reports he is chest pain-free at time of admission Suspect secondary to acute heart failure, demand ischemia Continuous telemetry monitoring #Difficulty swallowing Progressive worsening dysphagia of pills over the past 2 months Gastroenterology consulted GI planning on outpatient EGD and possibly colonoscopy after acute issues resolved #Paroxysmal atrial fibrillation Was bradycardic this morning with pauses Hold metoprolol and Cardizem Hold digoxin Digoxin level slightly high Hold Eliquis in the event that patient requires thoracentesis or further procedures in the next few days #Tobacco use Nicotine patch Continue to encourage cessation Full code Heart healthy, low-sodium diet (1200 mL fluid restriction) VTE PPx: Thigh-high SCDs; hold Eliquis Admission and Anticipated Discharge Date Admission Date: September 07, 2024 Subjective Patient was seen and examined today at 9:55 AM. He says that his leg swelling is improving. He is making a lot of urine. However he is at times missing the urinal. Review of Systems Review of Systems: All systems reviewed & are unremarkable except as noted in Subjective Physical Exam Physical Exam: General: Awake, conversant Heart: S1, S2/regular rate and rhythm, no murmur rubs or gallops Lungs: Bibasilar crackles improving. Normal effort Abdomen: Soft/nontender/nondistended. No hepatosplenomegaly Extremities: No clubbing/cyanosis. 2+ pitting bilateral edema Behavior: Appropriate, cooperative Results & Data Results & Data Vital Signs (Past 12 Hours) Vital Signs Temp Pulse Resp BP Pulse Ox O2 Del Method 09/09/24 11:14 36.6 C 46 L 18 121/74 97 Room Air 09/09/24 07:40 36.8 C 56 L 18 124/69 94 Room Air 09/09/24 07:30 Room Air 09/09/24 03:43 36.4 C L 65 16 127/76 96 Room Air Laboratory Results Abnormal lab results 09/08/24 09/09/24 Range/Units 14:18 07:02 RBC 4.40 L (4.70-6.10) M/uL RDW Std Deviation 61.4 H (36.4-46.3) fL RDW Coeff of Katelin 17.2 H (11.5-14.5) % Plt Count 92 L (130-400) K/uL BUN 91 H (6-23) mg/dl Creatinine 2.73 H (0.6-1.4) mg/dl BUN/Creatinine Ratio 33.3 H (10-20) Glucose 102 H (70-99(Fasting)) mg/dl Transferrin % Sat 16 L (20-50) % Total Bilirubin 1.4 H (0.2-1.0) mg/dl Alkaline Phosphatase 110 H (34-104) U/L Albumin 3.2 L (3.4-5.0) gm/dl Urine Protein 3+ H (Negative) Urine Glucose (UA) Trace H (Negative) Ur Leukocyte Esterase Trace H (Negative) U Hyaline Cast (Auto) 3-5 H (0-2) /lpf Urine Sperm Present A (None Prsent) PG Care Time/CCT Total # of Minutes Spent Total Time Spent with Patient: Total time spent is greater than 50% in coordination of care (as documented) at patient's floor/unit and/or counseling patient: Coding Level of Care Code 32993 SUB INP/OBS CARE 2/35MIN Diagnoses Acute heart failure with preserved ejection fraction (HFpEF) I50.31 KAMRYN (acute kidney injury) N17.9 Difficulty swallowing R13.10
--- NOTE | 2024-09-09 15:29 | Cardiology Progress Note ---
Date of Service September 09, 2024 Assessment & Plan (1) (HFpEF) heart failure with preserved ejection fraction: (2) Junctional bradycardia: (3) Severe mitral regurgitation: (4) Moderate mitral stenosis: (5) Dynamic left ventricular outflow obstruction: (6) Mild aortic stenosis: (7) CKD (chronic kidney disease): (8) Digoxin toxicity: (9) Pleural effusion, left: Plan Seems to be gradually diuresing. With stable BP and would continue with moderately high dose of furosemide (80 mg) once or twice daily (depending upon at least subjective degree of diuresis). He did note reasonable diuresis today, so his single dose thus far is probably adequate. Would like to further volume unload before proceeding with valve workup, so this likely would not be before Tuesday. At that time, could perform right and left heart catheterization with coronary angiograms. This would help risk stratify to see if he would need valve surgery alone or CABG and would help to assess his volume status AFTER he is closer to being euvolemic Continuing to hold negative chronotropic medications, they should washout sometime today and his heart rate likely will increase, at which time metoprolol could be gradually added back. I am covering cardiology all week and will continue to follow him closely. Admission and Anticipated Discharge Date Admission Date: September 07, 2024 Subjective Feels a bit better today, states that he is able to wash up and perform other activities without difficulty (previously he would become winded). Also notes some decrease in his leg edema. Input output not well-documented and weight seems unreliable. At the time of evaluation this morning, he denied chest pain, dyspnea at rest, palpitations, or lightheadedness. Telemetry showed persistence of his junctional escape rhythm with underlying atrial fibrillation, rate in the 50 bpm range. His diltiazem, digoxin and metoprolol continue to be held. Physical Exam Physical Exam: No distress. BP normotensive. Pulse 52 bpm and regular. Respirations 16 unlabored. Skin: No ecchymosis or generalized lesions. Stasis changes both lower extremities. HEENT: Benign. Neck: Jugular venous pulse still 1/[address] to the angle of the jaw at 90 with prominent "v" waves. No carotid bruits. Lungs: Dullness and few crackles left base, generally clear. Cardiac: Irregular rhythm. 3/6 systolic ejection murmur right upper sternal border radiating to the carotids (no obvious change in murmur upon standing), moderately reduced aortic closure sound, 3/6 apical holosystolic murmur radiating to the right sternal border and axilla. No diastolic murmur appreciated. Accentuated S1. No gallop or rub. Abdomen: benign. Extremities: Brisk radial and dorsalis pedis pulses. Good capillary refill. 2-3+ pretibial edema (slightly decreased). Neurologic: Normal affect and conversation, nonfocal. Results & Data Vital Signs (Past 12 Hours) Vital Signs Temp Pulse Resp BP Pulse Ox O2 Del Method 09/09/24 14:59 98.1 F 52 L 16 121/69 97 Room Air 09/09/24 11:14 97.9 F 46 L 18 121/74 97 Room Air 09/09/24 07:40 98.2 F 56 L 18 124/69 94 Room Air 09/09/24 07:30 Room Air 09/09/24 03:43 97.5 F L 65 16 127/76 96 Room Air Laboratory Results Platelet count 92,000 (up from 82,000), normal hemoglobin and CBC. Normal electrolytes, BUN 91, creatinine 2.73 (renal function stable) PG Care Time/CCT Total # of Minutes Spent Total Time Spent with Patient: Total time spent is greater than 50% in coordination of care (as documented) at patient's floor/unit and/or counseling patient: Coding Level of Care Code 49578 SUB INP/OBS CARE 3/50MIN Diagnoses Chronic heart failure with preserved ejection fraction I50.32 Heart failure chronicity: chronic Junctional bradycardia R00.1 Severe mitral regurgitation I34.0 Moderate mitral stenosis I05.0 Dynamic left ventricular outflow obstruction I51.89 Mild aortic stenosis I35.0 CKD (chronic kidney disease) N18.9 Chronic kidney disease stage: unspecified stage Digoxin toxicity T46.0X1A Pleural effusion, left J90 (1) (HFpEF) heart failure with preserved ejection fraction Heart failure chronicity: chronic Qualified Code(s): I50.32 - Chronic diastolic (congestive) heart failure (7) CKD (chronic kidney disease) Chronic kidney disease stage: unspecified stage Qualified Code(s): N18.9 - Chronic kidney disease, unspecified
[2024-09-10 10:02] LABS: Albumin Level 3.5 gm/dl (3.4-5.0); BUN Creatinine Ratio 26.5 (10-20); Calcium 8.6 mg/dl (8.6-10.3); Creatinine Clr Calc Pharmacy 25.5 ml/min; Phosphorus 4.2 mg/dl (2.5-4.9); Potassium 3.7 mmol/L (3.5-5.1)
[2024-09-10 11:51] LABS: Hematocrit (blood only) 45.1 % (42.0-52.0); Hemoglobin 14.7 g/dl (14.0-18.0); Mean Corpuscular Hemoglobin 32.6 pg (25.0-34.0); Mean Corpuscular Hgb Conc 32.6 g/dL (32.0-36.0); Mean Platelet Volume 11.7 fL (9.4-12.4); Nucleated RBC # (auto) 0.02 K/uL (0.00-0.12); Nucleated RBC % (auto) 0.3 %; Platelet Count 75 K/uL (130-400); RDW Coefficient of Variation 17.4 % (11.5-14.5); RDW Standard Deviation 63.6 fL (36.4-46.3); Red Blood Count 4.51 M/uL (4.70-6.10); White Blood Count 6.92 K/ul (4.8-10.8)
[2024-09-10 11:52] LABS: Folate (Folic Acid),Ser orPlas 10.74 ng/ml (>5.38)
[2024-09-10 11:52] LABS: Basophils # (auto) 0.07 K/uL (0.00-0.20); Eosinophils # (auto) 0.13 K/uL (0.00-0.50); Eosinophils % (auto) 1.9 %; Immature Granulocytes # (auto) 0.03 K/uL (0.01-0.20); Immature Granulocytes % (auto) 0.4 %; Lymphocytes # (auto) 0.52 K/uL (1.20-3.40); Lymphocytes % (auto) 7.5 %; Monocytes # (auto) 0.56 K/uL (0.11-0.59); Monocytes % (auto) 8.1 %; Neutrophils # (auto) 5.61 K/uL (1.40-6.50); Neutrophils % (auto) 81.1 %; Ovalocytes 2+; Platelet Estimate Decreased (Normal); Polychromasia 1+
--- NOTE | 2024-09-10 12:21 | Nephrology Progress Note ---
Date of Service September 10, 2024 Assessment & Plan (1) KAMRYN (acute kidney injury): Plan: Non-oliguric. KAMRYN consistent with cardiorenal syndrome. Electrolytes acceptable. Volume status hypervolemic. No emergent indication for dialysis. Signs of digoxin toxicity are improving. Creatinine javy slightly in past 24 hours. I suspect this is in response to diuretics. Unfortunately, significant evidence of heart failure persist. I would continue diuretics to maintain a negative fluid balance. Document strict I/O's. Repeat metabolic profile tomorrow AM. Continue diuretics to encourage slightly negative fluid balance. I would suggest an additional 80 mg of IV furosemide today. (2) Cardiorenal syndrome: Plan: Cardiology consult appreciated. Ultimately, will require additional work-up/in tervention regarding valvular heart disease and LVOT obstruction to follow. (3) Acute heart failure with preserved ejection fraction (HFpEF): (4) CKD (chronic kidney disease): Plan: Chronic kidney disease IIIb-IV A3. CKD attributed to arterionephrosclerosis, hypertension, and cardiorenal syndrome. No recent imaging. Potential future indications for NON [employer] were reviewed. (5) Atrial flutter: Plan: AV whitney blocking agents held. (6) Moderate to severe mitral regurgitation: (7) Dynamic left ventricular outflow obstruction: (8) Digoxin toxicity: Admission and Anticipated Discharge Date Admission Date: September 07, 2024 Subjective No acute events overnight. Carly was seen and evaluated in his hospital room this morning. Overall, he reports continued subjective improvement. Activity tolerance has improved though his ability to walk distances remains limited. Weakness in his legs persists. They are very heavy and edematous. Generalized weakness also persists. He denies lightheadedness or dizziness. He denies chest pains or palpitations. Dyspnea with exertion persists but continues to improve. Edema is stable. He describes significant increase in urine output in response to IV furosemide yesterday. He was very anxious this AM. He spoke to Dr. Brown earlier in the morning. Review of Systems Review of Systems: All systems reviewed & are unremarkable except as noted in HPI & below Physical Exam Constitutional: + thin and + frail appearing; no acute d istress Eyes: no scleral abnormality and no corneal abnormality Neck: normal visual inspection and trachea midline Respiratory: normal respiratory effort Auscultation: lungs clear to au scultation bilaterally Cardiovascular: Rate/Rhythm: + bradycardic Heart Sounds: normal S1, normal S2 and + murmur Vessels: + JVD Extremities: + edema Musculoskeletal: Extremities: no cyanosis and no clubbing Skin: normal turgor; no jaundice Neurologic: Motor/Sensory: no tremor and no asterixis Psychiatric: Orientation: alert and oriented x 3 Results & Data Vital Signs (Past 12 Hours) Vital Signs Temp Pulse Pulse Resp BP Pulse Ox O2 Del Method 09/10/24 11:41 36.4 C L 55 L 18 141/68 H 96 Room Air 09/10/24 09:00 Room Air 09/10/24 07:53 36.5 C 59 L 16 138/72 97 Room Air 09/10/24 07:00 57 L 09/10/24 02:59 48 L 09/10/24 02:19 36.4 C L 60 18 120/66 94 Room Air Laboratory Results Laboratory Results - last 24 hr 09/10/24 09/10/24 09:25 09:29 WBC 6.92 RBC 4.51 L Hgb 14.7 Hct 45.1 MCV 100.0 MCH 32.6 MCHC 32.6 RDW Std Deviation 63.6 H RDW Coeff of Katelin 17.4 H Plt Count 75 L MPV 11.7 Immature Gran % (Auto) 0.4 Neut % (Auto) 81.1 Lymph % (Auto) 7.5 Gooding % (Auto) 8.1 Eos % (Auto) 1.9 Baso % (Auto) 1.0 Neut # (Auto) 5.61 Lymph # (Auto) 0.52 L Gooding # (Auto) 0.56 Eos # (Auto) 0.13 Baso # (Auto) 0.07 Immature Gran # (Auto) 0.03 Absolute Nucleated RBC 0.02 Nucleated RBC % (auto) 0.3 Platelet Estimate Decreased L Polychromasia 1+ Ovalocytes 2+ Peripher Smr Path Cons Pending Sodium 138 Potassium 3.7 Chloride 100 Carbon Dioxide 32 Anion Gap 6 BUN 80 H Creatinine 3.02 H Est Cr Clr Drug Dosing 25.5 eGFR 22.31 BUN/Creatinine Ratio 26.5 H Glucose 118 H Calcium 8.6 Phosphorus 4.2 Albumin 3.5 Vitamin B12 1438 H Folate 10.74 Digoxin 1.4 PG Care Time/CCT Total # of Minutes Spent Total Time Spent with Patient: Total time spent is greater than 50% in coordination of care (as documented) at patient's floor/unit and/or counseling patient: Coding Level of Care Code 82698 SUB INP/OBS CARE 50MIN Diagnoses KAMRYN (acute kidney injury) N17.9 Cardiorenal syndrome I13.10 Acute heart failure with preserved ejection fraction (HFpEF) I50.31 CKD (chronic kidney disease) N18.9 Chronic kidney disease stage: unspecified stage Atrial flutter I48.92 Atrial flutter type: unspecified Moderate to severe mitral regurgitation I34.0 Dynamic left ventricular outflow obstruction I51.89 Digoxin toxicity T46.0X1A (4) CKD (chronic kidney disease) Chronic kidney disease stage: unspecified stage Qualified Code(s): N18.9 - Chronic kidney disease, unspecified (5) Atrial flutter Atrial flutter type: unspecified Qualified Code(s): I48.92 - Unspecified atrial flutter
--- NOTE | 2024-09-10 16:56 | Hospitalist Progress Note ---
Date of Service September 10, 2024 Assessment & Plan (1) Acute heart failure with preserved ejection fraction (HFpEF): (2) KAMRYN (acute kidney injury): (3) Severe mitral regurgitation: (4) Digoxin toxicity: Plan This patient is a 64-year-old male with a history of permanent atrial flutter, severe LVOT, moderate mitral stenosis with severe MR, mild to moderate AI, moderate pulm HTN, mild aortic stenosis, HTN, DM2, gout, CKD stage III-IV, who presents with dyspnea on exertion, lower extremity edema, and orthopnea. He is being treated for cardiorenal syndrome with acute on chronic HFpEF related to significant valvular disease and digoxin toxicity. He was also noted to be significantly bradycardic. #Acute on chronic HFpEF/cardiorenal syndrome/mitral stenosis/regurgitation/pulm HTN/severe LVOT-CXR on arrival revealed cardiomegaly with mild pulmonary vascular congestion, pleural effusion on left. LETY on 12/18/2023 revealed LVEF >70%, with severe left atrial dilation and moderate to severe mitral annular calcification. BNP >4700 on arrival (similar to prior). Troponin mildly elevated and stable on serial checks in the 120s. ECG with atrial fibrillation with junctional escape, rate in the 50s with ST depression in anterolateral leads. The patient got Lasix 80 mg IV daily since admission and has had good clinical response but still remains massively volume overloaded. His weight is down 4 kg and his I's and O's are not accurate as he is voiding in the toilet. Cardiology and nephrology are following. Cardiology is recommending a right heart cath to see if his hemodynamics have been optimized and ultimately recommends that he be referred to tertiary care center for left heart cath and coronary angiograms for preop evaluation for valvular repair. Creatinine with slight rise to 3.0-nephrology recommends continued diuresis with close monitoring of renal function -Give Lasix 80 Mg IV x 1 -Echocardiogram ordered and pending -Continue strict I's and O's, daily weights, low-sodium diet, fluid restrict to 1200 mL/day -N.p.o. after midnight in case patient decides to go through with right heart cath on 09/11 -Follow BMP -Stopped digoxin for toxicity; stopped diltiazem, Toprol-XL for significant bradycardia and junctional rhythm -Holding Eliquis for cardiac catheterization #KAMRYN on CKD Stage IV/cardiorenal syndrome-On admission, BUN 92, creatinine 2.86 (baseline around 2.3, but progressively worsening)-creatinine rising to 3.0 with diuresis Nephrology consult appreciated. UA here with 3+ protein, 3-5 hyaline casts. Making plenty of urine. With digoxin toxicity now improving -Monitor BMP closely -Continue to hold digoxin -Holding Jardiance and home metolazone #Thrombocytopenia/anemia-platelets in the 90s on arrival and now dropped to 75. Vitamin B12 is normal. He has not received any heparin products. This is an acute issue as platelets were normal just a few months ago. Previous imaging of spleen and liver from 2019 are normal. No evidence of anaplasmosis or b abesiosis on peripheral smear or any other myelodysplastic features. No issues with bleeding. Suspect thrombocytopenia secondary to digoxin toxicity. -Follow CBC -Holding digoxin #Elevated troponin/demand ischemia-noted above -Continue home atorvastatin #RLS-iron levels are normal. Gabapentin has been ineffective -Start Mirapex 0.125 Mg p.o. at bedtime which is renally dosed #Difficulty swallowing-progressive worsening dysphagia of pills over the past 2 months-gastroenterology consulted -GI planning on outpatient EGD and possibly colonoscopy after acute issues resolved # Permanent atrial flutter-was bradycardia here from dig toxicity. Improving now with rates in the 60s. Digoxin levels are trending downward -Continue to hold metoprolol and Cardizem -Discontinue digoxin =Holding Eliquis for cath #Tobacco use -Nicotine patch -Continue to encourage cessation #GERD-continue PPI twice daily #Gout-continue allopurinol but needs to be renally dosed-reduce to 100 mg daily DVT [id number] SCDs; hold Eliquis Dispo-continued stay on PCU. Discussed all care with daughter at the bedside on 09/10 Admission and Anticipated Discharge Date Admission Date: September 07, 2024 Subjective Patient denies shortness of breath with exertion as this has improved since admi ssion. He still complains of massive swelling of his lower extremities. I discussed his care with nephrology and cardiology. The patient is unsure at this point if he wants to proceed with any catheterization here but is hoping to discuss with cardiology this evening. He denies chest pain. He is eating well without nausea. He is complaining of significant restless legs and states that the gabapentin has not helped him at all Telemetry with atrial flutter with rates in the 50s to 60s I discussed his care with his daughter at the bedside Physical Exam Constitutional: WD/WN, vitals as above Respiratory: normal respiratory effort Auscultation: + diminished lung sounds (At left base) and + crackles (Left base); no rhonchi and no wheezes Cardiovascular: Rate/Rhythm: + bradycardic and + irregularly irregular Heart Sounds: + murmur (3/6 holosystolic murmur at the base of the heart) Extremities: + edema (3+ pitting edema of lower extremities up to the proximal thighs bilateral) Psychiatric: A+Ox3, euthymic affect Results & Data Results & Data Vital Signs (Past 12 Hours) Vital Signs Temp Pulse Pulse Resp BP Pulse Ox O2 Del Method 09/10/24 13:00 54 L 09/10/24 11:41 36.4 C L 55 L 18 141/68 H 96 Room Air 09/10/24 09:00 Room Air 09/10/24 07:53 36.5 C 59 L 16 138/72 97 Room Air 09/10/24 07:00 57 L Laboratory Results CBC, CMP, iron studies reviewed PG Care Time/CCT Total # of Minutes Spent Total Time Spent with Patient: Total time spent is greater than 50% in coordination of care (as documented) at patient's floor/unit and/or counseling patient: Coding Level of Care Code 45128 SUB INP/OBS CARE 3/50MIN Diagnoses Acute heart failure with preserved ejection fraction (HFpEF) I50.31 KAMRYN (acute kidney injury) N17.9 Severe mitral regurgitation I34.0 Digoxin toxicity T46.0X1A
--- NOTE | 2024-09-10 17:11 | Cardiology Progress Note ---
Date of Service September 10, 2024 Assessment & Plan (1) (HFpEF) heart failure with preserved ejection fraction: (2) Junctional bradycardia: (3) Severe mitral regurgitation: (4) Moderate mitral stenosis: (5) Dynamic left ventricular outflow obstruction: (6) Mild aortic stenosis: (7) CKD (chronic kidney disease): (8) Digoxin toxicity: (9) Pleural effusion, left: Plan Diuretics held today due to slowly rising creatinine (3.02). Discussed with him at some length options for further evaluation of his valvular disease, not clear yet that he would like to go to tertiary care center for evaluation immediately. Will check repeat transthoracic echo for general baseline and consider right heart cath to see if his hemodynamics have been optimized. Still encouraging him to obtain left heart cath and coronary angiograms, perhaps best done at a tertiary care center (could use biplane imaging to reduce volume/dye load). Continue to hold negative chronotropic medications, heart rate seems to be impr oving but is still somewhat bradycardic. Admission and Anticipated Discharge Date Admission Date: September 07, 2024 Subjective Feels a little bit better today. Walks to the bathroom and back without dyspnea. A little less leg edema. No new complaints. Did not receive any diuretic thus far today. Weight down 9 pounds from admission (? accuracy). Telemetry showed resolution of his junctional bradycardia and return to atrial flutter, rates are still on the low end (60 bpm range). Physical Exam Physical Exam: No distress. BP normotensive. Pulse 58 bpm and irregular. Respirations 18 unlabored. Skin: No ecchymosis or generalized lesions. Stasis changes both lower extremities. HEENT: Benign. Neck: Jugular venous pulse still 1/[address] the angle of the jaw at 90 with prominent "v" waves. No carotid bruits. Lungs: generally clear. Cardiac: Irregular rhythm. 3/6 systolic ejection murmur right upper sternal border radiating to the carotids (no obvious change in murmur upon standing), moderately reduced aortic closure sound, 3/6 apical holosystolic murmur radiating to the right sternal border and axilla. No diastolic murmur appreciated. Accentuated S1. No gallop or rub. Abdomen: benign. Extremities: Brisk radial and dorsalis pedis pulses. Good capillary refill. 2-3+ pretibial edema (slightly decreased). Neurologic: Normal affect and conversation, nonfocal. Results & Data Vital Signs (Past 12 Hours) Vital Signs Temp Pulse Pulse Resp BP Pulse Ox O2 Del Method 09/10/24 13:00 54 L 09/10/24 11:41 97.5 F L 55 L 18 141/68 H 96 Room Air 09/10/24 09:00 Room Air 09/10/24 07:53 97.7 F 59 L 16 138/72 97 Room Air 09/10/24 07:00 57 L Laboratory Results Normal electrolytes, BUN 80, creatinine 3.02. PG Care Time/CCT Total # of Minutes Spent Total Time Spent with Patient: Total time spent is greater than 50% in coordination of care (as documented) at patient's floor/unit and/or counseling patient: Coding Level of Care Code 08330 SUB INP/OBS CARE 3/50MIN Diagnoses Chronic heart failure with preserved ejection fraction I50.32 Heart failure chronicity: chronic Junctional bradycardia R00.1 Severe mitral regurgitation I34.0 Moderate mitral stenosis I05.0 Dynamic left ventricular outflow obstruction I51.89 Mild aortic stenosis I35.0 CKD (chronic kidney disease) N18.9 Chronic kidney disease stage: unspecified stage Digoxin toxicity T46.0X1A Pleural effusion, left J90 (1) (HFpEF) heart failure with preserved ejection fraction Heart failure chronicity: chronic Qualified Code(s): I50.32 - Chronic diastolic (congestive) heart failure (7) CKD (chronic kidney disease) Chronic kidney disease stage: unspecified stage Qualified Code(s): N18.9 - Chronic kidney disease, unspecified
[2024-09-10] MEDS: FUROSEMIDE 40 MG/4 ML VIAL IV ONE (17:48)
[2024-09-10] MEDS: PRAMIPEXOLE DIHYDROCHLO 0.25 MG TAB PO SCH (21:39)
[2024-09-11 06:36] LABS: Basophils # (auto) 0.05 K/uL (0.00-0.20); Basophils % (auto) 0.8 %; Eosinophils % (auto) 1.6 %; Hemoglobin 13.9 g/dl (14.0-18.0); Immature Granulocytes # (auto) 0.03 K/uL (0.01-0.20); Immature Granulocytes % (auto) 0.5 %; Lymphocytes # (auto) 0.49 K/uL (1.20-3.40); Lymphocytes % (auto) 7.9 %; Mean Corpuscular Hemoglobin 32.5 pg (25.0-34.0); Mean Corpuscular Hgb Conc 33.1 g/dL (32.0-36.0); Mean Corpuscular Volume 98.1 fL (80.0-100.0); Mean Platelet Volume 11.2 fL (9.4-12.4); Monocytes # (auto) 0.54 K/uL (0.11-0.59); Monocytes % (auto) 8.7 %; Neutrophils # (auto) 4.99 K/uL (1.40-6.50); Neutrophils % (auto) 80.5 %; Platelet Count 71 K/uL (130-400); RDW Coefficient of Variation 17.3 % (11.5-14.5); RDW Standard Deviation 61.8 fL (36.4-46.3); Red Blood Count 4.28 M/uL (4.70-6.10)
[2024-09-11 06:49] LABS: Albumin Globulin Ratio 1.2 (0.9-2); Albumin Level 3.3 gm/dl (3.4-5.0); BUN Creatinine Ratio 25.5 (10-20); Bilirubin,Total 1.6 mg/dl (0.2-1.0); Calcium 9.1 mg/dl (8.6-10.3); Creatinine Clr Calc Pharmacy 25.2 ml/min; Globulin 2.7 gm/dl (2.5-4.0); Magnesium 1.8 mg/dl (1.7-2.4); Potassium 3.9 mmol/L (3.5-5.1)
[2024-09-11] MEDS: allopurinoL 100 MG TAB PO SCH (09:40)
--- NOTE | 2024-09-11 12:05 | XCELERA ---
[id number]___[id number]
--- NOTE | 2024-09-11 15:43 | Cardiology Progress Note ---
Date of Service September 11, 2024 Assessment & Plan (1) Dynamic left ventricular outflow obstruction: (2) (HFpEF) heart failure with preserved ejection fraction: (3) Severe mitral regurgitation: (4) Moderate mitral stenosis: (5) Mild aortic stenosis: (6) CKD (chronic kidney disease): (7) Pleural effusion, left: Plan Mild improvement in leg edema and dyspnea on exertion during his current hospital stay, but no substantial change in his overall clinical status. Reviewed chronology of echocardiograms: 2014 mild left ventricular outflow tract obstruction with mild left ventricular hypertrophy. 2019 mild LVH, mild , moderate to severe MR, moderate MS, mild pulmonary hypertension. 2020 no change 2021 no change 2022 stress echocardiogram, nondiagnostic due to blunted heart rate response, no ischemia at low workload, resting echo similar with decreased mitral regur gitation 2023 LETY showed normal LV EF, severe LVH, mild /mild to moderate AI, moderate MS, severe MR, severe dynamic LVOT obstruction with MARCELL of the mitral leaflet, moderate PHT. 2024 Hyperdynamic LVEF, severe LVH, at least moderate dynamic LVOT obstruction with MARCELL, small RV with normal function, mild /AI, moderate MS, indeterminate MR, severe PHT, moderately dilated IVC. 5 to 10 years ago his LVH was only mild and his mitral valvular disease was not severe. He has only been hospitalized twice in the past 10 years, in 2019 for 2 nights when creatinine was noted to be elevated (lisinopril discontinued and creatinine decreased from 2.43-2.0), the second admission was for 1 night in 2021 with new onset atrial flutter. Over the years, he has often noted "good days and bad days" but never felt poorly enough to proceed with further evaluation, due to concerns about renal failure if he were to receive contrast. Currently. it appears that he had fairly rapidly progressive left ventricular hypertrophy for unclear reasons (his blood pressure is generally controlled), although it would have seemed unlikely, given that he has 2 relatives that developed symptoms of hypertrophic cardiomyopathy in their 60s, the possibility that he has a late onset but rapidly progressing hypertrophic cardiomyopathy should be evaluated. Regardless of etiology, the net result of his current status is that he has significant dynamic outflow tract obstruction which has not responded to rate control (even when bradycardic) or adjustments in his diuretic (reducing or holding diuretic to reduce tendency to volume depletion likely would worsen his significant lower extremity edema). Given inability to manage this medically, referral for surgical or chemical myomectomy and/or mitral valve surgery is warranted. Evaluation likely would include cardiac catheterization (preferably with biplane imaging to reduce contrast risk) and cardiac MRI (to assess for hypertrophic cardiomyopathy). Since he is clinically stable and this has been a longstanding process, could potentially send him as an outpatient, but would like to ensure that he can be seen promptly. Will discuss case with [facility] heart failure team and determine whether he would be acceptable for transfer or whether outpatient evaluation is more appropriate. Admission and Anticipated Discharge Date Admission Date: September 07, 2024 Subjective Uneventful night. Slept better, can perform low-level activities without dyspnea. No chest pain, dyspnea at rest, subjective palpitations, or lightheadedness. Telemetry showed atrial flutter with ventricular rate generally in the 60 bpm range, 1 brief episode of ventricular rate up to 150 bpm. Physical Exam Physical Exam: No distress. BP normotensive. Pulse 62 bpm and irregular. Respirations 16 unlabored. Skin: No ecchymosis or generalized lesions. Stasis changes both lower extremities. HEENT: Benign. Neck: Jugular venous pulse just above the clavicle at 90 with prominent "v" waves. No carotid bruits. Lungs: generally clear. Dullness left base. Cardiac: Irregular rhythm. 3/6 systolic ejection murmur right upper sternal border radiating to the carotids (no obvious change in murmur upon standing), mildly reduced aortic closure sound, 3/6 apical holosystolic murmur radiating to the right sternal border and axilla. No diastolic murmur appreciated. Accentuated S1. No gallop or rub. Auscultated patient supine, seated, and standing, no change in his systolic ejection murmur. Abdomen: benign. Extremities: Brisk radial and dorsalis pedis pulses. Good capillary refill. 2-3+ pretibial edema (slightly decreased). Neurologic: Normal affect and conversation, nonfocal. Results & Data Vital Signs (Past 12 Hours) Vital Signs Temp Pulse Resp BP Pulse Ox O2 Del Method 09/11/24 11:46 97.9 F 62 16 118/70 93 Room Air 09/11/24 07:46 97.7 F 64 16 111/66 93 Room Air 09/11/24 07:15 Room Air Laboratory Results Hemoglobin 13.9, normal white count, platelet count 71,000. Normal electrolytes, BUN 78, creatinine 3.06. Diagnostic Findings Echocardiogram showed hyperdynamic LV with EF greater than 70%, severe left ventricular hypertrophy with at least moderate dynamic left ventricular for tract obstruction with peak outflow velocity greater than 3.5 m/s with systolic anterior motion of the mitral leaflet. Small right ventricular cavity with normal function. Mild /AI, moderate MS, indeterminate MR, severe pulmonary hypertension, moderately dilated IVC, large left pleural effusion. PG Care Time/CCT Total # of Minutes Spent Total Time Spent with Patient: Total time spent is greater than 50% in coordination of care (as documented) at patient's floor/unit and/or counseling patient: Coding Level of Care Code 16582 SUB INP/OBS CARE 350MIN Diagnoses Dynamic left ventricular outflow obstruction I51.89 Chronic heart failure with preserved ejection fraction I50.32 Heart failure chronicity: chronic Severe mitral regurgitation I34.0 Moderate mitral stenosis I05.0 Mild aortic stenosis I35.0 CKD (chronic kidney disease) N18.9 Chronic kidney disease stage: unspecified stage Pleural effusion, left J90 (2) (HFpEF) heart failure with preserved ejection fraction Heart failure chronicity: chronic Qualified Code(s): I50.32 - Chronic diastolic (congestive) heart failure (6) CKD (chronic kidney disease) Chronic kidney disease stage: unspecified stage Qualified Code(s): N18.9 - Chronic kidney disease, unspecified
--- NOTE | 2024-09-11 16:35 | Hospitalist Progress Note ---
Date of Service September 11, 2024 Assessment & Plan (1) Acute heart failure with preserved ejection fraction (HFpEF): Plan: Left effusion seen on chest x-ray which appears to be chronic. Appreciate cardiology consultation and recommendations. He will either be transferred to [facility] or follow-up with cardiology there as an outpatient. Cardiac echo report noted. Telemetry. (2) KAMRYN (acute kidney injury): Plan: Acute on chronic kidney disease stage III. Monitor intake and output. Serial labs (3) Severe mitral regurgitation: Plan: Seen on cardiac echo. Medical management (4) Digoxin toxicity: Plan: Digoxin, metoprolol, diltiazem are currently on hold. (5) Junctional bradycardia: Plan: Present on admission. Now resolved. Digoxin, metoprolol, diltiazem are all currently on hold. (6) Dynamic left ventricular outflow obstruction: Plan: Seen on cardiac echo. Telemetry. Cardiology consultation and recommendations appreciated. Discussions are underway regarding transfer to [facility] or follow-up with [facility] cardiology as an outpatient (7) Thrombocytopenia: Plan: Platelet count has drifted down to 71,000. No overt bleeding. Will follow Plan To be determined. Possible transfer to [facility] cardiology Admission and Anticipated Discharge Date Admission Date: September 07, 2024 Subjective Cardiology entry noted. Cardiac echo report noted. They are in discussion with [facility] to determine if the patient should be transferred or whether he can follow-up with them as an outpatient. Cardiac echo report noted. The patient is complaining of left heel pain with weightbearing. He has some superficial skin breakdown but no overt lesions. Wound care consultation requested. Review of Systems 2 Review of Systems: Constitutionalno fever or chills ENTno blurred vision, no double vision, no epistaxis, no sore throat Respiratoryno cough, no wheezing, no shortness of breath Cardiacno palpitations, no chest pain, no syncope Yasemin nausea, vomiting, diarrhea, melena, hematochezia GUno urinary retention, no urinary incontinence, no dysuria, no hematuria Musculoskeletalleft heel discomfort with weightbearing. No joint pain, no muscle tenderness Skinno bruising, no rashes, no pruritus Neurono isolated weakness, no paresthesia Psychno depression, no anxiety Physical Exam 2 Physical Exam: General-alert and oriented x3, no fever, no chills HEENT-head atraumatic and normocephalic, pupils equal and reactive to light, extraocular muscles intact Neck-no lymphadenopathy or thyromegaly, trachea midline Chest-right lung clear to auscultation. Left lung base dullness with diminished inspiratory sounds. No rales, wheezing or rhonchi Cardiac-regular rate and rhythm, normal S1 and S2 Abdomen-normal bowel sounds, no hepatosplenomegaly Extremities-no cyanosis, clubbing, or edema. Superficial skin breakdown involving left heel with tenderness Neuro-cranial nerves II through XII intact, motor and sensory function within normal limits, strength symmetrical, no focal deficits Psych-normal affect, normal mood Results & Data Results & Data Vital Signs (Past 12 Hours) Vital Signs Temp Pulse Resp BP Pulse Ox O2 Del Method 09/11/24 15:25 36.4 C L 61 19 115/70 96 Room Air 09/11/24 11:46 36.6 C 62 16 118/70 93 Room Air 09/11/24 07:46 36.5 C 64 16 111/66 93 Room Air 09/11/24 07:15 Room Air Laboratory Results 09/11/24 06:11 09/11/24 06:11 PG Care Time/CCT Total # of Minutes Spent Total Time Spent with Patient: Total time spent is greater than 50% in coordination of care (as documented) at patient's floor/unit and/or counseling patient: Coding Level of Care Code 73636 SUB INP/OBS CARE 3/50MIN Diagnoses Acute heart failure with preserved ejection fraction (HFpEF) I50.31 KAMRYN (acute kidney injury) N17.9 Severe mitral regurgitation I34.0 Digoxin toxicity T46.0X1A Junctional bradycardia R00.1 Dynamic left ventricular outflow obstruction I51.89 Thrombocytopenia D69.6
--- NOTE | 2024-09-11 19:13 | Nephrology Progress Note ---
Date of Service September 11, 2024 Assessment & Plan (1) KAMRYN (acute kidney injury): Plan: Non-oliguric. KAMRYN consistent with cardiorenal syndrome. Electrolytes acceptable. Volume status hypervolemic. No emergent indication for dialysis. Creatinine stable. I would suggest continued diuretics to encourage a negative fluid balance. Carly has responded reasonably well to ~80 mg of IV furosemide daily. Document strict I/O's. Repeat metabolic profile tomorrow AM. (2) Cardiorenal syndrome: Plan: Cardiology consult appreciated. Ultimately, will require additional work- up/intervention regarding valvular heart disease and LVOT obstruction to follow. (3) Acute heart failure with preserved ejection fraction (HFpEF): (4) CKD (chronic kidney disease): Plan: Chronic kidney disease IIIb-IV A3. CKD attributed to arterionephrosclerosis, hypertension, and cardiorenal syndrome. (5) Atrial flutter: Plan: AV whitney blocking agents held. (6) Moderate to severe mitral regurgitation: (7) Dynamic left ventricular outflow obstruction: Plan: Cardiology is discussing management with heart failure team at [facility]. (8) Digoxin toxicity: Plan: Resolved. The medication has been stopped. Admission and Anticipated Discharge Date Admission Date: September 07, 2024 Subjective No acute events overnight. Carly was seen and evaluated in his hospital room this AM. No acute complaints or concerns. LE edema persists, unchanged. He is breathing comfortably. Heart rate remains ~60 bpm. No chest pains or palpitations. Cardiology notes and TTE results reviewed. Review of Systems Review of Systems: All systems reviewed & are unremarkable except as noted in HPI & below Physical Exam Constitutional: + thin and + frail appearing; no acute d istress Eyes: no scleral abnormality and no corneal abnormality Neck: normal visual inspection and trachea midline Respiratory: normal respiratory effort Auscultation: lungs clear to auscultation bilaterally Cardiovascular: Rate/Rhythm: + bradycardic Heart Sounds: normal S1, normal S2 and + murmur Vessels: + JVD Extremities: + edema Musculoskeletal: Extremities: no cyanosis and no clubbing Skin: normal turgor and + turgor decreased; no jaundice Neurologic: Motor/Sensory: no tremor and no asterixis Psychiatric: Orientation: alert and oriented x 3 Results & Data Vital Signs (Past 12 Hours) Vital Signs Temp Pulse Resp BP Pulse Ox O2 Del Method 09/11/24 15:25 36.4 C L 61 19 115/70 96 Room Air 09/11/24 11:46 36.6 C 62 16 118/70 93 Room Air 09/11/24 07:46 36.5 C 64 16 111/66 93 Room Air 09/11/24 07:15 Room Air Laboratory Results Laboratory Results - last 24 hr 09/11/24 06:11 WBC 6.20 RBC 4.28 L Hgb 13.9 L Hct 42.0 MCV 98.1 MCH 32.5 MCHC 33.1 RDW Std Deviation 61.8 H RDW Coeff of Katelin 17.3 H Plt Count 71 L MPV 11.2 Immature Gran % (Auto) 0.5 Neut % (Auto) 80.5 Lymph % (Auto) 7.9 Moore % (Auto) 8.7 Eos % (Auto) 1.6 Baso % (Auto) 0.8 Neut # (Auto) 4.99 Lymph # (Auto) 0.49 L Moore # (Auto) 0.54 Eos # (Auto) 0.10 Baso # (Auto) 0.05 Immature Gran # (Auto) 0.03 Sodium 141 Potassium 3.9 Chloride 102 Carbon Dioxide 32 Anion Gap 7 BUN 78 H Creatinine 3.06 H Est Cr Clr Drug Dosing 25.2 eGFR 21.96 BUN/Creatinine Ratio 25.5 H Glucose 97 Calcium 9.1 Magnesium 1.8 Total Bilirubin 1.6 H AST 33 ALT 29 Alkaline Phosphatase 126 H Total Protein 6.0 Albumin 3.3 L Globulin 2.7 Albumin/Globulin Ratio 1.2 PG Care Time/CCT Total # of Minutes Spent Total Time Spent with Patient: Total time spent is greater than 50% in coordination of care (as documented) at patient's floor/unit and/or counseling patient: Coding Level of Care Code 14992 SUB INP/OBS CARE 350MIN Diagnoses KAMRYN (acute kidney injury) N17.9 Cardiorenal syndrome I13.10 Acute heart failure with preserved ejection fraction (HFpEF) I50.31 CKD (chronic kidney disease) N18.9 Chronic kidney disease stage: unspecified stage Atrial flutter I48.92 Atrial flutter type: unspecified Moderate to severe mitral regurgitation I34.0 Dynamic left ventricular outflow obstruction I51.89 Digoxin toxicity T46.0X1A (4) CKD (chronic kidney disease) Chronic kidney disease stage: unspecified stage Qualified Code(s): N18.9 - Chronic kidney disease, unspecified (5) Atrial flutter Atrial flutter type: unspecified Qualified Code(s): I48.92 - Unspecified atrial flutter
[2024-09-12 05:05] LABS: Hematocrit (blood only) 41.1 % (42.0-52.0); Hemoglobin 13.5 g/dl (14.0-18.0); Mean Corpuscular Hemoglobin 32.5 pg (25.0-34.0); Mean Corpuscular Hgb Conc 32.8 g/dL (32.0-36.0); Mean Corpuscular Volume 98.8 fL (80.0-100.0); Mean Platelet Volume 11.9 fL (9.4-12.4); Platelet Count 66 K/uL (130-400); RDW Coefficient of Variation 17.6 % (11.5-14.5); RDW Standard Deviation 62.4 fL (36.4-46.3); Red Blood Count 4.16 M/uL (4.70-6.10); White Blood Count 6.44 K/ul (4.8-10.8)
[2024-09-12 05:23] LABS: BUN Creatinine Ratio 25.2 (10-20); Creatinine Clr Calc Pharmacy 27.7 ml/min; Potassium 3.8 mmol/L (3.5-5.1)
[2024-09-12 07:37] VITALS: TEMP 97.3
--- NOTE | 2024-09-12 10:26 | Nephrology Progress Note ---
Date of Service September 12, 2024 Assessment & Plan (1) KAMRYN (acute kidney injury): Plan: Non-oliguric. KAMRYN consistent with cardiorenal syndrome. Electrolytes acceptable. Volume status remains hypervolemic. No emergent indication for dialysis. Creatinine stable. Slight improvement in creatinine noted in past 24 hours when diuretics are held. Unfortunately, Carly has complex heart disease which is driving his kidney dysfunction. We discussed in detail the difficulty managing his volume status. He is preload dependent from LVOT but also has significant evidence of CHF from valvular heart disease and kidney dysfunction. This makes regulating his volume status very complicated. I have provided 80 mg of PO furosemide this AM to see how he responds to oral diuretics. Document strict I/O's. Repeat metabolic profile tomorrow AM. (2) Cardiorenal syndrome: Plan: Case discussed with Dr. Brown this AM. Dr. Brown is discussing with heart failure specialists at [facility] to arrange more invasive evaluation. Cardiac MRI was discussed this AM as well as potential need for left heart cath. Ultimately, will require additional work-up/intervention regarding valvular heart disease and LVOT obstruction to follow. I would strongly advise that this be completed in the very near future. It is very likely that Carly will be rehospitalized with heart failure and worsening kidney dysfunction in the near future. I am not confident in the ability to manage his hemodynamics as an outpatient. (3) Acute heart failure with preserved ejection fraction (HFpEF): (4) CKD (chronic kidney disease): Plan: Chronic kidney disease IIIb-IV A3. CKD attributed to arterionephrosclerosis, hypertension, and cardiorenal syndrome. (5) Atrial flutter: Plan: AV whitney blocking agents held. Thankfully heart rate remains acceptable. HR improved overall. (6) Moderate to severe mitral regurgitation: (7) Dynamic left ventricular outflow obstruction: (8) Digoxin toxicity: Plan: Resolved. The medication has been stopped. Admission and Anticipated Discharge Date Admission Date: September 07, 2024 Subjective No acute events overnight. Carly was seen and evaluated with Dr. Brown this AM. Carly denies any acute complaints. He remains notably weak. He denies lightheadedness or dizziness. He appreciated holding diuretics yesterday. He notes that his urine output has dropped however. Lower extremity edema is stable. Heaviness in his legs continues to affect his ability to walk. He denies chest pains or palpitations. He denies significant dyspnea at rest. Understandable anxiety persists. He would like to move forward with more advanced cardiac evaluation and wants to know how to expedite the process. Appetite is fair. Swallowing difficulties seem to have improved. He notes that his speech is clearer. He describes some fogginess when trying to process information. Review of Systems Review of Systems: All systems reviewed & are unremarkable except as noted in HPI & below Physical Exam Constitutional: + thin and + frail appearing; no acute d istress Eyes: no scleral abnormality and no corneal abnormality Neck: normal visual inspection and trachea midline Respiratory: normal respiratory effort Auscultation: lungs clear to auscultation bilaterally Cardiovascular: Rate/Rhythm: + irregularly irregular Heart Sounds: normal S1, normal S2 and + murmur Vessels: + JVD Extremities: + edema Musculoskeletal: Extremities: no cyanosis and no clubbing Skin: no jaundice Neurologic: Motor/Sensory: no tremor and no asterixis Psychiatric: Orientation: alert and oriented x 3 Results & Data Vital Signs (Past 12 Hours) Vital Signs Temp Pulse Pulse Resp BP BP Pulse Ox 09/12/24 07:36 36.3 C L 75 18 143/78 H 95 09/12/24 02:33 36.5 C 72 18 120/73 92 09/11/24 22:57 59 L 09/11/24 22:52 36.5 C 66 18 127/69 94 O2 Del Method 09/12/24 07:36 Room Air 09/12/24 02:33 Room Air 09/11/24 22:57 09/11/24 22:52 Room Air Laboratory Results Laboratory Results - last 24 hr 09/12/24 04:43 WBC 6.44 RBC 4.16 L Hgb 13.5 L Hct 41.1 L MCV 98.8 MCH 32.5 MCHC 32.8 RDW Std Deviation 62.4 H RDW Coeff of Katelin 17.6 H Plt Count 66 L MPV 11.9 Sodium 140 Potassium 3.8 Chloride 104 Carbon Dioxide 28 Anion Gap 8 BUN 70 H Creatinine 2.78 H Est Cr Clr Drug Dosing 27.7 eGFR 24.64 BUN/Creatinine Ratio 25.2 H Glucose 89 Calcium 9.0 PG Care Time/CCT Total # of Minutes Spent Total Time Spent with Patient: Total time spent is greater than 50% in coordination of care (as documented) at patient's floor/unit and/or counseling patient: Coding Level of Care Code 20426 SUB INP/OBS CARE 50MIN Diagnoses KAMRYN (acute kidney injury) N17.9 Cardiorenal syndrome I13.10 Acute heart failure with preserved ejection fraction (HFpEF) I50.31 CKD (chronic kidney disease) N18.9 Chronic kidney disease stage: unspecified stage Atrial flutter I48.92 Atrial flutter type: unspecified Moderate to severe mitral regurgitation I34.0 Dynamic left ventricular outflow obstruction I51.89 Digoxin toxicity T46.0X1A (4) CKD (chronic kidney disease) Chronic kidney disease stage: unspecified stage Qualified Code(s): N18.9 - Chronic kidney disease, unspecified (5) Atrial flutter Atrial flutter type: unspecified Qualified Code(s): I48.92 - Unspecified atrial flutter
[2024-09-12] MEDS: FUROSEMIDE 80 MG TAB PO ONE (10:36)
[2024-09-12 11:15] VITALS: RESP 19; O2SAT 94
--- NOTE | 2024-09-12 12:29 | Cardiology Progress Note ---
Date of Service September 12, 2024 Assessment & Plan (1) Dynamic left ventricular outflow obstruction: (2) (HFpEF) heart failure with preserved ejection fraction: (3) Severe mitral regurgitation: (4) Moderate mitral stenosis: (5) Mild aortic stenosis: (6) CKD (chronic kidney disease): (7) Pleural effusion, left: Plan See overview from yesterday's progress note. Briefly, he has had longstanding mixed mitral valve disease but over the past 5 years seems to have developed severe left ventricular hypertrophy with associated dynamic left ventricular outflow tract obstruction. Given family history, possibility of hypertrophic cardiomyopathy will need to be evaluated. He also had recent junctional rhythm replacing his longstanding previously difficult to control atrial flutter with rapid ventricular response. Fortunately, the junctional rhythm resolved and is no longer bradycardic and despite being off all negative chronotropes he has not been more than briefly tachycardic (few minutes yesterday). If he does develop sustained tachycardia, he likely will need pacemaker for tachybradycardia syndrome. He should remain off digoxin, diltiazem, and metoprolol. One further complication is unexplained mild thrombocytopenia this admission. Currently, he appears clinically stable and is okay for discharge with close follow-up. Will arrange for him to see Akila Vega PA-C in heart failure clinic early next week. Discussed with Dr. Peralta, together we feel that the best initial outpatient diuretic regimen is furosemide 80 mg every other day (daily dose results in worsening renal function and absence of diuretic use results and worsening leg edema). He can make further adjustments in his diuretic regimen based on abrupt weight changes. Arranging for follow-up at [facility] by heart failure clinic, evaluation likely would ultimately include cardiac MRI (and possibly genetic testing) to assess for hypertrophic cardiomyopathy, cardiac catheterization to assess hemodynamics and evaluate potential CAD, and more current transesophageal echocardiogram (to reassess valvular disease and dynamic outflow tract obstruction). Ultimate interventions may potentially include chemical or surgical myomectomy, CABG, valve replacement, and pacemaker. Given his borderline renal function, he has been reluctant to pursue aggressive management in the past, but due to declining functional status and current hospitalization, he agrees that it is time to proceed with a full evaluation and the necessary interventions. Admission and Anticipated Discharge Date Admission Date: September 07, 2024 Subjective Uneventful night. Overall, he feels significantly better than when he arrived. Does not note dyspnea with minor exertion and no longer feels "fuzzy headed". He has remained off digoxin, diltiazem, and metoprolol without developing recurrent tachydysrhythmias. He denies any chest pain, dyspnea at rest, subjective palpitations, or lightheadedness. Telemetry showed atrial fibrillation with ventricular rate 50-70 bpm, only 1 brief episode of tachydysrhythmia occurred yesterday, none overnight or today. Physical Exam Physical Exam: No distress. BP normotensive. Pulse 62 bpm and irregular. Respirations 16 unlabored. Skin: No ecchymosis or generalized lesions. Stasis changes both lower extremities. HEENT: Benign. Neck: Jugular venous pulse just above the clavicle at 90 with prominent "v" waves. No carotid bruits. Lungs: generally clear. Dullness left base. Cardiac: Irregular rhythm. 3/6 systolic ejection murmur right upper sternal border radiating to the carotids (no obvious change in murmur upon standing), mildly reduced aortic closure sound, 3/6 apical holosystolic murmur radiating to the right sternal border and axilla. No diastolic murmur appreciated. Accentuated S1. No gallop or rub. Auscultated patient supine, seated, and standing, no change in his systolic ejection murmur. Abdomen: benign. Extremities: Brisk radial and dorsalis pedis pulses. Good capillary refill. 2-3+ pretibial edema (slightly decreased). Neurologic: Normal affect and conversation, nonfocal. Results & Data Vital Signs (Past 12 Hours) Vital Signs Temp Pulse Resp BP BP Pulse Ox O2 Del Method 09/12/24 11:15 97.3 F L 68 19 131/73 94 Room Air 09/12/24 07:36 97.3 F L 75 18 143/78 H 95 Room Air 09/12/24 02:33 97.7 F 72 18 120/73 92 Room Air Laboratory Results Normal WBC, hemoglobin 13.5, platelet count 66,000 (range 66,63179,000 this admission). Normal electrolytes, BUN 70, creatinine 2.78 (3.06 yesterday). PG Care Time/CCT Total # of Minutes Spent Total Time Spent with Patient: Total time spent is greater than 50% in coordination of care (as documented) at patient's floor/unit and/or counseling patient: Coding Level of Care Code 41704 SUB INP/OBS CARE 50MIN Diagnoses Dynamic left ventricular outflow obstruction I51.89 Chronic heart failure with preserved ejection fraction I50.32 Heart failure chronicity: chronic Severe mitral regurgitation I34.0 Moderate mitral stenosis I05.0 Mild aortic stenosis I35.0 CKD (chronic kidney disease) N18.9 Chronic kidney disease stage: unspecified stage Pleural effusion, left J90 (2) (HFpEF) heart failure with preserved ejection fraction Heart failure chronicity: chronic Qualified Code(s): I50.32 - Chronic diastolic (congestive) heart failure (6) CKD (chronic kidney disease) Chronic kidney disease stage: unspecified stage Qualified Code(s): N18.9 - Chronic kidney disease, unspecified
--- NOTE | 2024-09-12 12:55 | Discharge Summary ---
Discharge Summary Date of Service September 12, 2024 Principal Dx & Hospital Course #1 = Principal Diagnosis (1) Acute heart failure with preserved ejection fraction (HFpEF): Left effusion seen on chest x-ray which appears to be chronic. Appreciate cardiology consultation and recommendations. It has been decided that he will simply go home at this time with adjustment in his medications. Lasix is now 80 mg every other day. Diltiazem, metoprolol, and digoxin have been discontinued. He will follow-up with the congestive heart clinic here and also follow-up with [facility] cardiology as soon as possible. Cardiac echo report noted. Telemetry. (2) KAMRYN (acute kidney injury): Acute on chronic kidney disease stage III. Monitor intake and output. Serial labs (3) Severe mitral regurgitation: Seen on cardiac echo. Medical management (4) Digoxin toxicity: Digoxin, metoprolol, diltiazem has been discontinued . (5) Junctional bradycardia: Present on admission. Now resolved. Digoxin, metoprolol, diltiazem are all discontinued (6) Dynamic left ventricular outflow obstruction: Seen on cardiac echo. Telemetry. Cardiology consultation and recommendations appreciated. He will follow-up with his local parking attendant and also [facility] cardiology as soon as possible (7) Thrombocytopenia: Platelet count has drifted down to 66,000. No overt bleeding. Will follow [facility] today, September 12. Follow-up with local parking attendant and PCP as soon as possible. Also follow-up with local CHF clinic. Admission HPI Per Admitting Provider Carly is a 64-year-old male with PMH of HFpEF, left ventricular outflow obstruction, moderate to severe mitral regurg, atrial flutter, anxiety, HTN, and HLD. He presented on 09/07 for progressive weakness, bilateral leg swelling, and SOB with exertion. He denies SOB at rest, but his SOB with exertion has been getting significantly worse. He reports he can barely take 5 steps without feeling the need to sit down. He also endorses orthopnea. Only recent change in medication was that patient was decreased on metolazone at cardiology appointment on July 27. He reports good compliance with taking his medication at home, but does report he had significant difficulty swallowing. This has been an issue over the past 2 months. He says he is okay swallowing small pills, but has difficulty with big ones, and it makes him "not want to take pills". Patient had an EGD done in 2019 for his stomach, for short-term dysphagia, but then later improved; he does not believe he had a balloon dilation at that time. Patient did not take his regular medicine this morning. Patient lives by himself. He does not ambulate with a walker or cane. His daughter (Jose) at bedside does express concern for significant weight loss over the fall; patient reports used to be 225 pounds, but is currently 170. Patient's also recently left him. No sick contacts. Patient reports he watches his salt intake at home. He is still producing urine. He is a current tobacco cigarette smoker; smokes 0.75 packs/day. Patient's vitals are stable at time of admission. ED course: Lasix 80 mg IV ROS: Patient endorses progressive worsening of BURNS, LE edema, weight changes, difficulty swallowing, runny nose, coughing (attributes to sinuses), orthopnea diarrhea (resolved; had it last month), bright red blood in stool (ongoing; he reports he has had hemorrhoids before, but reports this looks different as it is "mucuous-y"). Patient denies fever, chills, night-sweats, chest pain, chest palpitations, pleu ritic CP, syncope, abdominal pain, N/V, melena, burning with urination, blood in urine, or decreased urinary frequency. Discharge Exam General-alert and oriented x3, no fever, no chills HEENT-head atraumatic and normocephalic, pupils equal and reactive to light, extraocular muscles intact Neck-no lymphadenopathy or thyromegaly, trachea midline Chest-right lung clear to auscultation. Left lung base dullness with diminished inspiratory sounds. No rales, wheezing or rhonchi Cardiac-regular rate and rhythm, normal S1 and S2 Abdomen-normal bowel sounds, no hepatosplenomegaly Extremities-no cyanosis, clubbing, or edema. Superficial skin breakdown involving left heel with tenderness Neuro-cranial nerves II through XII intact, motor and sensory function within normal limits, strength symmetrical, no focal deficits Psych-normal affect, normal mood Discharge Plan Discharge Items Patient Disposition: Home - Self-Care Reason For Visit: ACUTE CHF Discharge Diagnosis: Acute diastolic congestive heart failure, junctional bradycardia, acute kidney injury, thrombocytopenia Activity: Resume your previous activity Non-emergency contact: Primary Care Provider and [place] Guide Call non-emergency contact if: you have any medication questions and your symptoms worsen Follow-up/Referrals: John Brown MD [Primary Care Provider] - Diet: Regular and Heart Healthy Addtl Attending Provider Instructions: The following medications have been stopped: Digoxin, diltiazem, metoprolol. Take Lasix 80 mg every other day. A prescription has been sent to your pharmacy. See your PCP and parking attendant soon as possible Pending Studies at Discharge: No Stand-Alone Forms: My [facility], Smoking Cessation Medications and DC Order Prescriptions: New furosemide [Lasix] 80 mg tablet 80 mg PO Q OTHER DAY Qty: 30 0RF Continued ferrous sulfate 325 mg (65 mg iron) tablet 325 mg PO Q OTHER DAY Qty: 30 0RF atorvastatin 40 mg tablet 40 mg PO .COMPLEX Qty: 45 3RF Rx Instructions: 40 mg PO 1 tab every 3 days; allopurinol 300 mg tablet 300 mg PO DAILY Qty: 90 3RF omeprazole 20 mg capsule,delayed release(DR/EC) 20 mg PO BID Qty: 60 11RF Eliquis 5 mg tablet 5 mg PO BID Qty: 60 11RF Jardiance 10 mg tablet 10 mg PO DAILY Qty: 90 3RF nitroglycerin 0.4 mg tablet, sublingual 0.4 mg sublingual Q5M PRN (Reason: chest pain) Qty: 25 3RF Rx Instructions: do not exceed 3 doses per episode gabapentin 100 mg capsule 200 mg PO DAILY Qty: 60 4RF Rx Instructions: 1 hr before bedtime potassium gluconate 2.5 mEq Tablet 2.5 meq PO QAM cyanocobalamin (vitamin B-12) 1,000 mcg Tablet 1,000 mcg PO PM metolazone 2.5 mg tablet 2.5 mg PO WK Rx Instructions: Take Tuesday Discontinued metoprolol succinate 100 mg tablet extended release 24 hr 100 mg PO BID Qty: 180 3RF diltiazem HCl 120 mg capsule,extended release 24hr 120 mg PO DAILY Qty: 90 3RF digoxin 125 mcg (0.125 mg) tablet 125 mcg PO DAILY Qty: 90 2RF furosemide 20 mg tablet 20 mg PO DAILY Rx Instructions: MAY TAKE UP TO 80 MG IF NEEDED. RECENT FILL HISTORY IS 20 MG DAILY Discharge Orders: Discharge Order- CHF (Routine); Ordered 09/12/24 Ordered By: David Logan Admission Data Admit Date/Time: 09/07/24 18:50 Attending Provider: David Logan Admit Provider: Alex Rider Primary Care Provider: John Brown Other Providers: Alex Rider; Zheng Higgins; Niyah Mendez; John Brown Hospital Stay Data Consultations 09/07/24 17:47 ED Decision to Admit Stat 09/07/24 18:43 Consult Gastroenterology Routine 09/07/24 19:10 Consult Cardiology Routine 09/07/24 21:36 Consult Nephrology Routine Discharge Instructions Given to Patient (Per Discharging Provider) The following medications have been stopped: Digoxin, diltiazem, metoprolol. Take Lasix 80 mg every other day. A prescription has been sent to your pharmacy. See your PCP and parking attendant soon as possible Total Time Total Time Spent Total Time Spent (In Minutes): 50 minutes Coding Level of Care Code 49850 INP/OBS DISCH >30 MIN Diagnoses Acute heart failure with preserved ejection fraction (HFpEF) I50.31 KAMRYN (acute kidney injury) N17.9 Severe mitral regurgitation I34.0 Digoxin toxicity T46.0X1A Junctional bradycardia R00.1 Dynamic left ventricular outflow obstruction I51.89 Thrombocytopenia D69.6
[2024-09-12 15:48] VITALS: BP 143/78; PULSE 68
== END 2024-09-12 15:49 | disposition home or self-care (01) | DRG 291 ==
LOC: SUATTDRO → ED 15:08 → SUATTDRO 18:50 → 2S 18:50